=== PATIENT | female | born 1940 | race Caucasian/White ===

== ENCOUNTER → 2016-08-13 | Outpatient (CLI) | payer OTHER ==
[2016-08-13 12:29] LABS: BASO % 0.2 %; BASO ABS # 0.01 K/uL (0-0.2); COMPLETE YES; EOS % 1.3 %; HEMATOCRIT 39.9 % (37-47); IG% 0.2 %; LYMPH ABS # 0.89 K/uL (1.2-3.4); MEAN CELL VOLUME 107.5 fL (80-100); MEAN CORPUSCULAR HGB CONC 32.6 g/dl (32-36); MEAN PLATELET VOLUME 12.1 fL (7.4-10.4); MONO % 8.5 %; NEUT % 70.8 %; PLATELET COUNT 179 K/uL (130-400); RED BLOOD COUNT 3.71 M/uL (4.2-5.4); WHITE BLOOD COUNT 4.69 K/uL (4.8-10.8)
[2016-08-13 12:53] LABS: URINE APPEARANCE CLEAR (CLEAR); URINE BILIRUBIN NEG (NEG); URINE COLOR YELLOW; URINE EPITHELIAL CELL AUTO >30 /lpf (0-5); URINE NITRITE NEG (NEG); URINE PH 5.5 (4.5-7.5); UROBILINOGEN NEG (NEG)
[2016-08-13 12:54] LABS: MANUAL MICROSCOPIC REQUIRED? NO; REVIEW REQ? NO
[2016-08-13 12:58] LABS: BLOOD UREA NITROGEN 13 mg/dl (7-18); BUN/CREATININE RATIO 14.1 (10-20); CALCIUM 8.7 mg/dl (8.5-10.1); CARBON DIOXIDE 25 mmol/L (21-32); CHLORIDE 107 mmol/L (98-107); CREATININE 0.93 mg/dl (0.60-1.20); GLUCOSE 96 mg/dl (70-99); POTASSIUM 3.9 mmol/L (3.5-5.1); SODIUM 140 mmol/L (136-145)
[2016-08-13 13:10] LABS: URINE PROTIEN/CREAT RATIO 0.1 (0-0.2); URINE TOTAL PROTEIN 12.8 mg/dl (0-11.9)
== END | disposition home or self-care (01) ==
LOC: C.LABPVFM 07:24
PROVIDERS: ATTEND Family Medicine
DX: I10 Essential (primary) hypertension (principal)

== ENCOUNTER → 2016-10-11 | Outpatient (CLI) | payer OTHER ==
[2016-10-11 12:46] LABS: CALCIUM 8.7 mg/dl (8.5-10.1)
[2016-10-11 12:55] LABS: BLOOD UREA NITROGEN 17 mg/dl (7-18); BUN/CREATININE RATIO 16.8 (10-20); CARBON DIOXIDE 29 mmol/L (21-32); CHLORIDE 103 mmol/L (98-107); CHOLESTEROL 187 mg/dl (0-200); GLUCOSE 101 mg/dl (70-99); POTASSIUM 3.6 mmol/L (3.5-5.1); SODIUM 139 mmol/L (136-145); TRIGLYCERIDES 101 mg/dl (0-150); VERY LOW DENSITY LIPOPROT CALC 20 mg/dl
[2016-10-11 12:59] LABS: CHOLESTEROL/HDL RATIO 4.5; HDL CHOLESTEROL 42 mg/dl; LDL CHOLESTEROL CALCULATED 125 mg/dl
== END | disposition home or self-care (01) ==
LOC: C.LABPVFM 07:25
PROVIDERS: ATTEND Family Medicine
DX: I10 Essential (primary) hypertension (principal); Z13.220 Encounter for screening for lipoid disorders

== ENCOUNTER → 2017-03-31 | Outpatient (CLI) | payer OTHER ==
[2017-03-31 13:55] LABS: BLOOD UREA NITROGEN 15 mg/dl (7-18); BUN/CREATININE RATIO 14.1 (10-20); CALCIUM 8.5 mg/dl (8.5-10.1); CARBON DIOXIDE 30 mmol/L (21-32); CHLORIDE 103 mmol/L (98-107); CREATININE 1.05 mg/dl (0.60-1.20); GLUCOSE 102 mg/dl (70-99); POTASSIUM 3.5 mmol/L (3.5-5.1); SODIUM 136 mmol/L (136-145)
== END | disposition home or self-care (01) ==
LOC: C.LABPVFM 07:54
PROVIDERS: ATTEND Family Medicine
DX: I10 Essential (primary) hypertension (principal)

== ENCOUNTER → 2017-12-22 | Outpatient (CLI) | payer OTHER | END | disposition home or self-care (01) | LOC: C.LABPVFM 07:47 | PROVIDERS: ATTEND Family Medicine | DX: R77.1 Abnormality of globulin (principal) ==

== ENCOUNTER 2018-10-18 10:38 | Inpatient (IN) ==
[2018-10-18] MEDS ORDERED: CEFEPIME 2,000 MG/20 ML VIAL IV STA (11:12)
[2018-10-18 11:48] LABS: Hematocrit (blood only) 28.4 % (37-47); Hemoglobin 8.8 g/dL (12.0-16.0); Mean Corpuscular Volume 101.8 fL (80-100); Mean Platelet Volume 10.4 fL (7.4-10.4); Platelet Count 301 K/uL (130-400); RDW Standard Deviation 75.1 fL (36.4-46.3); Red Blood Count 2.79 M/uL (4.2-5.4); White Blood Count 4.96 K/uL (4.8-10.8)
--- NOTE | 2018-10-18 11:53 | XRay Report ---
XR chest 1V portable CLINICAL HISTORY: Sepsis. COMPARISON STUDY: PET/CT March 01, 2018. FINDINGS: There is no pneumothorax. A small left pleural effusion is suspected. Note is made of cardi omegaly. Mild interstitial thickening is present. A moderate-sized hiatal hernia is noted. Linear lef t lower lung opacity favors atelectasis. There are patchy bilateral opacities within the lungs. IMPRESSION: 1. Interstitial thickening and mild bilateral airspace opacities which may reflect pulmonary edema or an infectious process such as bronchopneumonia.. Radiographic follow up is recommended. 2. Suspected small left pleural effusion. No pneumothorax. Electronically signed by: Justin Zaidi M.D. 10/18/2018 11:52 AM
[2018-10-18 12:01] LABS: INR 1.6 (0.9-1.1); Partial Thromboplastin Ratio 1.1; Partial Thromboplastin Time 28.5 Seconds (21.0-31.0); Prothrombin Time 16.1 Seconds (9.0-12.0)
[2018-10-18 12:03] LABS: Albumin Level 2.5 gm/dl (3.4-5.0); BUN Creatinine Ratio 6.8 (10-20); Blood Urea Nitrogen 6 mg/dl (7-18); Calcium 8.2 mg/dl (8.5-10.1); Carbon Dioxide 26 mmol/L (21-32); Chloride 101 mmol/L (98-107); Creatinine Clr Calc Pharmacy 53.3 ml/min; Est GFR (African American) 75.5; Est GFR (Non-African American) 65.2; Glucose 87 mg/dl (70-99); Potassium 2.7 mmol/L (3.5-5.1); Sodium 139 mmol/L (136-145)
[2018-10-18 12:14] LABS: Alanine Aminotransferase 17 U/L (12-78); Albumin Globulin Ratio 0.7 (0.9-2); Alkaline Phosphatase 81 U/L (45-117); Aspartate Aminotransferase 18 U/L (15-37); Globulin 3.6 gm/dl (2.5-4.0); Total Protein 6.1 gm/dl (6.4-8.2); Troponin I < 0.015 ng/ml (0-0.045)
[2018-10-18 12:15] LABS: Anisocytosis Present; Polychromasia 1+
[2018-10-18 12:20] LABS: ALC (manual) 0.48 K/uL (1.2-3.4); Basophils # (manual) 0.09 K/uL (0-0.2); Basophils % (manual) 1.8 %; Blast # (manual) 0.04 K/uL (0-0); Blast Cells % (manual) 0.9 %; Lymphocytes # (manual) 0.48 K/uL (1.2-3.4); Lymphocytes % (manual) 9.7 %; Monocytes # (manual) 0.48 K/uL (0.11-0.59); Monocytes % (manual) 9.7 %; Neutrophils % (manual) 69.9 %
[2018-10-18] MEDS ORDERED: IBUPROFEN 600 MG TAB PO STA (12:48)
[2018-10-18 12:56] LABS: Appearance Urine Clear (Clear); Bacteria Urine Automated Negative (Negative); Bilirubin Urine Negative (Negative); Blood Urine Trace (Negative); Color Urine Dark Yellow; Epithelial Cell Urine Auto >30 /lpf (0-5); Glucose Urine UA Negative (Negative); Leukocyte Esterase Urine Negative (Negative); Nitrite Urine Negative (Negative); Protein Urine 2+ (Negative); Specific Gravity Urine 1.026 (1.000-1.030); Urobilinogen Urine Negative (Negative); pH Urine 5.5 (4.5-7.5)
[2018-10-18 13:05] LABS: Ketones Urine 4+ (Negative)
[2018-10-18] MEDS ORDERED: POTASSIUM CHLORIDE 20 MEQ TABCR PO STA (13:10)
[2018-10-18] MEDS ORDERED: POTASSIUM CHLORIDE / WTR 10 MEQ/100 ML PLCT IV ONE (13:10)
--- NOTE | 2018-10-18 13:26 | Emergency Department Note ---
Entered by Josselyn Givens acting as a scribe for Axle Medrano MD History of Present Illness General Chief complaint: Swelling/Edema to Extremity Stated complaint: UNABLE TO WALK SWOLLEN FEET,N/V/D,FEVER Time Seen by Provider: 10/18/18 11:04 Source: patient History of Present Illness Onset (ago): day(s) 3 Location: left (Lung) and right (Lung) Pain Consistency: + other (Persistent) Maximum Pain Intensity: 2 Quality: + other (Shortness of breath) Exacerbated By: + movement and + other (Lying flat) Associated symptoms: + cough, + fever/chills, + nausea/vomiting, + shortness of breath, + weakness and + other (Diarrhea, lower extremity swelling); no chest pain The patient is a 77 year old female presenting to the Emergency Department complaining of persistent shortness of breath starting 3 days ago. The patient reports that she is nauseous and vomits once per day. She states that she has a fever and experiences 3 to 4 episodes of diarrhea per day. She explains that she is short of breath and has a cough. She notes that lying flat and exerting herself worsens her shortness of breath. She adds that she feels weak and that her lower extremities are swollen. The patient reports that she is receiving chemotherapy for multiple myeloma. She states that she was supposed to receive chemotherapy 2 days ago but because of her symptoms listed above was not able to receive the medication. She explains that her last chemotherapy treatment was 10/09/18. She notes that [employer]TE[employer]CH[employer]ICIAN she called her PCP and oncologist who both recommended that she come to the ED. The patient denies chest pain. Home Medications Home Medications Medication Instructions Recorded Confirmed Type aspirin [Aspirin Low Dose] 81 mg PO DAILY 10/18/18 10/18/18 History bortezomib [Velcade] 0 mg SUBCUT DIRECTED 10/18/18 10/18/18 History calcium carbonate-vitamin D3 1 tab PO DAILY 10/18/18 10/18/18 History [Calcium 500 + D] denosumab [Xgeva] 0 mg SUBCUT MONTHLY 10/18/18 10/18/18 History dexamethasone 40 mg PO DIRECTED 10/18/18 10/18/18 History lenalidomide [Revlimid] 25 mg PO DIRECTED 10/18/18 10/18/18 History valacyclovir 500 mg PO DAILY 10/18/18 10/18/18 History Allergies Allergy/AdvReac Type Severity Reaction Status Date / Time iodine Allergy Mild SPOTS Unverified 06/06/09 03:24 BEHIND EARS,HEAVINESS IN LEGS AND ARMS X'S 24 HOURS No Known Drug Allergies Allergy Unknown Unverified 10/18/18 12:40 Past Med/Surg History Medical History Acute conjunctivitis of both eyes (Acute) Hypokalemia (Acute) Cholestatic jaundice (Acute) Hypersensitivity reaction (Acute) Immunocompromised patient (Acute) Acute respiratory failure with hypoxia (Acute) Pneumonia (Acute) Asthma Multiple myeloma Social History Feels Safe at Home: Yes Smoking Status: Former smoker Review of Systems See HPI for pertinent positives & negatives. and A total of 10 systems reviewed and were otherwise negative Physical Exam Vital Signs Vital Signs - 24 hr 10/18/18 10:45 10/18/18 11:15 10/18/18 11:18 Temperature 37.4 C Temperature Source Oral Sepsis Recent Fever Within 48 Hours Yes Sepsis Action Taken by Nursing MD Previously Notified Pulse Rate 96 H 90 Pulse Rate from SpO2 Sensor 90 Respiratory Rate 22 21 Blood Pressure 112/70 Blood Pressure Mean 84 Blood Pressure Position Sitting Pulse Oximetry 87 L 87 L 87 L Oxygen Delivery Method Room Air Room Air Nasal Cannula Oxygen Flow Rate 0 10/18/18 11:30 10/18/18 11:48 10/18/18 12:01 Temperature Temperature Source Sepsis Recent Fever Within 48 Hours Sepsis Action Taken by Nursing Pulse Rate 90 86 85 Pulse Rate from SpO2 Sensor 90 84 85 Respiratory Rate 24 23 22 Blood Pressure 118/58 L 113/54 L Blood Pressure Mean 78 73 Blood Pressure Position Pulse Oximetry 94 95 95 Oxygen Delivery Method Nasal Cannula Oxygen Flow Rate 2 2 2 10/18/18 12:02 10/18/18 12:15 10/18/18 12:16 Temperature Temperature Source Sepsis Recent Fever Within 48 Hours Sepsis Action Taken by Nursing Pulse Rate 85 85 85 Pulse Rate from SpO2 Sensor 85 85 85 Respiratory Rate 25 H 23 24 Blood Pressure 112/61 Blood Pressure Mean 78 Blood Pressure Position Pulse Oximetry 95 96 96 Oxygen Delivery Method Nasal Cannula Oxygen Flow Rate 2 10/18/18 12:35 10/18/18 12:59 10/18/18 14:00 Temperature 38.2 C H 37.1 C Temperature Source Sepsis Recent Fever Within 48 Hours Sepsis Action Taken by Nursing Pulse Rate 90 85 Pulse Rate from SpO2 Sensor 92 H 85 84 Respiratory Rate 24 24 Blood Pressure 140/57 L 140/57 L Blood Pressure Mean 84 84 Blood Pressure Position Pulse Oximetry 92 95 95 Oxygen Delivery Method Nasal Cannula Nasal Cannula Oxygen Flow Rate 2 2 2 GENERAL: Patient is in no acute distress. HEENT: No acute trauma, normocephalic atraumatic, mucous membranes moist, no nasal congestion. NECK: No stridor, no adenopathy, no meningismus, trachea is midline. LUNGS: Crackles bilaterally. Diminished breath sounds bilaterally. No wheezing. HEART: 2/6 systolic murmur. Regular rate and rhythm. ABDOMEN: Soft, nontender, bowel sounds positive, no hernias, no peritonitis. EXTREMITIES: No cyanosis. Full range of motion of all the joints without pain or difficulty, no signs for acute trauma. Moderate bilateral pedal edema. NEUROLOGIC: Oriented x 3, no acute motor or sensory deficits, no focal weakness. SKIN: No rash. No diaphoresis. Moderate jaundice. Course 1101: The patient was sent into the ED by [facility] oncology for nausea, vomiting, shortness of breath, cough and fever. 1106: The patient was evaluated in room C4, and a complete history and physical examination were performed. 1230: I discussed the patients case with Dr. Olga JARAMILLO hospitalist. He will evaluate the patient for further management. He asked that I order an US of the liver and gallbladder. 1232: I updated the patient at this time. Consultations Consultation #1: I discussed the patients case with Dr. Olga JARAMILLO hospitalist. He will evaluate the patient for further management. He asked that I order an US of the liver and gallbladder. Time: 12:30 Administered Medications Discontinued Medications Cefepime HCl (Maxipime) 2,000 mg in 20 mls @ 5 mls/min IV NOW STA; Protocol Stop: 10/18/18 11:15 Last Admin: 10/18/18 11:43 Dose: 5 mls/min Documented by: [id number] Potassium Chloride (K Tl / Wtr) 10 meq in 100 mls @ 100 mls/hr IV ONE ONE Stop: 10/18/18 14:09 Last Infusion: 10/18/18 15:09 Dose: 0 mls/hr Documented by: [id number] Admin: 10/18/18 14:04 Dose: 100 mls/hr Documented by: [id number] Ibuprofen (Motrin) 600 mg PO NOW STA Stop: 10/18/18 12:49 Last Admin: 10/18/18 12:56 Dose: 600 mg Documented by: [id number] Potassium Chloride (Klor-Con M20) 40 meq PO NOW STA Stop: 10/18/18 13:11 Last Admin: 10/18/18 14:04 Dose: 40 meq Documented by: [id number] Medical Decision Making Differential Diagnosis Differentials include sepsis, bacteremia, medication reaction, CHF, OR, anemia, liver or renal failure, UTI, neutropenia and electrolyte imbalance among others. Medical Records Attestation: I reviewed the patient's medical records. Home Medications Current Medication List: was personally reviewed by me Laboratory Data Attestation: I reviewed the patient's lab results. Result diagrams: 10/18/18 11:37 10/18/18 11:37 Lab Results 10/18/18 10/18/18 10/18/18 Range/Units 11:37 11:37 11:37 WBC 4.96 (4.8-10.8) K/uL RBC 2.79 L (4.2-5.4) M/uL Hgb 8.8 L (12.0-16.0) g/dL Hct 28.4 L (37-47) % MCV 101.8 H (80-100) fL MCH 31.5 (25-34) pg MCHC 31.0 L (32-36) g/dL RDW Std Deviation 75.1 H (36.4-46.3) fL RDW Coeff of Yanick 20.0 H (11.5-14.5) % Plt Count 301 (130-400) K/uL MPV 10.4 (7.4-10.4) fL Neutrophils % (Manual) 69.9 % Lymphocytes % (Manual) 9.7 % Monocytes % (Manual) 9.7 % Eosinophils % (Manual) 8.0 % Basophils % (Manual) 1.8 % Blast Cells % (Manual) 0.9 % Neutrophils # (Manual) 3.47 (1.4-6.5) K/uL Total Absolute Neuts 3.47 (1.4-6.5) K/uL Lymphocytes # (Manual) 0.48 L (1.2-3.4) K/uL Total Abs Lymphocytes 0.48 L (1.2-3.4) K/uL Monocytes # (Manual) 0.48 (0.11-0.59) K/uL Eosinophils # (Manual) 0.40 (0-0.5) K/uL Basophils # (Manual) 0.09 (0-0.2) K/uL Blast Cells # (Man) 0.04 H (0-0) K/uL Blood Smear Review Polychromasia 1+ Anisocytosis Present PT (9.0-12.0) Seconds INR (0.9-1.1) APTT (21.0-31.0) Seconds PTT Ratio Sodium 139 (136-145) mmol/L Potassium 2.7 L (3.5-5.1) mmol/L Chloride 101 (98-107) mmol/L Carbon Dioxide 26 (21-32) mmol/L Anion Gap 12.0 H (3-11) BUN 6 L (7-18) mg/dl Creatinine 0.86 (0.6-1.2) mg/dl Est Cr Clr Drug Dosing 53.3 ml/min Est GFR ( Amer) 75.5 Est GFR (Non-Af Amer) 65.2 BUN/Creatinine Ratio 6.8 L (10-20) Glucose 87 (70-99) mg/dl Lactate (0.4-2.0) mmol/L Calcium 8.2 L (8.5-10.1) mg/dl Total Bilirubin 3.0 H (0.2-1) mg/dl AST 18 (15-37) U/L ALT 17 (12-78) U/L Alkaline Phosphatase 81 (45-117) U/L Lactate Dehydrogenase (84-246) U/L Troponin I < 0.015 (0-0.045) ng/ml NT-Pro-B Natriuret Pep (0-1800) pg/ml Total Protein 6.1 L (6.4-8.2) gm/dl Albumin 2.5 L (3.4-5.0) gm/dl Globulin 3.6 (2.5-4.0) gm/dl Albumin/Globulin Ratio 0.7 L (0.9-2) Procalcitonin 3.99 H (0-0.5) ng/ml TSH 1.800 (0.300-4.500) uIu/ml Urine Color Urine Appearance (Clear) Urine pH (4.5-7.5) Ur Specific Hol[place] (1.000-1.030) Urine Protein (Negative) Urine Glucose (UA) (Negative) Urine Ketones (Negative) Urine Blood (Negative) Urine Nitrite (Negative) Urine Bilirubin (Negative) Urine Urobilinogen (Negative) Ur Leukocyte Esterase (Negative) Urine WBC (Auto) (0-5) /hpf Urine RBC (Auto) (0-4) /hpf U Hyaline Cast (Auto) (0-5) /lpf U Epithel Cells (Auto) (0-5) /lpf Urine Bacteria (Auto) (Negative) 10/18/18 10/18/18 10/18/18 Range/Units 11:37 11:37 11:37 WBC (4.8-10.8) K/uL RBC (4.2-5.4) M/uL Hgb (12.0-16.0) g/dL Hct (37-47) % MCV (80-100) fL MCH (25-34) pg MCHC (32-36) g/dL RDW Std Deviation (36.4-46.3) fL RDW Coeff of Yanick (11.5-14.5) % Plt Count (130-400) K/uL MPV (7.4-10.4) fL Neutrophils % (Manual) % Lymphocytes % (Manual) % Monocytes % (Manual) % Eosinophils % (Manual) % Basophils % (Manual) % Blast Cells % (Manual) % Neutrophils # (Manual) (1.4-6.5) K/uL Total Absolute Neuts (1.4-6.5) K/uL Lymphocytes # (Manual) (1.2-3.4) K/uL Total Abs Lymphocytes (1.2-3.4) K/uL Monocytes # (Manual) (0.11-0.59) K/uL Eosinophils # (Manual) (0-0.5) K/uL Basophils # (Manual) (0-0.2) K/uL Blast Cells # (Man) (0-0) K/uL Blood Smear Review Polychromasia Anisocytosis PT 16.1 H (9.0-12.0) Seconds INR 1.6 H (0.9-1.1) APTT 28.5 (21.0-31.0) Seconds PTT Ratio 1.1 Sodium (136-145) mmol/L Potassium (3.5-5.1) mmol/L Chloride (98-107) mmol/L Carbon Dioxide (21-32) mmol/L Anion Gap (3-11) BUN (7-18) mg/dl Creatinine (0.6-1.2) mg/dl Est Cr Clr Drug Dosing ml/min Est GFR ( Amer) Est GFR (Non-Af Amer) BUN/Creatinine Ratio (10-20) Glucose (70-99) mg/dl Lactate 1.7 (0.4-2.0) mmol/L Calcium (8.5-10.1) mg/dl Total Bilirubin (0.2-1) mg/dl AST (15-37) U/L ALT (12-78) U/L Alkaline Phosphatase (45-117) U/L Lactate Dehydrogenase 283 H (84-246) U/L Troponin I (0-0.045) ng/ml NT-Pro-B Natriuret Pep (0-1800) pg/ml Total Protein (6.4-8.2) gm/dl Albumin (3.4-5.0) gm/dl Globulin (2.5-4.0) gm/dl Albumin/Globulin Ratio (0.9-2) Procalcitonin (0-0.5) ng/ml TSH (0.300-4.500) uIu/ml Urine Color Urine Appearance (Clear) Urine pH (4.5-7.5) Ur Specific Hol[place] (1.000-1.030) Urine Protein (Negative) Urine Glucose (UA) (Negative) Urine Ketones (Negative) Urine Blood (Negative) Urine Nitrite (Negative) Urine Bilirubin (Negative) Urine Urobilinogen (Negative) Ur Leukocyte Esterase (Negative) Urine WBC (Auto) (0-5) /hpf Urine RBC (Auto) (0-4) /hpf U Hyaline Cast (Auto) (0-5) /lpf U Epithel Cells (Auto) (0-5) /lpf Urine Bacteria (Auto) (Negative) 10/18/18 10/18/18 Range/Units 11:37 12:30 WBC (4.8-10.8) K/uL RBC (4.2-5.4) M/uL Hgb (12.0-16.0) g/dL Hct (37-47) % MCV (80-100) fL MCH (25-34) pg MCHC (32-36) g/dL RDW Std Deviation (36.4-46.3) fL RDW Coeff of Yanick (11.5-14.5) % Plt Count (130-400) K/uL MPV (7.4-10.4) fL Neutrophils % (Manual) % Lymphocytes % (Manual) % Monocytes % (Manual) % Eosinophils % (Manual) % Basophils % (Manual) % Blast Cells % (Manual) % Neutrophils # (Manual) (1.4-6.5) K/uL Total Absolute Neuts (1.4-6.5) K/uL Lymphocytes # (Manual) (1.2-3.4) K/uL Total Abs Lymphocytes (1.2-3.4) K/uL Monocytes # (Manual) (0.11-0.59) K/uL Eosinophils # (Manual) (0-0.5) K/uL Basophils # (Manual) (0-0.2) K/uL Blast Cells # (Man) (0-0) K/uL Blood Smear Review Polychromasia Anisocytosis PT (9.0-12.0) Seconds INR (0.9-1.1) APTT (21.0-31.0) Seconds PTT Ratio Sodium (136-145) mmol/L Potassium (3.5-5.1) mmol/L Chloride (98-107) mmol/L Carbon Dioxide (21-32) mmol/L Anion Gap (3-11) BUN (7-18) mg/dl Creatinine (0.6-1.2) mg/dl Est Cr Clr Drug Dosing ml/min Est GFR ( Amer) Est GFR (Non-Af Amer) BUN/Creatinine Ratio (10-20) Glucose (70-99) mg/dl Lactate (0.4-2.0) mmol/L Calcium (8.5-10.1) mg/dl Total Bilirubin (0.2-1) mg/dl AST (15-37) U/L ALT (12-78) U/L Alkaline Phosphatase (45-117) U/L Lactate Dehydrogenase (84-246) U/L Troponin I (0-0.045) ng/ml NT-Pro-B Natriuret Pep 535 (0-1800) pg/ml Total Protein (6.4-8.2) gm/dl Albumin (3.4-5.0) gm/dl Globulin (2.5-4.0) gm/dl Albumin/Globulin Ratio (0.9-2) Procalcitonin (0-0.5) ng/ml TSH (0.300-4.500) uIu/ml Urine Color Dark Yellow Urine Appearance Clear (Clear) Urine pH 5.5 (4.5-7.5) Ur Specific Hol[place] 1.026 (1.000-1.030) Urine Protein 2+ H (Negative) Urine Glucose (UA) Negative (Negative) Urine Ketones 4+ H (Negative) Urine Blood Trace H (Negative) Urine Nitrite Negative (Negative) Urine Bilirubin Negative (Negative) Urine Urobilinogen Negative (Negative) Ur Leukocyte Esterase Negative (Negative) Urine WBC (Auto) 1-5 (0-5) /hpf Urine RBC (Auto) 5-10 H (0-4) /hpf U Hyaline Cast (Auto) 5-10 H (0-5) /lpf U Epithel Cells (Auto) >30 H (0-5) /lpf Urine Bacteria (Auto) Negative (Negative) Imaging Data Radiologist's Impression: Radiology results as stated below per my review and the radiologist's interpretation: XR chest 1V portable CLINICAL HISTORY: Sepsis. COMPARISON STUDY: PET/CT March 01, 2018. FINDINGS: There is no pneumothorax. A small left pleural effusion is suspected. Note is made of cardiomegaly. Mild interstitial thickening is present. A moderate-sized hiatal hernia is noted. Linear left lower lung opacity favors atelectasis. There are patchy bilateral opacities within the lungs. IMPRESSION: 1. Interstitial thickening and mild bilateral airspace opacities which may reflect pulmonary edema or an infectious process such as bronchopneumonia.. Radiographic follow up is recommended. 2. Suspected small left pleural effusion. No pneumothorax. Electronically signed by: Justin Zaidi M.D. 10/18/2018 11:52 AM ECG Data Attestation: I personally reviewed and interpreted this ECG as follows: Indication: SOB/dyspnea Rate (beats per minute): 89 Rhythm: normal sinus Findings: + other (Old inferior infarct. ); no PVC and no ST elevation Blood Pressure Blood Pressure Findings: Elevated blood pressure Blood Pressure Disposition: further management by hospitalist MDM Narrative There is no leukocytosis. Patient is anemic but she has been anemic lately, likely from her chemotherapy-I was able to review labs from the [facility] system. There is a normal platelet count. INR is elevated at 1.6, this is concerning for liver injury. Potassium was low at 2.7, no kidney failure. Bilirubin was elevated at 3, this explains her jaundice. The alk phos and AST/ALT were normal. The patient appeared to be in a euthyroid state. Chest film suggests a patchy pneumonia versus some CHF. No pneumothorax. Lactic acid level was not elevated making severe sepsis less likely. BNP was not elevated making CHF less likely. EKG showed a sinus rhythm, no acute ischemia. Cardiac enzyme testing x1 is not consistent with acute cardiac injury. Blood cultures are pending. The patient presents with jaundice, pedal edema, hypoxia and cough. She has had a fever. She appears to have pneumonia by work-up. The edema and liver issues may be related to this infection although, these latter issues may be from her chemo medications themselves. The patient received IV ceftriaxone as antibiotic coverage. She was given oral Motrin for her fever. She received oral and IV potassium for the lower potassium value. Patient is in need of a hospital stay, I spoke to her and to case management. The on-call hospitalist has been consulted. The patient is not stable for discharge home. Impression & Plan Hypoxia, Liver failure, Fluid overload, Anemia, Fever, Pneumonia Discharge Plan Visit Data Chief Complaint: Swelling/Edema to Extremity Stated Complaint: UNABLE TO WALK SWOLLEN FEET,N/V/D,FEVER ED Provider: Axel Medrano Discharge Problem: Hypoxia, Liver failure, Fluid overload, Anemia, Fever, Pneumonia Patient Disposition: Being Evaluated by Hospitalist Forms Stand Alone Forms: My [facility] Prescriptions Prescriptions: No Action valacyclovir 500 mg tablet 500 mg PO DAILY RF: 0 aspirin [Aspirin Low Dose] 81 mg Tablet,Delayed Release (Dr/Ec) 81 mg PO DAILY RF: 0 dexamethasone 4 mg tablet 40 mg PO DIRECTED RF: 0 Velcade 3.5 mg Recon Soln subcut DIRECTED RF: 0 calcium carbonate-vitamin D3 [Calcium 500 + D] 500 mg(1,250mg) -200 unit Tablet 1 tab PO DAILY RF: 0 Revlimid 25 mg capsule 25 mg PO DIRECTED RF: 0 Xgeva 120 mg/1.7 mL (70 mg/mL) Solution SUBCUT MONTHLY RF: 0 Referrals Referrals: Andres Maria MD [Primary Care Provider] - Discharge Problem: Liver failure Qualifiers: Liver failure chronicity: unspecified chronicity Hepatic coma status: without hepatic coma Qualified Code(s): K72.90 - Hepatic failure, unspecified without coma Fluid overload Qualifiers: Hypervolemia type: unspecified Qualified Code(s): E87.70 - Fluid overload, unspecified Anemia Qualifiers: Anemia type: unspecified type Qualified Code(s): D64.9 - Anemia, unspecified Fever Qualifiers: Fever type: unspecified Qualified Code(s): R50.9 - Fever, unspecified Pneumonia Qualifiers: Pneumonia type: due to unspecified organism Laterality: bilateral Lung location: unspecified part of lung Qualified Code(s): J18.9 - Pneumonia, unspecified organism The scribe's documentation has been prepared under my direction and personally reviewed by me in its entirety. I confirm that the note above accurately reflects all work, treatment, procedures, and medical decision making performed by me.
--- NOTE | 2018-10-18 13:39 | Ultrasound Report ---
US gallbladder HISTORY: 77 years-old Female jaundice acute jaundice COMPARISON: PET CT 03/01/2018 TECHNIQUE: Multiple real-time sonographic images of the abdominal right upper quadrant were obtained assessing grayscale appearance and color flow FINDINGS: Pancreas is mostly obscured by bowel gas. The visualized portions of the pancreas appear unremarkable . Increased echogenicity of the liver suggests hepatic steatosis. No focal hepatic mass lesion or mar ginal nodularity to suggest cirrhosis. No intrahepatic biliary ductal dilation. Gallbladder is unrema rkable. No cholelithiasis, gallbladder wall thickening or pericholecystic fluid. Common bile duct is normal, 5 mm. There is an exophytic 4.6 cm cyst about the superior pole right kidney. No right-sided hydronephrosis . IMPRESSION: 1. Hepatic steatosis. 2. No cholelithiasis or sonographic evidence of acute cholecystitis. 3. No biliary ductal dilation. The above report was generated using voice recognition software. It may contain grammatical, syntax o r spelling errors. Electronically signed by: Paulo Olvera M.D. 10/18/2018 1:38 PM
--- NOTE | 2018-10-18 14:35 | History & Physical Report ---
Date of Service October 18, 2018 Assessment & Plan (1) Pneumonia: Bilateral appearing. Continue intravenous cefepime and vancomycin. Consult infectious disease. Obtain sputum culture if sputum is produced Present on Admission?: Yes (2) Acute respiratory failure with hypoxia: Supplemental oxygen to maintain saturation greater than 90%. Wean off as tolerated Present on Admission?: Yes (3) Immunocompromised patient: Due to chemotherapy for multiple myeloma. Present on Admission?: Yes (4) Hypersensitivity reaction: Possible hypersensitivity producing multiple symptoms including edema, cholestatic jaundice, nausea, vomiting, diarrhea, weakness. Consult oncology. Multiple medications currently on hold Present on Admission?: Yes (5) Cholestatic jaundice: Total bilirubin mildly elevated. Abdominal ultrasound negative except for hepatic steatosis. No evidence of biliary obstruction. Will follow (6) Hypokalemia: Oral replacement. Serial labs Present on Admission?: Yes (7) Acute conjunctivitis of both eyes: Gentamicin eyedrops. Present on Admission?: Yes History of Present Illness Chief Complaint: Nonproductive cough, fever, shortness of breath, swelling Primary Care Provider: Andres Maria MD 77-year-old female being treated for multiple myeloma with Velcade and Xgeva, and Revlimid. She has developed a nonproductive cough along with fever and weakness and edema. She has evidence of bilateral pneumonia on chest x-ray and is mildly hypoxic on room air at 87%. Lactic acid is 1.7. She is also hypokalemic. Her total bilirubin is slightly elevated and she may have cholestatic jaundice. Liver functions are normal except for mildly elevated LDH. Gallbladder ultrasound reveals hepatic steatosis but no obstruction. This will be followed. Infectious disease consultation and oncology consultation will be requested. She will be given cefepime and vancomycin for now. She has been pancultured. She is admitted for further evaluation and treatment. Allergies Allergy/AdvReac Type Severity Reaction Status Date / Time iodine Allergy Mild SPOTS Unverified 06/06/09 03:24 BEHIND EARS,HEAVINESS IN LEGS AND ARMS X'S 24 HOURS No Known Drug Allergies Allergy Unknown Unverified 10/18/18 12:40 Home Medications Home Medications Medication Instructions Recorded Confirmed Type aspirin [Aspirin Low Dose] 81 mg PO DAILY 10/18/18 10/18/18 History bortezomib [Velcade] 0 mg SUBCUT DIRECTED 10/18/18 10/18/18 History calcium carbonate-vitamin D3 1 tab PO DAILY 10/18/18 10/18/18 History [Calcium 500 + D] denosumab [Xgeva] 0 mg SUBCUT MONTHLY 10/18/18 10/18/18 History dexamethasone 40 mg PO DIRECTED 10/18/18 10/18/18 History lenalidomide [Revlimid] 25 mg PO DIRECTED 10/18/18 10/18/18 History valacyclovir 500 mg PO DAILY 10/18/18 10/18/18 History Past Med/Surg History Medical History Asthma Multiple myeloma Social History Feels Safe at Home: Yes Smoking Status: Former smoker Review of Systems Review of Systems: Constitutional-fever, chills, weakness ENT-no blurred vision, no double vision, no epistaxis, no sore throat Respiratory-nonproductive cough, shortness of breath Cardiac-no palpitations, no chest pain, no syncope GI-persistent nausea vomiting and diarrhea -no urinary retention, no urinary incontinence, no dysuria, no hematuria Musculoskeletal-no joint pain, no muscle tenderness. Gradual onset of edema Skin-no bruising, no rashes, no pruritus Neuro-worsening generalized weakness Psych-no depression, no anxiety Physical Exam Physical Exam: General-alert and oriented x3. Complaining of generalized weakness HEENT-head atraumatic and normocephalic, TMs intact bilaterally, pupils equal and reactive to light, extraocular muscles intact. Sclera mildly icteric Neck-no lymphadenopathy or thyromegaly, trachea midline Chest-faint coarse bilateral inspiratory rales. No wheezing. No dullness to percussion Cardiac-regular rate and rhythm, normal S1 and S2, no murmurs Abdomen-normal bowel sounds, nontender, no hepatosplenomegaly Extremities-no cyanosis, clubbing. 1+ pitting edema bilateral lower extremities Neuro-cranial nerves II through XII intact, motor and sensory function within normal limits, strength symmetrical with generalized weakness, no focal deficits Psych-normal affect, normal mood Results & Data Vital Signs (Past 12 Hours) Vital Signs Temp Pulse Resp BP Pulse Ox 10/18/18 12:59 140/57 L 95 10/18/18 12:35 38.2 C H 90 24 140/57 L 92 10/18/18 12:16 85 24 112/61 96 10/18/18 12:15 85 23 96 10/18/18 12:02 85 25 H 95 10/18/18 12:01 85 22 113/54 L 95 10/18/18 11:48 86 23 118/58 L 95 10/18/18 11:30 90 24 94 10/18/18 11:18 87 L 10/18/18 11:15 90 21 87 L 10/18/18 10:45 37.4 C 96 H 22 112/70 87 L Laboratory Results 10/18/18 11:37 10/18/18 11:37 PG Care Time/CCT Total # of Minutes Spent Total Time Spent with Patient: Total time spent is greater than 50% in coordination of care (as documented) at patient's floor/unit and/or counseling patient:
[2018-10-18] MEDS ORDERED: VANCOMYCIN HCL 1,000 MG in SODIUM CHLORIDE 0.9% 250 ML IV SCH (16:39)
[2018-10-18] MEDS ORDERED: ALUMINUM/MAGNESIUM SUSP 30 ML UDC PO PRN (16:39)
[2018-10-18] MEDS ORDERED: ONDANSETRON INJ 2 MG/ML 2 ML VIAL IV PRN (16:39)
[2018-10-18] MEDS ORDERED: ACETAMINOPHEN 325 MG TAB PO PRN (16:39)
[2018-10-18] MEDS ORDERED: VANCOMYCIN CONSULT ACTIVE PRN (16:39)
[2018-10-18] MEDS ORDERED: VANCOMYCIN HCL 1,750 MG in SODIUM CHLORIDE 0.9% 500 ML IV ONE (17:45)
[2018-10-18] MEDS: SODIUM CHLORIDE 0.9% 1000ML 1,000 ML IV SCH (17:59)
[2018-10-18] MEDS: GENTAMICIN SULFATE 0.3% OP SOLN 5 ML BTL OPB SCH ×2 (18:04→21:09)
--- NOTE | 2018-10-18 20:18 | Pharmacy Report ---
Pharmacy Abx Initial Consult - Date of Service October 18, 2018 - Pharmacy Dosing Scope Date of Consult: 10/18/18 Consultation requested by: Dr. Espinoza Pharmacy is consulted to initiate Vancomycin IV dosing therapy, order appropriate labs and adjust drug dose/frequency. - Subjective The patient is a 77 year old F admitted on 10/18/18 14:32. - Objective Height: 5 ft 4 in Weight: 75.2 kg Vital Signs (Past 12hrs): Vital Signs Temp Pulse Pulse Resp BP BP Pulse Ox 10/18/18 18:47 36.9 C 82 20 133/66 91 10/18/18 16:40 36.9 C 87 18 120/64 93 10/18/18 16:30 83 10/18/18 16:00 89 18 144/58 H 99 10/18/18 14:00 37.1 C 85 24 95 10/18/18 12:59 140/57 L 95 10/18/18 12:35 38.2 C H 90 24 140/57 L 92 10/18/18 12:16 85 24 112/61 96 10/18/18 12:15 85 23 96 10/18/18 12:02 85 25 H 95 10/18/18 12:01 85 22 113/54 L 95 10/18/18 11:48 86 23 118/58 L 95 10/18/18 11:30 90 24 94 10/18/18 11:18 87 L 10/18/18 11:15 90 21 87 L 10/18/18 10:45 37.4 C 96 H 22 112/70 87 L Lab Results (24hrs): Laboratory Tests (24 Hours) 10/18/18 10/18/18 10/18/18 11:37 11:37 11:37 WBC 4.96 Creatinine 0.86 Est Cr Clr Drug Dosing 53.3 Procalcitonin 3.99 H Micro Results: 10/18/18 11:37 Aerobic Blood Culture - Pending Blood Anaerobic Blood Culture - Pending 10/18/18 11:37 Aerobic Blood Culture - Pending Blood Anaerobic Blood Culture - Pending - Risk Factors for Resistance * Immunocompromised - pt being treated for multiple myeloma. Pt on Velcade, Revlimid, and Xgeva. Last dose 10/09/18 * - Assessment & Plan Assessment 77 year old F with multiple myeloma presented to ED upon suggestion of her PCP and Oncologist for worsening nonproductive cough, fever, and generalized weakness. ID consulted. Chest XRay shows possible bi-lateral pneumonia, CT recommended. Procal 3.99, lactic acid 1.7. Spiked one fever since admission of 38.2. MRSA swab pending to aid in possible deescalation. Plan Vancomycin and Cefepime for treatment of pneumonia. Vancomycin IV * Estimated PK Parameters: Vd 0.7 L/kg, Abiel 0.048 hr-1, t1/2 14 hr * Loading dose: 1750 mg (23.2 mg/kg) * Maintenance dose: 1000 mg IV (13.3 mg/kg) every 16 hours * Goal trough level : 15 to 20 mcg/mL * Trough/Random level ordered for 10/21/18 before 4th maintenance dose. * Cefepime * Not a pharmacy consult but dose is appropriate for renal function and clinical indication. * Target dose 2gm IV Q8h * For CrCl 30-60 mL/min -- 2 gm IV q12h. Pharmacy will continue to follow and will adjust dose/frequency as necessary. Thank you.
[2018-10-18] MEDS: POTASSIUM CHLORIDE 10 MEQ TABCR PO SCH (21:10)
[2018-10-19] MEDS: CEFEPIME 2,000 MG in SYRINGE 7.5 ML IV SCH ×3 (00:09→23:45)
[2018-10-19 05:49] LABS: Basophils # (auto) 0.03 K/uL (0-0.2); Basophils % (auto) 0.9 %; Eosinophils # (auto) 0.36 K/uL (0-0.5); Eosinophils % (auto) 10.4 %; Hematocrit (blood only) 26.6 % (37-47); Hemoglobin 8.3 g/dL (12.0-16.0); Immature Granulocytes # (auto) 0.02 K/uL (0.00-0.02); Immature Granulocytes % (auto) 0.6 %; Lymphocytes # (auto) 0.23 K/uL (1.2-3.4); Lymphocytes % (auto) 6.6 %; Mean Corpuscular Hgb Conc 31.2 g/dL (32-36); Mean Corpuscular Volume 103.1 fL (80-100); Mean Platelet Volume 10.4 fL (7.4-10.4); Monocytes # (auto) 0.39 K/uL (0.11-0.59); Monocytes % (auto) 11.3 %; Neutrophils # (auto) 2.43 K/uL (1.4-6.5); Neutrophils % (auto) 70.2 %; Nucleated RBC # (auto) 0.03 K/uL (0-0); Nucleated RBC % (auto) 0.8 %; Platelet Count 301 K/uL (130-400); RDW Coefficient of Variation 20.1 % (11.5-14.5); RDW Standard Deviation 76.4 fL (36.4-46.3); Red Blood Count 2.58 M/uL (4.2-5.4); White Blood Count 3.46 K/uL (4.8-10.8)
[2018-10-19 06:16] LABS: Anisocytosis Present; Dohle Bodies 1+; Giant Platelets 1+
[2018-10-19] MEDS: POTASSIUM CHLORIDE 10 MEQ TABCR PO SCH ×2 (08:06→20:42)
[2018-10-19] MEDS: ASPIRIN 81 MG ECTAB PO SCH (08:06)
[2018-10-19] MEDS: VALACYCLOVIR HCL 500 MG TABLET PO SCH (08:06)
[2018-10-19] MEDS: CALCIUM 600MG + VIT D 400 IU TAB PO SCH (08:07)
[2018-10-19] MEDS: GENTAMICIN SULFATE 0.3% OP SOLN 5 ML BTL OPB SCH ×4 (08:07→20:41)
[2018-10-19 08:38] LABS: BUN Creatinine Ratio 10.3 (10-20); Bilirubin Direct 0.7 mg/dl (0-0.2); Calcium 7.5 mg/dl (8.5-10.1); Creatinine Clr Calc Pharmacy 73.1 ml/min; Est GFR (African American) 99.8; Est GFR (Non-African American) 86.1
[2018-10-19 08:45] LABS: Albumin Globulin Ratio 0.6 (0.9-2); Bilirubin,Total 2.3 mg/dl (0.2-1); Globulin 3.1 gm/dl (2.5-4.0); Total Protein 5.1 gm/dl (6.4-8.2)
[2018-10-19] MEDS: SODIUM CHLORIDE 0.9% 1000ML 1,000 ML IV SCH ×2 (09:35→19:31)
[2018-10-19] MEDS ORDERED: VANCOMYCIN HCL 1,000 MG in SODIUM CHLORIDE 0.9% 250 ML IV SCH (10:00)
--- NOTE | 2018-10-19 10:44 | Infectious Disease Consult ---
Date of Consultation October 19, 2018 Assessment & Plan (1) Pneumonia: 77-year-old female with metastatic myeloma on chemotherapy, now with evidence of bilateral pneumonia with elevated procalcitonin levels. Agree with need for broad-spectrum antibiotics, would add coverage for atypical pathogens such as Legionella given recent travel. Vancomycin will be discontinued as MRSA screen is negative. Further serologies and urine studies ordered. Will follow. (2) Immunocompromised patient: History of Present Illness Reason for Consultation: Bilateral pneumonia in immunocompromised patient Attending Physician: Hipolito Salomon MD History of Present Illness 77-year-old female with known metastatic multiple myeloma on chemotherapy, last several weeks ago, who was admitted to the hospital with 3 to 4 days of progressively worsening shortness of breath, cough, with fever, weakness and fatigue. Has been found to have evidence of bilateral pneumonitis with elevated procalcitonin levels. Has been started on vancomycin and cefepime. Patient also with elevated bilirubin, ultrasound negative for disease. MRSA screen negative. Patient states that she traveled to [place] prior to her illness, spent 1 week cruising back to [facility] then short stay in [facility]. No companions ill, no other ill contacts. Allergies Allergy/AdvReac Type Severity Reaction Status Date / Time iodine Allergy Mild SPOTS Unverified 06/06/09 03:24 BEHIND EARS,HEAVINESS IN LEGS AND ARMS X'S 24 HOURS No Known Drug Allergies Allergy Unknown Unverified 10/18/18 12:40 Home Medications Home Medications Medication Instructions Recorded Confirmed Type aspirin [Aspirin Low Dose] 81 mg PO DAILY 10/18/18 10/18/18 History bortezomib [Velcade] 0 mg SUBCUT DIRECTED 10/18/18 10/18/18 History calcium carbonate-vitamin D3 1 tab PO DAILY 10/18/18 10/18/18 History [Calcium 500 + D] denosumab [Xgeva] 0 mg SUBCUT MONTHLY 10/18/18 10/18/18 History dexamethasone 40 mg PO DIRECTED 10/18/18 10/18/18 History lenalidomide [Revlimid] 25 mg PO DIRECTED 10/18/18 10/18/18 History valacyclovir 500 mg PO DAILY 10/18/18 10/18/18 History Patient History Medical History Acute conjunctivitis of both eyes (Acute) Hypokalemia (Acute) Cholestatic jaundice (Acute) Hypersensitivity reaction (Acute) Immunocompromised patient (Acute) Acute respiratory failure with hypoxia (Acute) Pneumonia (Acute) Asthma Multiple myeloma Social History Preferred Language: [place]i Beliefs That Will Affect Care: None Current Living Situation: Spouse Other Information That Helps Us Care for You: No Feels Safe at Home: Yes Safety Concerns: Feels Safe At This Time Smoking Status: Former smoker Hx Alcohol Use: No Hx Substance Use: No Review of Systems Review of Systems: All systems reviewed & are unremarkable except as noted in HPI & below Physical Exam Constitutional: WD/WN, vitals as above comfortable; no acute distress Eyes: no eyelid abnormality and no conjunctival abnormality Icteric sclerae ENMT: external ear and nose normal, oropharynx normal Neck: trachea midline, no thyromegaly neck nontender Respiratory: normal respiratory effort, lungs clear to auscultation normal percussion; does not use accessory muscles Cardiovascular: Rate/Rhythm: regular rate and regular rhythm Heart Sounds: normal S1 and normal S2; no gallop, no murmur and no cardiac rub Vessels: normal peripheral pulses; no JVD Gastrointestinal (Abdomen): normal bowel sounds, soft, nontender, no hepatosplenomegaly Musculoskeletal: no cyanosis or clubbing, extremities motor strength 5/5 Spine: thoracic spine normal to inspection and lumbar spine normal to inspection; no cervical spinal tenderness Skin: no rashes, warm and dry normal turgor; no lesions Neurologic: patellar DTR's 2+ bilat, sensation intact no focal motor deficits Psychiatric: A+Ox3, euthymic affect Orientation: cooperative Lymphatic: no cervical or axillary lymphadenopathy no inguinal lymphadenopathy Results & Data Vital Signs (Past 12 Hours) Vital Signs Temp Pulse Pulse Resp BP Pulse Ox 10/19/18 08:00 37.3 C 82 18 111/57 L 92 10/19/18 03:00 37.1 C 74 18 111/60 97 10/18/18 23:06 37.1 C 75 18 104/59 L 98 Laboratory Results Short CBC 10/18/18 10/19/18 Range/Units 11:37 05:14 WBC 4.96 3.46 L (4.8-10.8) K/uL Hgb 8.8 L 8.3 L (12.0-16.0) g/dL Hct 28.4 L 26.6 L (37-47) % Plt Count 301 301 (130-400) K/uL BMP 10/18/18 10/19/18 11:37 05:14 Sodium 139 141 Potassium 2.7 L 3.0 L Chloride 101 107 Carbon Dioxide 26 28 BUN 6 L 7 Creatinine 0.86 0.64 Glucose 87 67 L Calcium 8.2 L 7.5 L Cardiac Enzymes 10/18/18 Range/Units 11:37 Troponin I < 0.015 (0-0.045) ng/ml Liver Function 10/18/18 10/19/18 Range/Units 11:37 05:14 Total Bilirubin 3.0 H 2.3 H (0.2-1) mg/dl Direct Bilirubin 0.7 H (0-0.2) mg/dl AST 18 17 (15-37) U/L ALT 17 15 (12-78) U/L Alkaline Phosphatase 81 74 (45-117) U/L Albumin 2.5 L 2.0 L (3.4-5.0) gm/dl Urine 10/18/18 Range/Units 12:30 Urine Color Dark Yellow Urine Appearance Clear (Clear) Urine pH 5.5 (4.5-7.5) Ur Specific [place] 1.026 (1.000-1.030) Urine Protein 2+ H (Negative) Urine Glucose (UA) Negative (Negative) Diagnostic Findings XR chest 1V portable CLINICAL HISTORY: Sepsis. COMPARISON STUDY: PET/CT March 01, 2018. FINDINGS: There is no pneumothorax. A small left pleural effusion is suspected. Note is made of cardiomegaly. Mild interstitial thickening is present. A moderate-sized hiatal hernia is noted. Linear left lower lung opacity favors atelectasis. There are patchy bilateral opacities within the lungs. IMPRESSION: 1. Interstitial thickening and mild bilateral airspace opacities which may reflect pulmonary edema or an infectious process such as bronchopneumonia.. Radiographic follow up is recommended. 2. Suspected small left pleural effusion. No pneumothorax. Electronically signed by: Justin Zaidi M.D. 10/18/2018 11:52 AM (1) Pneumonia Laterality: bilateral Lung location: unspecified part of lung Pneumonia type: due to unspecified organism Qualified Code(s): J18.9 - Pneumonia, unspecified organism
[2018-10-19] MEDS: DOXYCYCLINE HYCLATE 100 MG in DEXTROSE 5% 100 ML IV SCH ×2 (11:30→20:40)
--- NOTE | 2018-10-19 11:40 | Family Medicine Progress Note ---
Date of Service October 19, 2018 Assessment & Plan (1) Pneumonia: 77yo female with a PMHx significant for multiple myeloma with pneumonia, currently being treated with cefepime and doxycycline. Pneumonia -Chest XR suggestive, also with pleural effusion on left -continue O2 supplementation for hypoxia -sputum culture pending -Appreciate ID recs Acute resp Failure with hypoxia - cont supp O2 as needed. -will continue to monitor need Multiple Myeloma - currently on Velcade, Revlimid -Also on Xgeva -likely cause of pancytopenia, increased bili -will continue to monitor -oncology recs appreciated Hypokalemia -Likely sideeffect of MM medication (Revlimid) -will continue to replete and monitor Acute conjunctivitis -cont Gentamycin drops DVT proph: SCDs FEN/GI: Regular Diet CODE STATUS: FULL CODE Supervising Physician Co-Signing Physician Notes Attending attestation Pt seen and examined in concert with Dr. Dorman. In agreement with the documented findings as noted in the resident documentation with any exceptions or additions as noted here. Feeling cold, but no rigors/fever noted. Breathing comfortably on 1.5LNC. On examination, S1/S2 nl RRR no MCG. CTAB with mild decreased breath sounds at the bases. Sepsis in the setting of Bilateral pneumonia - infectious disease consultation appreciated - continue cefepime and doxycycline. Awaiting culture results. May need O2 on discharge, patient adjusting to this idea. Multiple myeloma - holding medications 2/2 reported hypersensitivity - oncology consultation appreciated for recommendations re: restarting therapy Elevated INR - some hepatic steatosis evident, but no overt cause appreciated. May also be related to chemotherapy regimen, would appreciate oncology input. SCDs for DVT ppx for now. Hypokalemia - replete and repeat @ 1600 Else see resident documentation as noted. Subjective Ms. Flores states that she is fatigued. Still has a cough and was feeling cold. Denies MOCTEZUMA, chest pain, SOB, palpitations, N/V, diarrhea or constipation. Review of Systems Review of Systems: All systems reviewed & are unremarkable except as noted in HPI & below Physical Exam Physical Exam: General: Alert, oriented. HEENT: NC/AT, Eyes with ointment. Nasal cannula in nares. Chest: Nontender to palpation. CV: RRR, Normal s1, s2. No murmurs appreciated Resp: Breath sounds clear bilaterally, no increased effort of breathing. Abdomen: Soft, nontender, nondistended. No guarding. No organomegaly appreciated. Extremities: Some lower extremity edema. Results & Data Vital Signs (Past 12 Hours) Vital Signs Temp Pulse Pulse Resp BP Pulse Ox 10/19/18 08:00 37.3 C 82 18 111/57 L 92 10/19/18 03:00 37.1 C 74 18 111/60 97 Laboratory Results Laboratory Results - last 24 hr 10/18/18 10/19/18 10/19/18 21:11 05:14 05:14 WBC 3.46 L RBC 2.58 L Hgb 8.3 L Hct 26.6 L MCV 103.1 H MCH 32.2 MCHC 31.2 L RDW Std Deviation 76.4 H RDW Coeff of [place] 20.1 H Plt Count 301 MPV 10.4 Immature Gran % (Auto) 0.6 Neut % (Auto) 70.2 Lymph % (Auto) 6.6 [place] % (Auto) 11.3 Eos % (Auto) 10.4 Baso % (Auto) 0.9 Immature Gran # (Auto) 0.02 Neut # (Auto) 2.43 Lymph # (Auto) 0.23 L [place] # (Auto) 0.39 Eos # (Auto) 0.36 Baso # (Auto) 0.03 Absolute Nucleated RBC 0.03 H Nucleated RBC % (auto) 0.8 Dohle Bodies 1+ Giant Platelets 1+ Anisocytosis Present Sodium 141 Potassium 3.0 L Chloride 107 Carbon Dioxide 28 Anion Gap 7.0 BUN 7 Creatinine 0.64 Est Cr Clr Drug Dosing 73.1 Est GFR ( Amer) 99.8 Est GFR (Non-Af Amer) 86.1 BUN/Creatinine Ratio 10.3 Glucose 67 L Calcium 7.5 L Total Bilirubin 2.3 H Direct Bilirubin 0.7 H AST 17 ALT 15 Alkaline Phosphatase 74 Total Protein 5.1 L Albumin 2.0 L Globulin 3.1 Albumin/Globulin Ratio 0.6 L Nasal Screen MRSA (PCR) Negative L.pneumophila IgM Ab Mycoplasma pneumon IgG Mycoplasma pneumon IgM 10/19/18 11:38 WBC RBC Hgb Hct MCV MCH MCHC RDW Std Deviation RDW Coeff of Yanick Plt Count MPV Immature Gran % (Auto) Neut % (Auto) Lymph % (Auto) [place] % (Auto) Eos % (Auto) Baso % (Auto) Immature Gran # (Auto) Neut # (Auto) Lymph # (Auto) [place] # (Auto) Eos # (Auto) Baso # (Auto) Absolute Nucleated RBC Nucleated RBC % (auto) Dohle Bodies Giant Platelets Anisocytosis Sodium Potassium Chloride Carbon Dioxide Anion Gap BUN Creatinine Est Cr Clr Drug Dosing Est GFR ( Amer) Est GFR (Non-Af Amer) BUN/Creatinine Ratio Glucose Calcium Total Bilirubin Direct Bilirubin AST ALT Alkaline Phosphatase Total Protein Albumin Globulin Albumin/Globulin Ratio Nasal Screen MRSA (PCR) L.pneumophila IgM Ab Pending Mycoplasma pneumon IgG Pending Mycoplasma pneumon IgM Pending Medications Administered Home Medications aspirin [Aspirin Low Dose] 81 mg PO DAILY 10/18/18 [History Confirmed 10/18/18] bortezomib [Velcade] 0 mg SUBCUT DIRECTED 10/18/18 [History Confirmed 10/18/18] calcium carbonate-vitamin D3 [Calcium 500 + D] 1 tab PO DAILY 10/18/18 [History Confirmed 10/18/18] denosumab [Xgeva] 0 mg SUBCUT MONTHLY 10/18/18 [History Confirmed 10/18/18] dexamethasone 40 mg PO DIRECTED 10/18/18 [History Confirmed 10/18/18] lenalidomide [Revlimid] 25 mg PO DIRECTED 10/18/18 [History Confirmed 10/18/18] valacyclovir 500 mg PO DAILY 10/18/18 [History Confirmed 10/18/18] Active Medications Acetaminophen (Tylenol) 650 mg PO Q4H PRN PRN Reason: Pain or Fever Stop: 11/17/18 16:38 Al Hydrox/Mg Hydrox/Simethicone (Maalox) 15 ml PO Q4H PRN PRN Reason: Dyspepsia Stop: 11/17/18 16:38 Aspirin (Ecotrin Ectab) 81 mg PO DAILY ELIAS Stop: 11/18/18 08:59 Last Admin: 10/19/18 08:06 Dose: 81 mg Documented by: Gentamicin Sulfate (Gentamicin Sulfate 0.3%) 1 drops OPB QID ELIAS Stop: 10/28/18 16:59 Last Admin: 10/19/18 08:07 Dose: 1 drops Documented by: Cefepime HCl 2,000 mg/ Syringe 20 mls @ 5.5 mls/min IV Q12H ELIAS; Protocol Stop: 10/26/18 00:00 Last Admin: 10/19/18 11:30 Dose: 5.5 mls/min Documented by: Sodium Chloride (Nss 1000ml) 1,000 mls @ 80 mls/hr IV .[id number] [facility] Stop: 11/17/18 17:19 Last Infusion: 10/18/18 20:46 Dose: 80 mls/hr Documented by: Doxycycline Hyclate 100 mg/ (Dextrose) 110 mls @ 50 mls/hr IV Q12 ELIAS; Protocol Stop: 10/26/18 11:14 Last Infusion: 10/19/18 13:42 Dose: Infused Documented by: Multivitamins/Minerals (Caltrate Plus) 1 tab PO DAILY ELIAS Stop: 11/18/18 08:59 Last Admin: 10/19/18 08:07 Dose: 1 tab Documented by: Ondansetron HCl (Zofran) 4 mg IV Q6H PRN PRN Reason: Nausea Stop: 11/17/18 16:38 Potassium Chloride (Klor-Con M10) 10 meq PO BID [facility] Stop: 11/17/18 20:59 Last Admin: 10/19/18 08:06 Dose: 10 meq Documented by: Valacyclovir HCl (Valtrex) 500 mg PO DAILY [facility] Stop: 11/18/18 08:59 Last Admin: 10/19/18 08:06 Dose: 500 mg Documented by: PG Care Time/CCT Total # of Minutes Spent Total Time Spent with Patient: Total time spent is greater than 50% in coordination of care (as documented) at patient's floor/unit and/or counseling patient: Resident Activity Tracking Resident Involvement: Resident Care Provided Care Provided: Adult Hospital Medicine (1) Pneumonia Laterality: bilateral Lung location: unspecified part of lung Pneumonia type: due to unspecified organism Qualified Code(s): J18.9 - Pneumonia, unspecified organism
[2018-10-19] MEDS ORDERED: POTASSIUM CHLORIDE 20 MEQ TABCR PO ONE (11:45)
[2018-10-19] MEDS ORDERED: POTASSIUM CHLORIDE 20 MEQ TABCR PO STA (14:52)
[2018-10-19] MEDS: POTASSIUM CHLORIDE / WTR 10 MEQ/100 ML PLCT IV SCH ×4 (19:31→22:25)
[2018-10-20 05:46] LABS: Basophils # (auto) 0.02 K/uL (0-0.2); Basophils % (auto) 0.5 %; Eosinophils # (auto) 0.33 K/uL (0-0.5); Eosinophils % (auto) 8.5 %; Hematocrit (blood only) 25.4 % (37-47); Hemoglobin 7.8 g/dL (12.0-16.0); Immature Granulocytes # (auto) 0.01 K/uL (0.00-0.02); Immature Granulocytes % (auto) 0.3 %; Lymphocytes # (auto) 0.44 K/uL (1.2-3.4); Lymphocytes % (auto) 11.3 %; Mean Corpuscular Hgb Conc 30.7 g/dL (32-36); Mean Corpuscular Volume 102.4 fL (80-100); Mean Platelet Volume 10.7 fL (7.4-10.4); Monocytes # (auto) 0.48 K/uL (0.11-0.59); Monocytes % (auto) 12.3 %; Neutrophils # (auto) 2.61 K/uL (1.4-6.5); Neutrophils % (auto) 67.1 %; Platelet Count 315 K/uL (130-400); RDW Coefficient of Variation 20.2 % (11.5-14.5); RDW Standard Deviation 74.9 fL (36.4-46.3); Red Blood Count 2.48 M/uL (4.2-5.4); White Blood Count 3.89 K/uL (4.8-10.8)
[2018-10-20 06:12] LABS: Albumin Level 1.9 gm/dl (3.4-5.0); BUN Creatinine Ratio 6.1 (10-20); Calcium 6.9 mg/dl (8.5-10.1); Creatinine Clr Calc Pharmacy 75.5 ml/min; Est GFR (African American) 100.8; Potassium 3.6 mmol/L (3.5-5.1)
[2018-10-20 06:25] LABS: Albumin Globulin Ratio 0.6 (0.9-2); Bilirubin,Total 1.5 mg/dl (0.2-1); Globulin 3.1 gm/dl (2.5-4.0); Phosphorus 0.7 mg/dl (2.5-4.9)
[2018-10-20 06:30] LABS: Anisocytosis Present; Dohle Bodies 1+
[2018-10-20] MEDS ORDERED: POTASSIUM PHOS 3 MMOL/1 ML INFUSION IV STA (06:43)
[2018-10-20] MEDS ORDERED: POTASSIUM PHOSPHATE 40 MMOL in SODIUM CHLORIDE 0.9% 1000ML 1,000 ML IV ONE (07:00)
[2018-10-20] MEDS: SODIUM CHLORIDE 0.9% 1000ML 1,000 ML IV SCH (07:07)
--- NOTE | 2018-10-20 07:50 | Family Medicine Progress Note ---
Date of Service October 20, 2018 Assessment & Plan (1) Pneumonia: 77yo female with a PMHx significant for multiple myeloma with pneumonia, currently being treated with cefepime and doxycycline. Electrolyte abnormalities/Hypophosphatemia/Hypokalemia -Hypokalemic- replaced with K-riders 10/19 -Hypophosphatemic: replaced with Potassium phosphate. -will continue to monitor levels -Likely due to MM medication sideeffects. -Fluids stopped 10/20 Pneumonia -Chest XR suggestive, also with pleural effusion on left -continue O2 supplementation for hypoxia -sputum culture not collected and pending -blood cultures: NGTD -Appreciate ID recs. Acute resp Failure with hypoxia -stable, still with need - cont supp O2 as needed. -will continue to monitor need Multiple Myeloma - currently on Velcade, Revlimid -Also on Xgeva -likely cause of pancytopenia, increased bili -will continue to monitor -oncology recs appreciated Acute conjunctivitis -cont Gentamycin drops DVT proph: SCDs FEN/GI: Regular Diet CODE STATUS: FULL CODE Dispo: Discharge pending symptomatic improvement. Supervising Physician Co-Signing Physician Notes Attending attestation I also saw the patient and confirmed pena portions of the history and exam. I am in agreement with the documented findings as noted in the resident documentation with any exceptions or additions as noted here. She is tired this morning and more fatigued; her breathing is about the same; no dyspnea at rest, she does pause when speaking, and he remains in 2 LPM oxygen. Lungs CTAB with mild decreased breath sounds at the bases. Bilateral pneumonia Continue cefepime and doxycycline. Multiple myeloma Holding medications 2/2 reported hypersensitivity Elevated INR Recheck in AM along with LFTs Hypokalemia/Hypophos Replete and recheck in AM Subjective Ms. Flores states that she is fatigued today with SOB. Denies MOCTEZUMA, chest pain, SOB, palpitations, N/V, diarrhea or constipation. Review of Systems Review of Systems: All systems reviewed & are unremarkable except as noted in HPI & below Physical Exam Physical Exam: General: Alert, oriented. HEENT: NC/AT, Eyes with ointment. Nasal cannula in nares. Chest: Nontender to palpation. CV: RRR, Normal s1, s2. No murmurs appreciated Resp: Breath sounds clear bilaterally. Abdomen: Soft, nontender, nondistended. No guarding. No organomegaly appreciated. Extremities: Improved lower extremity edema. Results & Data Vital Signs (Past 12 Hours) Vital Signs Temp Pulse Resp BP Pulse Ox 10/20/18 06:37 36.9 C 82 22 129/69 96 10/20/18 03:39 37.1 C 83 18 131/70 97 10/19/18 22:53 37.2 C 82 18 119/62 96 Laboratory Results Laboratory Results - last 24 hr 10/19/18 10/19/18 10/19/18 11:38 15:45 22:35 WBC RBC Hgb Hct MCV MCH MCHC RDW Std Deviation RDW Coeff of [place] Plt Count MPV Immature Gran % (Auto) Neut % (Auto) Lymph % (Auto) [place] % (Auto) Eos % (Auto) Baso % (Auto) Immature Gran # (Auto) Neut # (Auto) Lymph # (Auto) [place] # (Auto) Eos # (Auto) Baso # (Auto) Dohle Bodies Anisocytosis Sodium Potassium 2.7 L Chloride Carbon Dioxide Anion Gap BUN Creatinine Est Cr Clr Drug Dosing Est GFR ( Amer) Est GFR (Non-Af Amer) BUN/Creatinine Ratio Glucose Calcium Ionized Calcium Phosphorus Magnesium Total Bilirubin AST ALT Alkaline Phosphatase Total Protein Albumin Globulin Albumin/Globulin Ratio Stl C. diff Tox B Gene L.pneumophila IgM Ab Pending Urine Legionella Ag Pending Mycoplasma pneumon IgG Pending Mycoplasma pneumon IgM Pending 10/19/18 10/20/18 10/20/18 22:35 00:50 05:13 WBC 3.89 L RBC 2.48 L Hgb 7.8 L Hct 25.4 L MCV 102.4 H MCH 31.5 MCHC 30.7 L RDW Std Deviation 74.9 H RDW Coeff of Yanick 20.2 H Plt Count 315 MPV 10.7 H Immature Gran % (Auto) 0.3 Neut % (Auto) 67.1 Lymph % (Auto) 11.3 [place] % (Auto) 12.3 Eos % (Auto) 8.5 Baso % (Auto) 0.5 Immature Gran # (Auto) 0.01 Neut # (Auto) 2.61 Lymph # (Auto) 0.44 L [place] # (Auto) 0.48 Eos # (Auto) 0.33 Baso # (Auto) 0.02 Dohle Bodies 1+ Anisocytosis Present Sodium Potassium 3.8 D Chloride Carbon Dioxide Anion Gap BUN Creatinine Est Cr Clr Drug Dosing Est GFR ( Amer) Est GFR (Non-Af Amer) BUN/Creatinine Ratio Glucose Calcium Ionized Calcium Phosphorus Magnesium Total Bilirubin AST ALT Alkaline Phosphatase Total Protein Albumin Globulin Albumin/Globulin Ratio Stl C. diff Tox B Gene Negative Cdiff Gene L.pneumophila IgM Ab Urine Legionella Ag Mycoplasma pneumon IgG Mycoplasma pneumon IgM 10/20/18 10/20/18 05:13 07:11 WBC RBC Hgb Hct MCV MCH MCHC RDW Std Deviation RDW Coeff of [place] Plt Count MPV Immature Gran % (Auto) Neut % (Auto) Lymph % (Auto) [place] % (Auto) Eos % (Auto) Baso % (Auto) Immature Gran # (Auto) Neut # (Auto) Lymph # (Auto) [place] # (Auto) Eos # (Auto) Baso # (Auto) Dohle Bodies Anisocytosis Sodium 139 Potassium 3.6 Chloride 108 H Carbon Dioxide 24 Anion Gap 7.0 BUN 4 L Creatinine 0.62 Est Cr Clr Drug Dosing 75.5 Est GFR ( Amer) 100.8 Est GFR (Non-Af Amer) 87.0 BUN/Creatinine Ratio 6.1 L Glucose 64 L Calcium 6.9 L Ionized Calcium 0.96 L Phosphorus 0.7 L* Magnesium 2.0 Total Bilirubin 1.5 H AST 13 L ALT 13 Alkaline Phosphatase 75 Total Protein 5.0 L Albumin 1.9 L Globulin 3.1 Albumin/Globulin Ratio 0.6 L Stl C. diff Tox B Gene L.pneumophila IgM Ab Urine Legionella Ag Mycoplasma pneumon IgG Mycoplasma pneumon IgM Medications Administered Home Medications aspirin [Aspirin Low Dose] 81 mg PO DAILY 10/18/18 [History Confirmed 10/18/18] bortezomib [Velcade] 0 mg SUBCUT DIRECTED 10/18/18 [History Confirmed 10/18/18] calcium carbonate-vitamin D3 [Calcium 500 + D] 1 tab PO DAILY 10/18/18 [History Confirmed 10/18/18] denosumab [Xgeva] 0 mg SUBCUT MONTHLY 10/18/18 [History Confirmed 10/18/18] dexamethasone 40 mg PO DIRECTED 10/18/18 [History Confirmed 10/18/18] lenalidomide [Revlimid] 25 mg PO DIRECTED 10/18/18 [History Confirmed 10/18/18] valacyclovir 500 mg PO DAILY 10/18/18 [History Confirmed 10/18/18] Active Medications Acetaminophen (Tylenol) 650 mg PO Q4H PRN PRN Reason: Pain or Fever Stop: 11/17/18 16:38 Al Hydrox/Mg Hydrox/Simethicone (Maalox) 15 ml PO Q4H PRN PRN Reason: Dyspepsia Stop: 11/17/18 16:38 Aspirin (Ecotrin Ectab) 81 mg PO DAILY [facility] Stop: 11/18/18 08:59 Last Admin: 10/20/18 08:47 Dose: 81 mg Documented by: Gentamicin Sulfate (Gentamicin Sulfate 0.3%) 1 drops OPB QID [facility] Stop: 10/28/18 16:59 Last Admin: 10/19/18 20:41 Dose: 1 drops Documented by: Cefepime HCl 2,000 mg/ Syringe 20 mls @ 5.5 mls/min IV Q12H [facility]; Protocol Stop: 10/26/18 00:00 Last Admin: 10/19/18 23:45 Dose: 5.5 mls/min Documented by: Sodium Chloride (Nss 1000ml) 1,000 mls @ 80 mls/hr IV .[id number] [facility] Stop: 11/17/18 17:19 Last Admin: 10/20/18 07:07 Dose: Not Given Documented by: Doxycycline Hyclate 100 mg/ (Dextrose) 110 mls @ 50 mls/hr IV Q12 [facility]; Protocol Stop: 10/26/18 11:14 Last Admin: 10/20/18 08:47 Dose: 50 mls/hr Documented by: Potassium Phosphate 40 mmol/ (Sodium Chloride) 1,013.3333 mls @ 150 mls/hr IV ONE ONE Stop: 10/20/18 13:45 Last Admin: 10/20/18 07:35 Dose: 150 mls/hr Documented by: Multivitamins/Minerals (Caltrate Plus) 1 tab PO DAILY [facility] Stop: 11/18/18 08:59 Last Admin: 10/20/18 08:47 Dose: 1 tab Documented by: Ondansetron HCl (Zofran) 4 mg IV Q6H PRN PRN Reason: Nausea Stop: 11/17/18 16:38 Potassium Chloride (Klor-Con M10) 10 meq PO BID [facility] Stop: 11/17/18 20:59 Last Admin: 10/20/18 08:47 Dose: 10 meq Documented by: Valacyclovir HCl (Valtrex) 500 mg PO DAILY [facility] Stop: 11/18/18 08:59 Last Admin: 10/20/18 08:47 Dose: 500 mg Documented by: PG Care Time/CCT Total # of Minutes Spent Total Time Spent with Patient: Total time spent is greater than 50% in coordination of care (as documented) at patient's floor/unit and/or counseling patient: Resident Activity Tracking Resident Involvement: Resident Care Provided Care Provided: Adult Hospital Medicine (1) Pneumonia Laterality: bilateral Lung location: unspecified part of lung Pneumonia type: due to unspecified organism Qualified Code(s): J18.9 - Pneumonia, unspecified organism
[2018-10-20] MEDS: DOXYCYCLINE HYCLATE 100 MG in DEXTROSE 5% 100 ML IV SCH ×2 (08:47→20:30)
[2018-10-20] MEDS: CALCIUM 600MG + VIT D 400 IU TAB PO SCH (08:47)
[2018-10-20] MEDS: ASPIRIN 81 MG ECTAB PO SCH (08:47)
[2018-10-20] MEDS: VALACYCLOVIR HCL 500 MG TABLET PO SCH (08:47)
[2018-10-20] MEDS: POTASSIUM CHLORIDE 10 MEQ TABCR PO SCH ×2 (08:47→20:31)
[2018-10-20] MEDS: GENTAMICIN SULFATE 0.3% OP SOLN 5 ML BTL OPB SCH ×4 (09:10→20:30)
[2018-10-20 12:57] LABS: Potassium 3.8 mmol/L (3.5-5.1)
[2018-10-20 13:16] LABS: Phosphorus 2.6 mg/dl (2.5-4.9)
[2018-10-20] MEDS ORDERED: CALCIUM GLUCONATE 10% 10 ML VIAL IV STA (13:25)
[2018-10-20] MEDS ORDERED: CALCIUM GLUCONATE 10% 1,000 MG in SODIUM CHLORIDE 0.9% 50 ML IV STA (13:29)
[2018-10-20] MEDS: CEFEPIME 2,000 MG in SYRINGE 7.5 ML IV SCH ×2 (15:18→23:16)
--- NOTE | 2018-10-20 15:56 | Oncology Consultation ---
Date of Consultation October 20, 2018 Assessment & Plan (1) Multiple myeloma: Patient with a history of multiple myeloma currently on Revlimid, Velcade and Decadron with excellent response. She is also receiving Xgeva for bone disease. She has a good response with almost normalization of her i mmunoglobulin level. Present on Admission?: Yes (2) Pneumonia: Patient was admitted with nonproductive cough along with fever and weakness and edema. She has evidence of bilateral pneumonia on chest x-ray and is mildly hypoxic on room air at 87%. Lactic acid is 1.7 she was also seen by the Infectious Disease doctor and currently she is on antibiotic combination including cefepime and doxycycline. Clinically she is feeling better with improvement in her shortness of breath. Further management as per primary team and Infectious Disease physician. Because of the acute infection will hold the chemotherapy for now. She has appointment to see Dr. Dobson on 10/30/2018. Present on Admission?: Yes History of Present Illness Reason for Consultation: Patient with history of multiple myeloma currently on treatment including Velcade, Revlimid and Decadron was admitted with : Nonproductive cough, fever, shortness of breath, swelling lower extrimity 77-year-old female being treated for multiple myeloma with Velcade and Xgeva, and Revlimid. She has developed a nonproductive cough along with fever and weakness and edema. She has evidence of bilateral pneumonia on chest x-ray and is mildly hypoxic on room air at 87%. Lactic acid is 1.7. She is admitted for further evaluation and treatment Multiple myeloma, IgG lambda -Bone marrow examination shows plasma-cell 36% (04/17/2008) -revised ISS staging--> stage I. - FISH--> negative for 1, 5, 9, 13, 14 (IgH), 15, and 17 (TP53) probe sets -Has lytic lesions in the L2 vertebral body, sacrum and left acetabulum. Started following chemotherapy treatment in mid-May 2018. -Velcade 1.3 mg/m2 every weekly -Revlimid at 25 mg once a day for 2 weeks followed by 1 week off -Decadron 40 mg once a week in the morning with food. She has tolerated treatment quite well with the gradual reduction of the M spike and free done light chain noted. She is on valacyclovir prophylaxis and baby aspirin prophylaxis, no new thrombotic complications, no new infectious complications she will continue that. She is on Xgeva every monthly, no new dental problem, will continue Xgeva every monthly. Chest x-ray showed bilateral pneumonia. She was also seen Dr. Turpin from the infectious disease and currently on antibiotics including combination of a cefepime and doxycycline. Clinically she is feeling better but still has some shortness of breath. She also has decreased edema of the lower extremity. Attending Physician: Denis Villalobos DO Allergies Allergy/AdvReac Type Severity Reaction Status Date / Time iodine Allergy Mild SPOTS Unverified 06/06/09 03:24 BEHIND EARS,HEAVINESS IN LEGS AND ARMS X'S 24 HOURS No Known Drug Allergies Allergy Unknown Unverified 10/18/18 12:40 Home Medications Home Medications Medication Instructions Recorded Confirmed Type aspirin [Aspirin Low Dose] 81 mg PO DAILY 10/18/18 10/18/18 History bortezomib [Velcade] 0 mg SUBCUT DIRECTED 10/18/18 10/18/18 History calcium carbonate-vitamin D3 1 tab PO DAILY 10/18/18 10/18/18 History [Calcium 500 + D] denosumab [Xgeva] 0 mg SUBCUT MONTHLY 10/18/18 10/18/18 History dexamethasone 40 mg PO DIRECTED 10/18/18 10/18/18 History lenalidomide [Revlimid] 25 mg PO DIRECTED 10/18/18 10/18/18 History valacyclovir 500 mg PO DAILY 10/18/18 10/18/18 History Patient History Medical History Acute conjunctivitis of both eyes (Acute) Hypokalemia (Acute) Cholestatic jaundice (Acute) Hypersensitivity reaction (Acute) Immunocompromised patient (Acute) Acute respiratory failure with hypoxia (Acute) Pneumonia (Acute) Asthma Multiple myeloma Social History Preferred Language: Macedonian Communication Ability: Effective Beliefs That Will Affect Care: None Current Living Situation: Spouse Other Information That Helps Us Care for You: No Feels Safe at Home: Yes Safety Concerns: Feels Safe At This Time Smoking Status: Former smoker Hx Alcohol Use: No Hx Substance Use: No Review of Systems Review of Systems: Review of Systems: Constitutional: No fever, chills, weakness ENT-no blurred vision, no double vision, no epistaxis, no sore throat Respiratory-nonproductive cough with shortness of breath Cardiac-no palpitations, no chest pain, no syncope GI-persistent nausea vomiting and diarrhea -no urinary retention, no urinary incontinence, no dysuria, no hematuria Musculoskeletal-no joint pain, no muscle tenderness. Gradual onset of edema Skin-no bruising, no rashes, no pruritus Neuro-worsening generalized weakness, no focal area of weakness, muscle power is 5/5 all extremities Psych-no depression, no anxiety Physical Exam Physical Exam: General-alert and oriented x3. Complaining of generalized weakness HEENT-head atraumatic and normocephalic, Sclera mildly icteric Neck-no lymphadenopathy or thyromegaly, trachea midline Chest-faint coarse bilateral inspiratory rales. No wheezing. No dullness to percussion Cardiac-regular rate and rhythm, normal S1 and S2, no murmurs Abdomen-normal bowel sounds, nontender, no hepatosplenomegaly Extremities-no cyanosis, clubbing. 1+ pitting edema bilateral lower extremities Neuro-cranial nerves II through XII intact, motor and sensory function within normal limits, strength symmetrical with generalized weakness, no focal deficits Psych-normal affect, normal mood Results & Data Vital Signs (Past 12 Hours) Vital Signs Temp Pulse Resp BP Pulse Ox 10/20/18 15:42 37.7 C H 86 16 128/66 94 10/20/18 11:42 96 10/20/18 06:37 36.9 C 82 22 129/69 96 (1) Pneumonia Laterality: bilateral Lung location: unspecified part of lung Pneumonia type: due to unspecified organism Qualified Code(s): J18.9 - Pneumonia, unspecified organism
--- NOTE | 2018-10-20 21:56 | Infectious Disease Progress Nt ---
Date of Service October 20, 2018 Assessment & Plan (1) Pneumonia: 77-year-old female with metastatic myeloma on chemotherapy, now with evidence of bilateral pneumonia with elevated procalcitonin levels. Agree with need for broad-spectrum antibiotics, would add coverage for atypical pathogens s uch as Legionella given recent travel. Vancomycin will be discontinued as MRSA screen is negative. Further serologies and urine studies ordered. Will follow. (2) Immunocompromised patient: Subjective fatigued today with SOB. Denies MOCTEZUMA, chest pain, SOB, palpitations, N/V, diarrhea or constipation. Remains afebrile. Review of Systems Review of Systems: All systems reviewed & are unremarkable except as noted in HPI & below Physical Exam Constitutional: WD/WN, vitals as above comfortable; no acute distress Eyes: no eyelid abnormality and no conjunctival abnormality ENMT: external ear and nose normal, oropharynx normal Neck: trachea midline, no thyromegaly neck nontender Respiratory: normal respiratory effort, lungs clear to auscultation normal percussion; does not use accessory muscles Cardiovascular: Rate/Rhythm: regular rate and regular rhythm Heart Sounds: normal S1 and normal S2; no gallop, no murmur and no cardiac rub Vessels: normal peripheral pulses; no JVD Gastrointestinal (Abdomen): normal bowel sounds, soft, nontender, no hepatosplenomegaly Musculoskeletal: no cyanosis or clubbing, extremities motor strength 5/5 Spine: thoracic spine normal to inspection and lumbar spine normal to inspection; no cervical spinal tenderness Skin: no rashes, warm and dry normal turgor; no lesions Neurologic: patellar DTR's 2+ bilat, sensation intact no focal motor deficits Psychiatric: A+Ox3, euthymic affect Orientation: cooperative Lymphatic: no cervical or axillary lymphadenopathy no inguinal lymphadenopathy Results & Data Vital Signs (Past 12 Hours) Vital Signs Temp Pulse Resp BP Pulse Ox 10/20/18 19:11 37.2 C 85 18 133/69 95 10/20/18 15:42 37.7 C H 86 16 128/66 94 10/20/18 11:42 96 Diagnostic Findings Short CBC 10/20/18 Range/Units 05:13 WBC 3.89 L (4.8-10.8) K/uL Hgb 7.8 L (12.0-16.0) g/dL Hct 25.4 L (37-47) % Plt Count 315 (130-400) K/uL BMP 10/20/18 10/20/18 10/20/18 00:50 05:13 12:15 Sodium 139 Potassium 3.8 D 3.6 3.8 Chloride 108 H Carbon Dioxide 24 BUN 4 L Creatinine 0.62 Glucose 64 L Calcium 6.9 L Microbiology 10/19/18 22:35 Stool Shiga Toxin Test - Preliminary 10/19/18 22:35 Stool Stool Culture - Preliminary No Salmonella isolated to date, No Shigella isolated to date, No Campylobacter jejuni isolated to date. 10/18/18 11:37 Blood Aerobic Blood Culture - Preliminary No growth in Aerobic bottle after 48 hours. 10/18/18 11:37 Blood Anaerobic Blood Culture - Preliminary No growth in Anaerobic bottle after 48 hours. 10/18/18 11:37 Blood Aerobic Blood Culture - Preliminary No growth in Aerobic bottle after 48 hours. 10/18/18 11:37 Blood Anaerobic Blood Culture - Preliminary No growth in Anaerobic bottle after 48 hours. Liver Function 10/20/18 Range/Units 05:13 Total Bilirubin 1.5 H (0.2-1) mg/dl AST 13 L (15-37) U/L ALT 13 (12-78) U/L Alkaline Phosphatase 75 (45-117) U/L Albumin 1.9 L (3.4-5.0) gm/dl (1) Pneumonia Laterality: bilateral Lung location: unspecified part of lung Pneumonia type: due to unspecified organism Qualified Code(s): J18.9 - Pneumonia, unspecified organism
[2018-10-21 06:02] LABS: Basophils # (auto) 0.02 K/uL (0-0.2); Basophils % (auto) 0.4 %; Eosinophils # (auto) 0.32 K/uL (0-0.5); Eosinophils % (auto) 6.7 %; Hematocrit (blood only) 23.5 % (37-47); Hemoglobin 7.9 g/dL (12.0-16.0); Immature Granulocytes # (auto) 0.02 K/uL (0.00-0.02); Immature Granulocytes % (auto) 0.4 %; Lymphocytes # (auto) 0.62 K/uL (1.2-3.4); Lymphocytes % (auto) 13.1 %; Mean Corpuscular Hgb Conc 33.6 g/dL (32-36); Mean Corpuscular Volume 102.6 fL (80-100); Monocytes # (auto) 0.46 K/uL (0.11-0.59); Monocytes % (auto) 9.7 %; Neutrophils # (auto) 3.31 K/uL (1.4-6.5); Neutrophils % (auto) 69.7 %; Platelet Count 305 K/uL (130-400); RDW Coefficient of Variation 20.3 % (11.5-14.5); RDW Standard Deviation 76.2 fL (36.4-46.3); Red Blood Count 2.29 M/uL (4.2-5.4); White Blood Count 4.75 K/uL (4.8-10.8)
[2018-10-21 06:34] LABS: Anisocytosis Present; Dohle Bodies 1+; Giant Platelets 1+; Toxic Granulation Occasional
[2018-10-21 06:42] LABS: Albumin Level 1.8 gm/dl (3.4-5.0); BUN Creatinine Ratio 6.3 (10-20); Calcium 6.8 mg/dl (8.5-10.1); Creatinine Clr Calc Pharmacy 89.7 ml/min; Est GFR (African American) 106.1; Est GFR (Non-African American) 91.6; Magnesium 1.8 mg/dl (1.8-2.4); Potassium 3.3 mmol/L (3.5-5.1)
[2018-10-21 06:47] LABS: INR 1.4 (0.9-1.1); Prothrombin Time 14.4 Seconds (9.0-12.0)
[2018-10-21 06:55] LABS: Albumin Globulin Ratio 0.6 (0.9-2); Bilirubin,Total 1.1 mg/dl (0.2-1); Globulin 3.1 gm/dl (2.5-4.0); Phosphorus 1.5 mg/dl (2.5-4.9); Total Protein 4.9 gm/dl (6.4-8.2)
[2018-10-21] MEDS ORDERED: POTASSIUM PHOS 3 MMOL/1 ML INFUSION IV ONE ×2 (07:45→18:30)
[2018-10-21] MEDS ORDERED: CALCIUM GLUCONATE 10% 2,000 MG in SODIUM CHLORIDE 0.9% 50 ML IV ONE (08:15)
[2018-10-21] MEDS: MAGNESIUM OXIDE 400 MG TAB PO SCH (08:18)
[2018-10-21] MEDS: ASPIRIN 81 MG ECTAB PO SCH (08:18)
[2018-10-21] MEDS: VALACYCLOVIR HCL 500 MG TABLET PO SCH (08:18)
[2018-10-21] MEDS: POTASSIUM CHLORIDE 20 MEQ TABCR PO SCH ×3 (08:18→22:33)
[2018-10-21] MEDS: GENTAMICIN SULFATE 0.3% OP SOLN 5 ML BTL OPB SCH ×4 (08:19→19:20)
[2018-10-21] MEDS: CALCIUM 600MG + VIT D 400 IU TAB PO SCH (08:19)
[2018-10-21] MEDS: DOXYCYCLINE HYCLATE 100 MG in DEXTROSE 5% 100 ML IV SCH (08:34)
[2018-10-21] MEDS ORDERED: POTASSIUM PHOSPHATE 21 MMOL in SODIUM CHLORIDE 0.9% 500 ML IV ONE ×2 (09:00→19:00)
[2018-10-21] MEDS ORDERED: VANCOMYCIN TROUGH ONE (09:30)
[2018-10-21] MEDS: CEFEPIME 2,000 MG in SYRINGE 7.5 ML IV SCH ×2 (15:20→21:44)
--- NOTE | 2018-10-21 16:50 | Family Medicine Progress Note ---
Date of Service October 21, 2018 Assessment & Plan (1) Pneumonia: Admitted 19Jun: 77F here with acute dyspnea, tachypnea, hypoxia found to have bilateral pneumonia in immunocompromised patient. Being treated for multiple myeloma with Velcade and Xgeva, and Revlimid and decadron. PMH also significant for mild asthma since childhood, and anemia of chronic disease. Hypoxia, tachypnea, dyspnea 2/2 CAP in immunocompromised pt -ID consulted, appreciate recs: -empirically treated with Vanc and cefepime -- pancultured -- MRSA negative, therefore Vanc DC'd -- 20Jun add doxy to cover for legionella given recent travel. -blood cx NGTD x 2 (x48h) -may require O2 at home, possibly temporarily, 2 step on day of discharge Hypocalcemia/hypophosphatemia/hypokalemia -known reaction 2/2 Xgeva therapy (denosumab) which inhibits osteoclast formation and prevents bone turnover -following ionized ca/PO4/K and mag -replete as necessary (Ca gluconate IV, potassium phos IV, klor con PO, mag ox PO -will need ongoing follow up in outpatient setting Anemia of chronic disease in setting of MM -follow, no acute issues Conjunctivitis -Gentamycin OP FEN/GI: regular diet. No fluids indicated at this time with the exception of IV repletion as above. DVT ppx: ASA 81 daily, SCDs CODE STATUS: FULL DISPO: to home on discharge. Tele while repleting. Case mgmt consult ordered. (2) Acute conjunctivitis of both eyes: (3) Hypokalemia: (4) Multiple myeloma: (5) Immunocompromised patient: (6) Acute respiratory failure with hypoxia: (7) Asthma: (8) Hypophosphatemia: (9) Hypocalcemia: (10) Anemia: Supervising Physician Co-Signing Physician Notes I also saw the patient and confirmed pena portions of the history and exam. I am in agreement with the documented findings as noted in the resident documentation with any exceptions or additions as noted here. She feels better today; she reports sleeping better last night. She remains on 1-2 lpm via NC, although she denies dyspnea. She had PT yesterday - felt good but tired easily. Bilateral pneumonia Continue cefepime and doxycycline. Multiple myeloma Holding medications 2/2 reported hypersensitivity Elevated INR Improving; monitor Hypokalemia/Hypophos Replete and recheck in AM Subjective seen and examined at the bedside today. nasal cannula in place, running 1L. subjectively pt states that she feels better on her feet, no longer so "wobbly" on her feet, is able to walk without a walker. some cough left but says she is breathing better overall. per nursing did well with PT, no acute events overnight. Review of Systems Review of Systems: All systems reviewed & are unremarkable except as noted in HPI & below Physical Exam Physical Exam: Vitals noted and within normal limits with the exception of hypoxia. GENERAL: Awake, alert to person, place, and time, nontoxic-appearing, in no distress HENT: Normocephalic, atraumatic. Nasal cannula in place. Mucus membranes appear moist. NECK: Supple. Full range of motion. No JVD RESPIRATORY: Slightly diminished bilaterally but no adventitious sounds. Normal work of breathing. CARDIAC: Regular rate, normal rhythm. Extremities warm and well perfused, 1-2/6 systolic murmur. LOWER EXTREMITIES: Inspection of calves reveal equal size bilaterally. They are non-tender. trace edema. No discoloration. NEURO: No gross focal motor deficits noted. CN II-XII grossly in tact. SKIN: Rash not present. Significant lesions not present. PSYCH: Appropriate mood and affect. Cooperative. Exam as done by Le Nielsen MD, Space Physicist. Results & Data Vital Signs (Past 12 Hours) Vital Signs Temp Pulse Resp BP BP Pulse Ox 10/21/18 15:00 37.2 C 88 18 132/66 95 10/21/18 11:40 37 C 86 17 136/62 95 10/21/18 07:03 36.8 C 82 20 121/60 95 Laboratory Results 10/21/18 10/21/18 10/21/18 Range/Units 17:41 05:12 05:12 WBC (4.8-10.8) K/uL RBC (4.2-5.4) M/uL Hgb (12.0-16.0) g/dL Hct (37-47) % MCV (80-100) fL MCH (25-34) pg MCHC (32-36) g/dL RDW Std Deviation (36.4-46.3) fL RDW Coeff of [place] (11.5-14.5) % Plt Count (130-400) K/uL MPV (7.4-10.4) fL Immature Gran % (Auto) % Neut % (Auto) % Lymph % (Auto) % [place] % (Auto) % Eos % (Auto) % Baso % (Auto) % Immature Gran # (Auto) (0.00-0.02) K/uL Neut # (Auto) (1.4-6.5) K/uL Lymph # (Auto) (1.2-3.4) K/uL [place] # (Auto) (0.11-0.59) K/uL Eos # (Auto) (0-0.5) K/uL Baso # (Auto) (0-0.2) K/uL Toxic Granulation Dohle Bodies Giant Platelets Anisocytosis PT 14.4 H (9.0-12.0) Seconds INR 1.4 H (0.9-1.1) Sodium 138 (136-145) mmol/L Potassium 3.5 (3.5-5.1) mmol/L Chloride 106 (98-107) mmol/L Carbon Dioxide 26 (21-32) mmol/L Anion Gap 6.0 (3-11) BUN 3 L (7-18) mg/dl Creatinine 0.57 L (0.6-1.2) mg/dl Est Cr Clr Drug Dosing 83.4 ml/min Est GFR ( Amer) 103.6 Est GFR (Non-Af Amer) 89.4 BUN/Creatinine Ratio 5.7 L (10-20) Glucose 90 (70-99) mg/dl Calcium 7.3 L (8.5-10.1) mg/dl Ionized Calcium 0.93 L (1.12-1.32) mmol/L Phosphorus 1.8 L (2.5-4.9) mg/dl Magnesium 1.8 (1.8-2.4) mg/dl Total Bilirubin (0.2-1) mg/dl AST (15-37) U/L ALT (12-78) U/L Alkaline Phosphatase (45-117) U/L Total Protein (6.4-8.2) gm/dl Albumin (3.4-5.0) gm/dl Globulin (2.5-4.0) gm/dl Albumin/Globulin Ratio (0.9-2) 06/22/19 06/22/19 Range/Units 05:12 05:12 WBC 4.75 L (4.8-10.8) K/uL RBC 2.29 L (4.2-5.4) M/uL Hgb 7.9 L (12.0-16.0) g/dL Hct 23.5 L (37-47) % MCV 102.6 H (80-100) fL MCH 34.5 H (25-34) pg MCHC 33.6 (32-36) g/dL RDW Std Deviation 76.2 H (36.4-46.3) fL RDW Coeff of [place] 20.3 H (11.5-14.5) % Plt Count 305 (130-400) K/uL MPV 10.0 (7.4-10.4) fL Immature Gran % (Auto) 0.4 % Neut % (Auto) 69.7 % Lymph % (Auto) 13.1 % [place] % (Auto) 9.7 % Eos % (Auto) 6.7 % Baso % (Auto) 0.4 % Immature Gran # (Auto) 0.02 (0.00-0.02) K/uL Neut # (Auto) 3.31 (1.4-6.5) K/uL Lymph # (Auto) 0.62 L (1.2-3.4) K/uL [place] # (Auto) 0.46 (0.11-0.59) K/uL Eos # (Auto) 0.32 (0-0.5) K/uL Baso # (Auto) 0.02 (0-0.2) K/uL Toxic Granulation Occasional Dohle Bodies 1+ Giant Platelets 1+ Anisocytosis Present PT (9.0-12.0) Seconds INR (0.9-1.1) Sodium 137 (136-145) mmol/L Potassium 3.3 L (3.5-5.1) mmol/L Chloride 106 (98-107) mmol/L Carbon Dioxide 22 (21-32) mmol/L Anion Gap 9.0 (3-11) BUN 3 L (7-18) mg/dl Creatinine 0.53 L (0.6-1.2) mg/dl Est Cr Clr Drug Dosing 89.7 ml/min Est GFR ( Amer) 106.1 Est GFR (Non-Af Amer) 91.6 BUN/Creatinine Ratio 6.3 L (10-20) Glucose 68 L (70-99) mg/dl Calcium 6.8 L (8.5-10.1) mg/dl Ionized Calcium (1.12-1.32) mmol/L Phosphorus 1.5 L* D (2.5-4.9) mg/dl Magnesium 1.8 (1.8-2.4) mg/dl Total Bilirubin 1.1 H (0.2-1) mg/dl AST 17 (15-37) U/L ALT 14 (12-78) U/L Alkaline Phosphatase 67 (45-117) U/L Total Protein 4.9 L (6.4-8.2) gm/dl Albumin 1.8 L (3.4-5.0) gm/dl Globulin 3.1 (2.5-4.0) gm/dl Albumin/Globulin Ratio 0.6 L (0.9-2) Medications Administered Current Inpatient Medications Acetaminophen (Tylenol) 650 mg PO Q4H PRN PRN Reason: Pain or Fever Stop: 11/17/18 16:38 Al Hydrox/Mg Hydrox/Simethicone (Maalox) 15 ml PO Q4H PRN PRN Reason: Dyspepsia Stop: 11/17/18 16:38 Amoxicillin/Clavulanate Potassium (Augmentin 875mg) 1 tab PO BIDM [facility] Stop: 10/25/18 07:59 Aspirin (Ecotrin Ectab) 81 mg PO DAILY [facility] Stop: 11/18/18 08:59 Last Admin: 10/21/18 08:18 Dose: 81 mg Documented by: Gentamicin Sulfate (Gentamicin Sulfate 0.3%) 1 drops OPB QID [facility] Stop: 10/28/18 16:59 Last Admin: 10/21/18 13:20 Dose: 1 drops Documented by: Potassium Phosphate 21 mmol/ (Sodium Chloride) 507 mls @ 88 mls/hr IV ONE ONE Stop: 10/22/18 00:45 Magnesium Oxide (Mag-Ox) 400 mg PO QAM [facility] Stop: 10/23/18 08:59 Last Admin: 10/21/18 08:18 Dose: 400 mg Documented by: Multivitamins/Minerals (Caltrate Plus) 1 tab PO DAILY [facility] Stop: 11/18/18 08:59 Last Admin: 10/21/18 08:19 Dose: 1 tab Documented by: Ondansetron HCl (Zofran) 4 mg IV Q6H PRN PRN Reason: Nausea Stop: 11/17/18 16:38 Potassium Chloride (Klor-Con M20) 20 meq PO BID [facility] Stop: 11/20/18 08:59 Last Admin: 10/21/18 08:18 Dose: 20 meq Documented by: Valacyclovir HCl (Valtrex) 500 mg PO DAILY [facility] Stop: 11/18/18 08:59 Last Admin: 10/21/18 08:18 Dose: 500 mg Documented by: PG Care Time/CCT Total # of Minutes Spent Total Time Spent with Patient: Total time spent is greater than 50% in coordination of care (as documented) at patient's floor/unit and/or counseling patient: Resident Activity Tracking Resident Involvement: Resident Care Provided Care Provided: Adult Hospital Medicine (1) Anemia Anemia type: unspecified type Qualified Code(s): D64.9 - Anemia, unspecified (2) Pneumonia Laterality: bilateral Lung location: unspecified part of lung Pneumonia type: due to unspecified organism Qualified Code(s): J18.9 - Pneumonia, unspecified organism
[2018-10-21 18:05] LABS: BUN Creatinine Ratio 5.7 (10-20); Calcium 7.3 mg/dl (8.5-10.1); Creatinine Clr Calc Pharmacy 83.4 ml/min; Est GFR (African American) 103.6; Est GFR (Non-African American) 89.4; Magnesium 1.8 mg/dl (1.8-2.4); Phosphorus 1.8 mg/dl (2.5-4.9); Potassium 3.5 mmol/L (3.5-5.1)
[2018-10-21] MEDS: DOXYCYCLINE HYCLATE 100 MG CAP PO SCH (21:45)
[2018-10-22 07:11] LABS: Calcium 7.4 mg/dl (8.5-10.1); Creatinine Clr Calc Pharmacy 103.3 ml/min; Est GFR (African American) 111.2; Phosphorus 1.7 mg/dl (2.5-4.9); Potassium 3.3 mmol/L (3.5-5.1)
[2018-10-22] MEDS ORDERED: AMOXICILLIN/CLAVULANATE 875 MG TAB PO SCH (08:00)
[2018-10-22] MEDS: DOXYCYCLINE HYCLATE 100 MG CAP PO SCH ×2 (08:24→21:06)
[2018-10-22] MEDS: POTASSIUM CHLORIDE 20 MEQ TABCR PO SCH (08:24)
[2018-10-22] MEDS: MAGNESIUM OXIDE 400 MG TAB PO SCH (08:24)
[2018-10-22] MEDS: VALACYCLOVIR HCL 500 MG TABLET PO SCH (08:24)
[2018-10-22] MEDS: CALCIUM 600MG + VIT D 400 IU TAB PO SCH ×2 (08:24→17:31)
[2018-10-22] MEDS: ASPIRIN 81 MG ECTAB PO SCH (08:25)
[2018-10-22] MEDS: GENTAMICIN SULFATE 0.3% OP SOLN 5 ML BTL OPB SCH ×4 (08:25→21:07)
[2018-10-22] MEDS ORDERED: ALBUT/IPRATROP 3MG/0.5MG NEB 3 ML VIAL NEB STA ×2 (08:28→12:13)
[2018-10-22] MEDS: CEFEPIME 2,000 MG in SYRINGE 7.5 ML IV SCH ×2 (11:36→21:05)
[2018-10-22] MEDS ORDERED: FUROSEMIDE 20 MG in SYRINGE 0 ML IV ONE (12:23)
--- NOTE | 2018-10-22 12:24 | XRay Report ---
XR chest 1V portable CLINICAL HISTORY: wheeze COMPARISON STUDY: 10/18/2018 FINDINGS: The heart is enlarged. There are progressive bilateral pulmonary airspace opacities right g reater than left. Diagnostic considerations include a multifocal pneumonia versus asymmetric pulmonar y edema. There are developing bilateral pleural effusions.[ IMPRESSION: 1. Bilateral subpulmonic pleural effusions 2. Progressive bilateral pulmonary airspace opacities. Diagnostic considerations include asymmetric p ulmonary edema versus a multifocal pneumonia. Clinical and radiographic follow-up is recommended Electronically signed by: Kalia Chappell M.D. 10/22/2018 12:23 PM
[2018-10-22] MEDS: ALBUT/IPRATROP 3MG/0.5MG NEB 3 ML VIAL NEB SCH ×2 (15:05→18:54)
--- NOTE | 2018-10-22 15:05 | Family Medicine Progress Note ---
Date of Service October 22, 2018 Assessment & Plan (1) Pneumonia: Admitted 19Jun: 77F here with acute dyspnea, tachypnea, hypoxia found to have bilateral pneumonia in immunocompromised patient. Being treated for multiple myeloma with Velcade and Xgeva, and Revlimid and decadron. PMH also significant for mild asthma since childhood, and anemia of chronic disease. Hypoxia, tachypnea, dyspnea 2/2 CAP in immunocompromised pt -ID consulted, appreciate recs: -empirically treated with Vanc and cefepime -- pancultured -- MRSA negative, therefore Vanc DC'd -- 20Jun add doxy to cover for legionella given recent travel. -blood cx NGTD x 2 (x48h) -may require O2 at home, possibly temporarily, 2 step on day of discharge -add duonebs scheduled -- pt refuses steroids. will likely benefit from albuterol scheduled on discharge for at least 5 days. New Pulmonary edema -on CXR 23Jun -2/2 fluid form of electrolyte repletions - will try to convert all to PO, avoid excessive fluids. -pt is lasix naive -20mg IV lasix x 1 with good effect Hypocalcemia/hypophosphatemia/hypokalemia -known reaction 2/2 Xgeva therapy (denosumab) which inhibits osteoclast formation and prevents bone turnover -following ionized ca/PO4/K and mag -replete as necessary (Ca gluconate IV, potassium phos IV, klor con PO, mag ox PO) -- switch as able to PO formulations as above. -will need ongoing follow up/repeat labs 2-3 days after discharge in outpatient setting Anemia of chronic disease in setting of MM -follow, no acute issues Conjunctivitis -Gentamycin OP FEN/GI: regular diet. No fluids indicated at this time with the exception of IV repletion as above. DVT ppx: ASA 81 daily, SCDs CODE STATUS: FULL DISPO: to home on discharge. Tele while repleting. Case mgmt consult ordered, may need O2 on DC pending 2 step. (2) Acute conjunctivitis of both eyes: (3) Hypokalemia: (4) Multiple myeloma: (5) Immunocompromised patient: (6) Acute respiratory failure with hypoxia: (7) Asthma: (8) Hypophosphatemia: (9) Hypocalcemia: (10) Anemia: Supervising Physician Co-Signing Physician Notes I also saw the patient and confirmed pena portions of the history and exam. I am in agreement with the documented findings as noted in the resident documentation with any exceptions or additions as noted here. The patient denies any significant complaints this morning but it is noticed that she has to limit her speech and pause at times to catch her breath. Upon examination, she actually sounds tight with diffuse expiratory wheezing, a marked contrast compared to her exam yesterday. A chest x-ray subsequently ordered after exam demonstrates progressive bilateral pulmonary airspace opacities which likely recommends pulmonary edema and/or progression of her pneumonia. With the clinical presentation suspect it is more pulmonary edema rather than progressive infection; there is also been development of bilateral pleural effusions. Pulmonary Edema Lasix; she is Lasix lisset Monitor I's and O's Chest x-ray in a.m. Bilateral pneumonia Continue cefepime and doxycycline. Multiple myeloma Holding medications 2/2 reported hypersensitivity Elevated INR Improving; monitor Hypokalemia/Hypophos Replete and recheck in AM Subjective increased work of breathing this morning. endorses worsening lower ext edema. otherwise feeling well, no increased cough, no new productive cough. still on 2L. Review of Systems Review of Systems: All systems reviewed & are unremarkable except as noted in HPI & below Physical Exam Physical Exam: Vitals noted and within normal limits with the exception of hypoxia. GENERAL: Awake, alert to person, place, and time, nontoxic-appearing, in no distress HENT: Normocephalic, atraumatic. Nasal cannula in place. Mucus membranes appear moist. NECK: Supple. Full range of motion. No JVD RESPIRATORY: +adventitious sounds bilaterally with wheezing. slightly increased work of breathing. CARDIAC: Regular rate, normal rhythm. Extremities warm and well perfused, 1-2/6 systolic murmur. LOWER EXTREMITIES: Inspection of calves reveal equal size bilaterally. They are non-tender. 1+ edema up to mid calf. No discoloration. NEURO: No gross focal motor deficits noted. CN II-XII grossly in tact. SKIN: Rash not present. Significant lesions not present. PSYCH: Appropriate mood and affect. Cooperative. Exam as done by Le Nielsen MD, Research Analyst. Results & Data Vital Signs (Past 12 Hours) Vital Signs Temp Pulse Pulse Resp BP BP Pulse Ox 10/22/18 11:44 36.9 C 86 18 109/56 L 93 10/22/18 08:39 86 16 95 10/22/18 07:30 37 C 82 17 122/64 95 10/22/18 03:44 37.0 C 87 20 118/66 94 Laboratory Results 10/22/18 10/22/18 10/21/18 Range/Units 06: 06:19 17:41 Sodium 140 138 (136-145) mmol/L Potassium 3.3 L 3.5 (3.5-5.1) mmol/L Chloride 106 106 (98-107) mmol/L Carbon Dioxide 26 26 (21-32) mmol/L Anion Gap 8.0 6.0 (3-11) BUN 2 L 3 L (7-18) mg/dl Creatinine 0.46 L 0.57 L (0.6-1.2) mg/dl Est Cr Clr Drug Dosing 103.3 83.4 ml/min Est GFR ( Amer) 111.2 103.6 Est GFR (Non-Af Amer) 96.0 89.4 BUN/Creatinine Ratio 5.0 L 5.7 L (10-20) Glucose 78 90 (70-99) mg/dl Calcium 7.4 L 7.3 L (8.5-10.1) mg/dl Ionized Calcium 0.92 L (1.12-1.32) mmol/L Phosphorus 1.7 L 1.8 L (2.5-4.9) mg/dl Magnesium 2.0 1.8 (1.8-2.4) mg/dl Medications Administered Current Inpatient Medications Acetaminophen (Tylenol) 650 mg PO Q4H PRN PRN Reason: Pain or Fever Stop: 11/17/18 16:38 Al Hydrox/Mg Hydrox/Simethicone (Maalox) 15 ml PO Q4H PRN PRN Reason: Dyspepsia Stop: 11/17/18 16:38 Albuterol (Duoneb) [address] [facility] Stop: 11/21/18 15:59 Aspirin (Ecotrin Ectab) [address] [facility] Stop: 11/18/18 08:59 Last Admin: 10/22/18 08:25 Dose: 81 mg Documented by: Doxycycline Hyclate (Vibramycin) [address] [facility] Stop: 10/26/18 11:14 Last Admin: 10/22/18 08:24 Dose: 100 mg Documented by: Gentamicin Sulfate (Gentamicin Sulfate 0.3%) [address] [facility] Stop: 10/28/18 16:59 Last Admin: 10/22/18 13:47 Dose: 1 drops Documented by: Cefepime HCl 2,000 mg/ Syringe 20 mls @ 5.5 mls/min IV BID [facility]; Protocol Stop: 10/25/18 16:38 Last Admin: 10/22/18 11:36 Dose: 5.5 mls/min Documented by: Magnesium Oxide (Mag-Ox) [address] [facility] Stop: 10/23/18 08:59 Last Admin: 10/22/18 08:24 Dose: 400 mg Documented by: Multivitamins/Minerals (Caltrate Plus) [address] [facility] Stop: 11/18/18 08:59 Last Admin: 10/22/18 08:24 Dose: 1 tab Documented by: Ondansetron HCl (Zofran) 4 mg IV Q6H PRN PRN Reason: Nausea Stop: 11/17/18 16:38 Potassium Chloride (Klor-Con M20) [address] [facility] Stop: 11/20/18 08:59 Last Admin: 10/22/18 08:24 Dose: 20 meq Documented by: Valacyclovir HCl (Valtrex) [address] [facility] Stop: 11/18/18 08:59 Last Admin: 10/22/18 08:24 Dose: 500 mg Documented by: PG Care Time/CCT Total # of Minutes Spent Total Time Spent with Patient: Total time spent is greater than 50% in coordination of care (as documented) at patient's floor/unit and/or counseling patient: Resident Activity Tracking Resident Involvement: Resident Care Provided Care Provided: Adult Hospital Medicine (1) Anemia Anemia type: unspecified type Qualified Code(s): D64.9 - Anemia, unspecified (2) Pneumonia Laterality: bilateral Lung location: unspecified part of lung Pneumonia type: due to unspecified organism Qualified Code(s): J18.9 - Pneumonia, unspecified organism
[2018-10-22] MEDS ORDERED: Nursing to Pharmacy Communication ONE (19:37)
[2018-10-22] MEDS: POT PHOSPHATE MONOBASIC W/ SOD TAB PO SCH (21:06)
[2018-10-22] MEDS: POTASSIUM CHLORIDE 20 MEQ/15 ML UDC PO SCH (21:13)
[2018-10-23] MEDS: CALCIUM 600MG + VIT D 400 IU TAB PO SCH (06:38)
[2018-10-23 06:51] LABS: BUN Creatinine Ratio 3.9 (10-20); Calcium 7.4 mg/dl (8.5-10.1); Creatinine Clr Calc Pharmacy 91.8 ml/min; Est GFR (African American) 107.5; Est GFR (Non-African American) 92.8; Magnesium 1.9 mg/dl (1.8-2.4); Potassium 3.2 mmol/L (3.5-5.1)
[2018-10-23 06:52] LABS: Phosphorus 1.6 mg/dl (2.5-4.9)
[2018-10-23] MEDS: ALBUT/IPRATROP 3MG/0.5MG NEB 3 ML VIAL NEB SCH ×2 (07:04→11:25)
[2018-10-23] MEDS ORDERED: FUROSEMIDE 20 MG TAB PO ONE (08:07)
[2018-10-23] MEDS ORDERED: POTASSIUM CHLORIDE 20 MEQ TABCR PO STA (08:07)
[2018-10-23] MEDS ORDERED: CALCIUM GLUCONATE 10% 10 ML VIAL IV STA (08:12)
[2018-10-23] MEDS ORDERED: CALCIUM GLUCONATE 10% 1,000 MG in SODIUM CHLORIDE 0.9% 50 ML IV STA (08:19)
[2018-10-23] MEDS: CEFEPIME 2,000 MG in SYRINGE 7.5 ML IV SCH (08:34)
[2018-10-23] MEDS: GENTAMICIN SULFATE 0.3% OP SOLN 5 ML BTL OPB SCH (08:36)
[2018-10-23] MEDS: POTASSIUM CHLORIDE 20 MEQ/15 ML UDC PO SCH (08:36)
[2018-10-23] MEDS: ASPIRIN 81 MG ECTAB PO SCH (08:37)
[2018-10-23] MEDS: POT PHOSPHATE MONOBASIC W/ SOD TAB PO SCH (08:37)
[2018-10-23] MEDS: VALACYCLOVIR HCL 500 MG TABLET PO SCH (08:37)
[2018-10-23] MEDS: DOXYCYCLINE HYCLATE 100 MG CAP PO SCH (08:38)
--- NOTE | 2018-10-23 08:39 | Discharge Summary ---
Date of Service October 23, 2018 Admission HPI Per Admitting Provider 77-year-old female being treated for multiple myeloma with Velcade and Xgeva, and Revlimid. She has developed a nonproductive cough along with fever and weakness and edema. She has evidence of bilateral pneumonia on chest x-ray and is mildly hypoxic on room air at 87%. Lactic acid is 1.7. She is also hypokalemic. Her total bilirubin is slightly elevated and she may have cholestatic jaundice. Liver functions are normal except for mildly elevated LDH. Gallbladder ultrasound reveals hepatic steatosis but no obstruction. This will be followed. Infectious disease consultation and oncology consultation will be requested. She will be given cefepime and vancomycin for now. She has been pancultured. She is admitted for further evaluation and treatment. Admission Exam Per Admitting Provider General-alert and oriented x3. Complaining of generalized weakness HEENT-head atraumatic and normocephalic, TMs intact bilaterally, pupils equal and reactive to light, extraocular muscles intact. Sclera mildly icteric Neck-no lymphadenopathy or thyromegaly, trachea midline Chest-faint coarse bilateral inspiratory rales. No wheezing. No dullness to percussion Cardiac-regular rate and rhythm, normal S1 and S2, no murmurs Abdomen-normal bowel sounds, nontender, no hepatosplenomegaly Extremities-no cyanosis, clubbing. 1+ pitting edema bilateral lower extremities Neuro-cranial nerves II through XII intact, motor and sensory function within normal limits, strength symmetrical with generalized weakness, no focal deficits Psych-normal affect, normal mood Principal Diagnosis Pneumonia Discharge Exam General: Alert, oriented. On room air breathing comfortably. HEENT: NC/AT. Chest: Nontender to palpation. CV: RRR, Normal s1, s2. No murmurs appreciated Resp: Breath sounds with some fine crackles at bases. Abdomen: Soft, nontender, nondistended. No guarding. No organomegaly appreciated. Extremities: Improved lower extremity edema. Discharge Data Allergies Allergy/AdvReac Type Severity Reaction Status Date / Time iodine Allergy Mild SPOTS Unverified 06/06/09 03:24 BEHIND EARS,HEAVINESS IN LEGS AND ARMS X'S 24 HOURS clams Allergy Verified 10/21/18 12:29 No Known Drug Allergies Allergy Unknown Unverified 10/18/18 12:40 Consultations 10/18/18 12:23 ED Decision to Admit Stat 10/18/18 16:39 Consult Hematology Routine Consult Infectious Diseases Routine 10/21/18 21:07 Consult Case Management - Discharge Planning Routine Ordered Studies 10/18/18 12:30 US gallbladder Stat Hospital Course (1) Pneumonia: 77yo female with a PMHx significant for multiple myeloma with pneumonia, who was admitted on October 18 and discharged on October 23 2018. She was treated with cefepime and doxycyline to provide coverage for a possible HAP, given her frequent trips due to cancer followup for a total of 14 days. She was discharged with 12 days worth of Levofloxacin (unfortunately it was an unavoidable choice for PO pseudomonal coverage) and doxycycline for Legionella coverage after a positive travel history. Advised of photosensitivity sideeeffects of doxycyline and the tendinitis and aortic aneurysm effect of Levofloxacin. Electrolyte abnormalities/Hypophosphatemia/Hypokalemia -Hypokalemic- replaced with K-riders 10/19. PO Potassium Chloride otherwise -Hypophosphatemic: replaced with Potassium phosphate. -Likely due to multiple myeloma medication sideeffects of Xgeva. -Pt discharged with PO replacements for potassium, phosphate and Calcium (Vit D supplements). -Close PCP followup STRONGLY recommended. Pneumonia -Chest XR suggestive, also with pleural effusion on left -treated with cefepime and doxycycline while hospitalized. -discharged with 12 days worth of Levofloxacin (unfortunately it was an unavoidable choice for PO pseudomonal coverage) and doxycycline for Legionella coverage after a positive travel history. -continued O2 supplementation for hypoxia. -On discharge pt requiring O2 with exertion, not at rest. Pt discharged with home oxygen. -blood cultures: NGTD -Seen by infectious disease while hospitalized. -Close PCP followup strongly recommended. Acute resp Failure with hypoxia -as above for O2 requirement. Multiple Myeloma - currently on Velcade, Revlimid -Also on Xgeva -Oncology followed while hospitalized and pt has upcoming appointment. -Close PCP followup strongly recommended. Acute conjunctivitis -cont Gentamycin drops. Total Time Total Time Spent Total Time Spent (In Minutes): >30 Discharge Plan Discharge Items Patient Disposition: Home - Self-Care Reason For Visit: BILATERAL PNEUMONIA Discharge Diagnosis: Pneumonia Discharge Goals: Decrease discomfort and Improve function Activity: Per 'Additional Instructions' section Non-emergency contact: Primary Care Provider Call non-emergency contact if: you have any medication questions and you have a fever Follow-up/Referrals: Andres Maria MD [Primary Care Provider] - 10/30/18 9:30 am (follow up appointment at your primary care office with the nurse practitioner, Yeimi Can) Diet: Regular Addtl Provider Instructions: You are being discharged with the diagnosis of pneumonia in the setting of multiple myeloma. Pneumonia -You were treated with the antibiotics Cefepime and doxycycline while hospitalized. You also received Vancomycin for a short time. -You are being discharged with the oral medications doxycycline for 12 more days, and Levaquin for 12 more days. Please take them as directed. -You are also going home with oxygen. Please continue to use as needed to help with your breathing. -We recommend close followup with your primary care doctor for continued monitoring of your pneumonia diagnosis. Electrolyte abnormalities. -Your potassium, phosphate and calcium levels have been consistently low while hospitalized. -It is the result and sideeffect of your multiple myeloma medications and should be closely monitored. -You are also being discharged with phosphate, potassium chloride and Vitamin D supplementation. please take as directed. -We recommend close followup with your primary care physician for those values, as if they are dangerously low they can affect your heart. Prescriptions: New doxycycline hyclate 100 mg tablet 100 mg PO BID 12 Days Qty: 24 RF: 0 levofloxacin [Levaquin] 500 mg tablet 500 mg PO DAILY 12 Days Qty: 12 RF: 0 Phospha 250 Neutral 250 mg Tablet 1 tab PO TID Qty: 90 RF: 0 potassium chloride 10 mEq capsule, extended release 10 meq PO BID 30 Days Qty: 60 RF: 0 cholecalciferol (vitamin D3) [Vitamin D3] 2,000 unit capsule 2,000 units PO DAILY 30 Days Qty: 30 RF: 0 Continued valacyclovir 500 mg tablet 500 mg PO DAILY RF: 0 aspirin [Aspirin Low Dose] 81 mg Tablet,Delayed Release (Dr/Ec) 81 mg PO DAILY RF: 0 dexamethasone 4 mg tablet 40 mg PO DIRECTED RF: 0 Velcade 3.5 mg Recon Soln subcut DIRECTED RF: 0 calcium carbonate-vitamin D3 [Calcium 500 + D] 500 mg(1,250mg) -200 unit Tablet 1 tab PO DAILY RF: 0 Revlimid 25 mg capsule 25 mg PO DIRECTED RF: 0 Xgeva 120 mg/1.7 mL (70 mg/mL) Solution SUBCUT MONTHLY RF: 0 Stand-Alone Forms: My [facility] Discharge Orders: Discharge Order (Routine); Ordered 10/23/18 Ordered By: Natalya Dorman Admission Data Admit Date/Time: 10/18/18 14:32 Attending Provider: Vikash Watkins Admit Provider: Adalberto Espinoza Primary Care Provider: nAdres Maria Other Providers: Adalberto Espinoza ; Sonu Dobson ; Jamia Herrera ; Denis Villalobos Service: Telemetry Other Interventions: Discharge Summary Assessment (RN) Last Done: 10/23/18 11:36 DC Date/Time DO NOT enter until pt leaves facility: 10/23/18 12:40 Supervising Physician Co-Signing Physician Notes I personally examined the patient and verified all pena points of history and exam, discussed case, and agree with decision making with Dr Dorman. Feeling better, would like to go home. no new complaints. does need home O2 for now. discussed ongoing treatment for pneumonia, as well as f/u for this and pulmonary edema. all questions answered to the best of my ability and to pt and 's satisfaction. vitals noted nad breathing unlabored no accessory muscles good effort. no pallor or icterus pneumonia - have to presume healthcare association, possible sepsis POA (on the basis of HR and temp first few hours in ER) - now improving. change doxy from IV to PO to cover MRSA, change to levaquin for pseudomonal level gram negative coverage (her current frailty and exposures to healthcare system strongly suggest this level of coverage, risks/benefits favor the risk for a PO quinolone being less than the risk of ongoing inpatient/IV abx/outpt IV abx) acute pulmonary edema - echo OK overall. improved w lasix. otherwise as above, stable to go home, close PCP and oncology f/u. Resident Activity Tracking Resident Involvement: Resident Care Provided Care Provided: Adult Hospital Medicine
[2018-10-23] MEDS ORDERED: CHOLECALCIFEROL 1,000 UNITS TAB PO SCH (09:00)
[2018-10-24 23:18] LABS: Legionella pneumoph IgM, IFA <1:256 TITER; Mycoplasma pneumoniae Ab, IgG <=0.90 (<=0.90); Mycoplasma pneumoniae Ab, IgM 12 U/mL (<770)
== END 2018-10-23 12:40 | disposition home health service (06) | DRG 871 ==
LOC: ED 10:38 → 2E 14:32 → SUATTDRO 14:32 → 2E 16:00

== ENCOUNTER 2022-02-03 09:45 | Inpatient (IN) ==
--- NOTE | 2022-02-03 09:50 | Emergency Department Note ---
Impression & Plan Sepsis, Multiple myeloma, Immunocompromised patient, Hypocalcemia, COVID-19 ED Provider Note NAME: MODE STEPHEN AGE: 81 SEX: F : 1940 ARRIVES VIA: Ambulance INFORMANT: Patient, ED PROVIDER(S): Yossi Byrd MD Chief Complaint: Fever, altered mental status HPI: I did receive medical command call due to concerns for the patient's fever. The patient was reportedly found down by the couch this morning by her . They did report that they were concerned and did not have obvious strokelike symptoms but did not always seem to be answering questions. The patient did have diffuse weakness. The patient was given IV fluids and 650 of Tylenol. The patient does complain of some achiness upon presentation to the emergency department. The patient had soiled herself and was cleaned at the bedside by nursing. Patient denies any head or neck pain but just generalized pain. Patient is unsure as to whether or not she fell. Patient did have fever in route. Patient denies any cough but does have some mild associated shortness of breath. Patient does have a known history of multiple myeloma per review of medical records and does follow with Dr. Dobson with oncology. The patient is on denosumab and lenalidomide. Patient also does take dexamethasone 40 mg weekly. Patient denies any abdominal reproducible back or neck pain. ROS: See HPI for pertinent positives and negatives. A total of 10 systems were reviewed and otherwise negative. Past medical history: See below Surgical history: See below Social history: See below Physical Exam: GENERAL: NAD, wearing a mask, non-toxic. Fatigued in appearance. EYE EXAM: Normal conjunctiva. PERRL, no anisocoria and EOM's grossly intact w/o pain. NECK: Supple, no nuchal rigidity, no adenopathy, non-tender. No signs of meningismus. FROM of the neck with good chin to chest and neck extension. No stridor. No midline C-spine TTP. LUNGS: Clear to auscultation. Normal chest wall mechanics. HEART: NSR, no MRG. ABDOMEN: Abdomen soft, non-tender, normo-active bowel sounds, no masses, no rebound or guarding. BACK: No CVA TTP. SKIN: No rashes and no bruising. Skin tear to right elbow without obvious deformity or TTP. Neurovascular intact distally. UPPER EXTREMITIES: Upper extremities are grossly normal. LOWER EXTREMITIES: Grossly normal, no edema. NEURO EXAM: Awake and alert occasionally answers questions appropriately, able to finger count, oriented to person and date of , cranial nerves II-XII grossly intact, normal speech, moves all 4 extremities. Differential diagnoses: Viral syndrome, otitis, pharyngitis, pneumonia, i nfluenza, meningitis, urinary tract infection, sepsis, bacteremia, as well as other pathologies. Course: Patient was seen and evaluated the bedside. Full history physical exam was performed. EKG interpreted by ks Sinus, rate of 87, normal QRS, normal axis no obvious ST elevations. Imaging Studies: See Below Cardiac monitoring: An order was placed for continuous cardiac monitoring. The monitor shows a rate of 82 with sinus rhythm. MDM: Patient was seen due to concern for fever and altered mental status. Blood work was obtained along with CT of the head blood cultures lactates empiric antibiotics and the patient did receive 2 L IV fluids. COVID swab also obtained. Patient's blood work showed a normal white count with a hemoglobin of 10. The patient's platelet count is unremarkable. Kidney function unremarkable. Patient did have hypocalcemia. Patient was ordered this for a Pleatman. Borderline low glucose of 62. Sodium 132. Patient's Pro-Percy was 7. Urinalysis does not show evidence of obvious infection. Patient is COVID-positive. Chest x-ray with cardiomegaly questionable pneumonia. Patient is receiving antibiotics. Patient's CT of the head is negative. Patient was ordered a dose of vancomycin and a MRSA swab. Given the patient's known history of multiple myeloma on immunosuppressive drugs in light of the patient's altered mental status fever COVID illness and elevated Pro-Percy I did speak with the on-call hospitalist Dr. Mcdaniel and the patient was admitted to the medicine service. Past Med/Surg History Medical History Hypersensitivity reaction Hypoxia Pneumonia Surgical History H/O removal of cyst Family History Mother Hypertension Brother Colon cancer Father Stroke Denies family history of Ovarian cancer Prostate cancer Diabetes Myocardial infarction Breast cancer Social History Smoking Status: Unknown if ever smoked Second Hand Exposure: No; Hx Alcohol Use: No Hx Substance Use: No Preferred Language: Afghan Communication Ability: Effective Customer Energy Specialist Required: No Beliefs That Will Affect Care: None marital status: Current Living Situation: Spouse current occupational status: retired Feels Safe at Home: Yes caffeine: No Dental Care, Regularly: Yes Physical Activity Frequency: Does not Exercise Seatbelt Use: always Sunscreen Use: Yes Assistive Devices: Walker Allergies Allergies Allergy/AdvReac Type Severity Reaction Status Date / Time iodine Allergy Mild SPOTS Unverified 01/30/19 10:32 BEHIND EARS,HEAVINESS IN LEGS AND ARMS X'S 24 HOURS clams Allergy Verified 01/30/19 10:32 No Known Drug Allergies Allergy Unknown Unverified 01/30/19 10:32 Home Meds Home Medications Medication Instructions Recorded Confirmed aspirin 81 mg tablet,delayed 81 mg PO DAILY 10/18/18 02/03/22 release (Noel Low Dose Aspirin) calcium carbonate 500 mg-vitamin 1 tab PO DAILY 10/18/18 02/03/22 D3 5 mcg (200 unit) tablet (Calcium 500 + D) albuterol sulfate 90 mcg/actuation See Rx Instructions inhalation 10/25/18 02/03/22 aerosol inhaler (ProAir HFA) .COMPLEX PRN Shortness Of Breath ferrous sulfate 325 mg (65 mg 325 mg PO DAILY 10/25/18 02/03/22 iron) tablet (FeroSul) denosumab 120 mg/1.7 mL (70 mg/mL) 120 mg subcut UD 01/28/19 02/03/22 subcutaneous solution (Xgeva) Results & Data (ED) Vital Signs Vital Signs - 24 hr 02/03/22 09:32 02/03/22 10:57 02/03/22 10:57 Temperature 37.5 C Temperature Source Oral Pulse Rate 85 86 Pulse Rate from SpO2 Sensor 86 Pulse Rhythm Regular Pulse Strength Normal Respiratory Rate 21 18 Respiratory Effort / Characteristics Non-Labored Respiratory Depth Normal Blood Pressure 107/58 L 97/53 L Blood Pressure Mean 74 67 Blood Pressure Position Lying Pulse Oximetry 91 92 Oxygen Delivery Method Room Air Sepsis Recent Fever Within 48 Hours Yes Sepsis New/Unexplained Change in Mental Status Yes Sepsis Action Taken by Nursing Physician Notified 02/03/22 11:09 02/03/22 11:11 02/03/22 11:11 Temperature Temperature Source Pulse Rate 86 85 Pulse Rate from SpO2 Sensor 85 86 Pulse Rhythm Pulse Strength Respiratory Rate 19 25 H Respiratory Effort / Characteristics Respiratory Depth Blood Pressure 95/53 L Blood Pressure Mean 67 Blood Pressure Position Pulse Oximetry 94 92 Oxygen Delivery Method Sepsis Recent Fever Within 48 Hours Sepsis New/Unexplained Change in Mental Status Sepsis Action Taken by Nursing 02/03/22 11:30 02/03/22 11:30 Temperature Temperature Source Pulse Rate 84 Pulse Rate from SpO2 Sensor 84 Pulse Rhythm Pulse Strength Respiratory Rate 22 Respiratory Effort / Characteristics Respiratory Depth Blood Pressure 99/55 L Blood Pressure Mean 69 Blood Pressure Position Pulse Oximetry 93 Oxygen Delivery Method Sepsis Recent Fever Within 48 Hours Sepsis New/Unexplained Change in Mental Status Sepsis Action Taken by Alf Medications Current Medication List: was personally reviewed by me Laboratory Data Attestation: I reviewed the patient's lab results. Result diagrams: 02/03/22 10:13 02/03/22 10:13 Lab Results 02/03/22 02/03/22 02/03/22 Range/Units 10:13 10:13 10:13 WBC 5.19 (4.8-10.8) K/ul RBC 3.25 L (3.93-5.22) M/uL Hgb 10.2 L (12.0-16.0) g/dl Hct 30.3 L (34.1-44.9) % MCV 93.2 (80.0-100.0) fL MCH 31.4 (25.0-34.0) pg MCHC 33.7 (32.0-36.0) g/dL RDW Std Deviation 47.7 H (36.4-46.3) fL RDW Coeff of [place] 13.9 (11.5-14.5) % Plt Count 142 (130-400) K/uL MPV 10.4 (9.4-12.3) fL Immature Gran % (Auto) 0.4 % Neut % (Auto) 74.8 % Lymph % (Auto) 12.1 % [place] % (Auto) 11.9 % Eos % (Auto) 0.2 % Baso % (Auto) 0.6 % Neut # (Auto) 3.88 (1.4-6.5) K/uL Lymph # (Auto) 0.63 L (1.2-3.4) K/uL [place] # (Auto) 0.62 (0.24-0.82) K/uL Eos # (Auto) 0.01 (0-0.50) K/uL Baso # (Auto) 0.03 (0-0.2) K/uL Immature Gran # (Auto) 0.02 (0.00-0.02) K/uL Sodium 132 L (136-145) mmol/L Potassium 4.1 (3.5-5.1) mmol/L Chloride 101 (98-107) mmol/L Carbon Dioxide 23 (21-32) mmol/L Anion Gap 8 (3-11) BUN 10 (6-23) mg/dl Creatinine 0.88 (0.6-1.2) mg/dl Est Cr Clr Drug Dosing 45.1 ml/min Est GFR ( Amer) 71.4 ml/min Est GFR (Non-Af Amer) 61.6 ml/min BUN/Creatinine Ratio 11.4 (10-20) Glucose 62 L (70-99(Fasting)) mg/dl Lactate 1.4 (0.4-2.0) mmol/L Calcium 7.9 L (8.5-10.1) mg/dl Magnesium 1.9 (1.7-2.4) mg/dl Total Bilirubin 1.7 H (0.2-1.0) mg/dl Direct Bilirubin 0.3 H (0-0.2) mg/dl AST 16 (13-39) U/L ALT 3 L (7-52) U/L Alkaline Phosphatase 37 (34-104) U/L Total Creatine Kinase (26-192) U/L Troponin I High Sens 6.4 (0-14) pg/ml C-Reactive Protein (0-0.5) mg/dl Total Protein 6.6 (6.0-8.3) gm/dl Albumin 3.4 (3.4-5.0) gm/dl Procalcitonin (0-0.5) ng/ml TSH (0.300-4.500) uIu/ml Free T4 (0.61-1.60) ng/dl Urine Color Urine Appearance (Clear) Urine pH (4.5-7.5) Ur Specific [place] (1.000-1.030) Urine Protein (Negative) Urine Glucose (UA) (Negative) Urine Ketones (Negative) Urine Blood (Negative) Urine Nitrite (Negative) Urine Bilirubin (Negative) Urine Urobilinogen (Negative) Ur Leukocyte Esterase (Negative) Urine WBC (Auto) (0-5) /hpf Urine RBC (Auto) (0-4) /hpf U Hyaline Cast (Auto) (0-5) /lpf U Epithel Cells (Auto) (0-5) /lpf Urine Bacteria (Auto) (Negative) SARS-CoV-2, RNA, NAAT (NEGATIVE) 02/03/22 02/03/22 02/03/22 Range/Units 10:13 10:13 10:13 WBC (4.8-10.8) K/ul RBC (3.93-5.22) M/uL Hgb (12.0-16.0) g/dl Hct (34.1-44.9) % MCV (80.0-100.0) fL MCH (25.0-34.0) pg MCHC (32.0-36.0) g/dL RDW Std Deviation (36.4-46.3) fL RDW Coeff of [place] (11.5-14.5) % Plt Count (130-400) K/uL MPV (9.4-12.3) fL Immature Gran % (Auto) % Neut % (Auto) % Lymph % (Auto) % [place] % (Auto) % Eos % (Auto) % Baso % (Auto) % Neut # (Auto) (1.4-6.5) K/uL Lymph # (Auto) (1.2-3.4) K/uL [place] # (Auto) (0.24-0.82) K/uL Eos # (Auto) (0-0.50) K/uL Baso # (Auto) (0-0.2) K/uL Immature Gran # (Auto) (0.00-0.02) K/uL Sodium (136-145) mmol/L Potassium (3.5-5.1) mmol/L Chloride (98-107) mmol/L Carbon Dioxide (21-32) mmol/L Anion Gap (3-11) BUN (6-23) mg/dl Creatinine (0.6-1.2) mg/dl Est Cr Clr Drug Dosing ml/min Est GFR ( Amer) ml/min Est GFR (Non-Af Amer) ml/min BUN/Creatinine Ratio (10-20) Glucose (70-99(Fasting)) mg/dl Lactate (0.4-2.0) mmol/L Calcium (8.5-10.1) mg/dl Magnesium (1.7-2.4) mg/dl Total Bilirubin (0.2-1.0) mg/dl Direct Bilirubin (0-0.2) mg/dl AST (13-39) U/L ALT (7-52) U/L Alkaline Phosphatase (34-104) U/L Total Creatine Kinase 126 (26-192) U/L Troponin I High Sens (0-14) pg/ml C-Reactive Protein 5.32 H (0-0.5) mg/dl Total Protein (6.0-8.3) gm/dl Albumin (3.4-5.0) gm/dl Procalcitonin 7.07 H (0-0.5) ng/ml TSH (0.300-4.500) uIu/ml Free T4 (0.61-1.60) ng/dl Urine Color Yellow Urine Appearance Clear (Clear) Urine pH 8.5 H (4.5-7.5) Ur Specific [place] 1.013 (1.000-1.030) Urine Protein Negative (Negative) Urine Glucose (UA) Negative (Negative) Urine Ketones Trace H (Negative) Urine Blood 1+ H (Negative) Urine Nitrite Negative (Negative) Urine Bilirubin Negative (Negative) Urine Urobilinogen Negative (Negative) Ur Leukocyte Esterase Negative (Negative) Urine WBC (Auto) 1-5 (0-5) /hpf Urine RBC (Auto) 10-30 H (0-4) /hpf U Hyaline Cast (Auto) 0 (0-5) /lpf U Epithel Cells (Auto) 5-10 H (0-5) /lpf Urine Bacteria (Auto) Negative (Negative) SARS-CoV-2, RNA, NAAT (NEGATIVE) 02/03/22 02/03/22 Range/Units 10:13 10:33 WBC (4.8-10.8) K/ul RBC (3.93-5.22) M/uL Hgb (12.0-16.0) g/dl Hct (34.1-44.9) % MCV (80.0-100.0) fL MCH (25.0-34.0) pg MCHC (32.0-36.0) g/dL RDW Std Deviation (36.4-46.3) fL RDW Coeff of [place] (11.5-14.5) % Plt Count (130-400) K/uL MPV (9.4-12.3) fL Immature Gran % (Auto) % Neut % (Auto) % Lymph % (Auto) % [place] % (Auto) % Eos % (Auto) % Baso % (Auto) % Neut # (Auto) (1.4-6.5) K/uL Lymph # (Auto) (1.2-3.4) K/uL [place] # (Auto) (0.24-0.82) K/uL Eos # (Auto) (0-0.50) K/uL Baso # (Auto) (0-0.2) K/uL Immature Gran # (Auto) (0.00-0.02) K/uL Sodium (136-145) mmol/L Potassium (3.5-5.1) mmol/L Chloride (98-107) mmol/L Carbon Dioxide (21-32) mmol/L Anion Gap (3-11) BUN (6-23) mg/dl Creatinine (0.6-1.2) mg/dl Est Cr Clr Drug Dosing ml/min Est GFR ( Amer) ml/min Est GFR (Non-Af Amer) ml/min BUN/Creatinine Ratio (10-20) Glucose (70-99(Fasting)) mg/dl Lactate (0.4-2.0) mmol/L Calcium (8.5-10.1) mg/dl Magnesium (1.7-2.4) mg/dl Total Bilirubin (0.2-1.0) mg/dl Direct Bilirubin (0-0.2) mg/dl AST (13-39) U/L ALT (7-52) U/L Alkaline Phosphatase (34-104) U/L Total Creatine Kinase (26-192) U/L Troponin I High Sens (0-14) pg/ml C-Reactive Protein (0-0.5) mg/dl Total Protein (6.0-8.3) gm/dl Albumin (3.4-5.0) gm/dl Procalcitonin (0-0.5) ng/ml TSH 10.263 H (0.300-4.500) uIu/ml Free T4 0.29 L (0.61-1.60) ng/dl Urine Color Urine Appearance (Clear) Urine pH (4.5-7.5) Ur Specific [place] (1.000-1.030) Urine Protein (Negative) Urine Glucose (UA) (Negative) Urine Ketones (Negative) Urine Blood (Negative) Urine Nitrite (Negative) Urine Bilirubin (Negative) Urine Urobilinogen (Negative) Ur Leukocyte Esterase (Negative) Urine WBC (Auto) (0-5) /hpf Urine RBC (Auto) (0-4) /hpf U Hyaline Cast (Auto) (0-5) /lpf U Epithel Cells (Auto) (0-5) /lpf Urine Bacteria (Auto) (Negative) SARS-CoV-2, RNA, NAAT POSITIVE A* (NEGATIVE) Administered Medications Enoxaparin Sodium (Enoxaparin Inj 40 Mg/0.4 Ml Syr) 40 mg SQ QPM ELIAS Stop: 03/05/22 20:59 Last Admin: 02/03/22 20:30 Dose: 40 mg Documented By: EULA Ceftriaxone Sodium 2,000 mg/ (Dextrose) 70 mls @ 100 mls/hr IV Q24H [facility]; Protocol Stop: 02/10/22 15:29 Last Infusion: 02/03/22 16:34 Dose: 0 mls/hr Documented By: Admin: 02/03/22 15:50 Dose: 100 mls/hr Documented By: HUBERT Discontinued Medications Azithromycin (Azithromycin 250 Mg Tab) 500 mg PO NOW ONE Stop: 02/03/22 13:01 Last Admin: 02/03/22 13:09 Dose: 500 mg Documented By: JEN Sodium Chloride (Nss 1000ml) 1,000 mls @ 999 mls/hr IV .Q1H1M ELIAS Stop: 02/03/22 12:00 Last Infusion: 02/03/22 12:52 Dose: 0 mls/hr Documented By: Admin: 02/03/22 12:04 Dose: 999 mls/hr Documented By: Infusion: 02/03/22 11:38 Dose: 999 mls/hr Documented By: Admin: 02/03/22 10:37 Dose: 999 mls/hr Documented By: JEN Cefepime HCl (Maxipime) 2,000 mg in 20 mls @ 5 mls/min IV NOW STA; Protocol Stop: 02/03/22 10:02 Last Admin: 02/03/22 10:37 Dose: 5 mls/min Documented By: JEN Calcium Gluconate () 1,000 mg in 60 mls @ 240 mls/hr IV NOW STA Stop: 02/03/22 11:44 Last Infusion: 02/03/22 12:52 Dose: 0 mls/hr Documented By: Admin: 02/03/22 12:14 Dose: 240 mls/hr Documented By: JEN Vancomycin HCl 1,500 mg/ (Sodium Chloride) 530 mls @ 200 mls/hr IV NOW ONE Stop: 02/03/22 14:22 Last Infusion: 02/03/22 15:13 Dose: 0 mls/hr Documented By: Admin: 02/03/22 12:05 Dose: 200 mls/hr Documented By: JEN Dexamethasone 6 mg/ Syringe 1.5 mls @ 1 mls/min IV ONE STA Stop: 02/03/22 12:56 Last Admin: 02/03/22 13:09 Dose: 1 mls/min Documented By: JEN Remdesivir 200 mg/ Sodium (Chloride) 250 mls @ 125 mls/hr IV ONE STA; Protocol Stop: 02/03/22 17:12 Last Infusion: 02/03/22 18:00 Dose: 0 mls/hr Documented By: Admin: 02/03/22 15:50 Dose: 125 mls/hr Documented By: HUBERT Imaging Data Radiologist's Impression: Chest X-Ray 02/03/22 09:59 XR chest 1V portable HISTORY: 81 years-old Female Sepsis acute sepsis COMPARISON: PET CT 09/26/2019, chest radiograph 11/29/2018 TECHNIQUE: Portable AP view of the chest FINDINGS: Cardiac silhouette is enlarged. Pulmonary vascular congestion. Mild left basilar airspace opacities. No pneumothorax, or large pleural effusion. Degenerative changes of the shoulders and spine with sigmoidal thoracolumbar scoliosis. IMPRESSION: 1. Cardiomegaly with pulmonary vascular congestion. 2. Left basilar airspace opacities may represent pneumonia. ACT 112: Negative or not required by law. The above report was generated using voice recognition software. It may contain grammatical, syntax or spelling errors. Electronically signed by: Girish Olvera M.D. 02/03/2022 10:[address] 02/03/22 09:59 CT OF THE HEAD WITHOUT CONTRAST CLINICAL HISTORY: ?fall, found on ground, AMS, febrile COMPARISON STUDY: PET/CT September 26, 2019. CT DOSE: 537.48 mGy.cm TECHNIQUE: Helical axial images of the head were obtained without IV contrast. Automated exposure control was utilized for the study. A dose lowering technique was utilized adhering to the principles of ALARA. FINDINGS: No acute intracranial hemorrhage, midline shift or mass effect is present. White matter hypodensities favor mild small vessel disease. The ventricular system is unremarkable. The basal cisterns are patent. No extra- axial collections are present. There are no findings to suggest acute dural sinus thrombosis or acute territorial infarct. No significant calvarial abnormalities are present. Visualized portions of the sinuses and mastoid air cells are clear. IMPRESSION: 1. No acute intracranial findings. 2. No acute calvarial fracture. ACT 112: Negative or not required by law. Electronically signed by: Justin Zaidi M.D. 02/03/2022 11:31 AM Discharge Plan Visit Data Chief Complaint: Altered Mental Status Stated Complaint: AMS, FEVER ED Provider: Yossi Byrd Discharge Problem: Sepsis, Multiple myeloma, Immunocompromised patient, Hypocalcemia, COVID-19 Patient Disposition: Admitted As Inpatient Discharge Instructions Interventions: ED Discharge Assessment Last Done: 02/03/22 14:39
[2022-02-03] MEDS ORDERED: CEFEPIME 2,000 MG/20 ML VIAL IV STA (09:59)
[2022-02-03 10:26] LABS: Basophils # (auto) 0.03 K/uL (0-0.2); Basophils % (auto) 0.6 %; Eosinophils # (auto) 0.01 K/uL (0-0.50); Eosinophils % (auto) 0.2 %; Hematocrit (blood only) 30.3 % (34.1-44.9); Hemoglobin 10.2 g/dl (12.0-16.0); Immature Granulocytes # (auto) 0.02 K/uL (0.00-0.02); Immature Granulocytes % (auto) 0.4 %; Lymphocytes # (auto) 0.63 K/uL (1.2-3.4); Lymphocytes % (auto) 12.1 %; Mean Corpuscular Hemoglobin 31.4 pg (25.0-34.0); Mean Corpuscular Hgb Conc 33.7 g/dL (32.0-36.0); Mean Corpuscular Volume 93.2 fL (80.0-100.0); Mean Platelet Volume 10.4 fL (9.4-12.3); Monocytes # (auto) 0.62 K/uL (0.24-0.82); Monocytes % (auto) 11.9 %; Neutrophils # (auto) 3.88 K/uL (1.4-6.5); Neutrophils % (auto) 74.8 %; Platelet Count 142 K/uL (130-400); RDW Coefficient of Variation 13.9 % (11.5-14.5); RDW Standard Deviation 47.7 fL (36.4-46.3); Red Blood Count 3.25 M/uL (3.93-5.22); White Blood Count 5.19 K/ul (4.8-10.8)
--- NOTE | 2022-02-03 10:31 | XRay Report ---
XR chest 1V portable HISTORY: 81 years-old Female Sepsis acute sepsis COMPARISON: PET CT 09/26/2019, chest radiograph 11/29/2018 TECHNIQUE: Portable AP view of the chest FINDINGS: Cardiac silhouette is enlarged. Pulmonary vascular congestion. Mild left basilar airspace opacities. No pneumothorax, or large pleural effusion. Degenerative changes of the shoulders and spine with sigm oidal thoracolumbar scoliosis. IMPRESSION: 1. Cardiomegaly with pulmonary vascular congestion. 2. Left basilar airspace opacities may represent pneumonia. ACT 112: Negative or not required by law. The above report was generated using voice recognition software. It may contain grammatical, syntax o r spelling errors. Electronically signed by: Girish Olvera M.D. 02/03/2022 10:30 AM
[2022-02-03 10:36] LABS: Appearance Urine Clear (Clear); Bacteria Urine Automated Negative (Negative); Bilirubin Urine Negative (Negative); Blood Urine 1+ (Negative); Cast Urine Automated 0 /lpf (0-5); Color Urine Yellow; Glucose Urine UA Negative (Negative); Ketones Urine Trace (Negative); Leukocyte Esterase Urine Negative (Negative); Nitrite Urine Negative (Negative); Protein Urine Negative (Negative); Specific Gravity Urine 1.013 (1.000-1.030); Urobilinogen Urine Negative (Negative); pH Urine 8.5 (4.5-7.5)
[2022-02-03] MEDS: SODIUM CHLORIDE 0.9% 1000ML 1,000 ML IV SCH ×2 (10:37→12:04)
[2022-02-03 10:51] LABS: Albumin Level 3.4 gm/dl (3.4-5.0); BUN Creatinine Ratio 11.4 (10-20); Bilirubin Direct 0.3 mg/dl (0-0.2); Bilirubin,Total 1.7 mg/dl (0.2-1.0); Calcium 7.9 mg/dl (8.5-10.1); Creatinine Clr Calc Pharmacy 45.1 ml/min; Est GFR (African American) 71.4 ml/min; Est GFR (Non-African American) 61.6 ml/min; Magnesium 1.9 mg/dl (1.7-2.4); Potassium 4.1 mmol/L (3.5-5.1); Total Protein 6.6 gm/dl (6.0-8.3)
[2022-02-03 10:56] LABS: Troponin I High Sensitivity 6.4 pg/ml (0-14)
--- NOTE | 2022-02-03 11:05 | Electrocardiogram Report ---
Test Reason : Blood Pressure : / mmHG Vent. Rate : 087 BPM Atrial Rate : 468 BPM P-R Int : 000 ms QRS Dur : 088 ms QT Int : 366 ms P-R-T Axes : 000 -44 248 degrees QTc Int : 440 ms Sinus rhythm Left axis deviation Abnormal ECG When compared with ECG of 18-OCT-2018 11:16, Borderline criteria for Inferior infarct are no longer Present T wave inversion now evident in Inferior leads T wave inversion now evident in Anterolateral leads Confirmed by Justin Perez ([id number]) on 02/03/2022 11:05:39 AM Referred By: Confirmed By:Rohith Perez
[2022-02-03] MEDS ORDERED: CALCIUM GLUCONATE 1,000 MG/60 ML BAG IV STA (11:30)
--- NOTE | 2022-02-03 11:32 | CT Scan Report ---
CT OF THE HEAD WITHOUT CONTRAST CLINICAL HISTORY: ?fall, found on ground, AMS, febrile COMPARISON STUDY: PET/CT September 26, 2019. CT DOSE: 537.48 mGy.cm TECHNIQUE: Helical axial images of the head were obtained without IV contrast. Automated exposure con trol was utilized for the study. A dose lowering technique was utilized adhering to the principles o f ALARA. FINDINGS: No acute intracranial hemorrhage, midline shift or mass effect is present. White matter hyp odensities favor mild small vessel disease. The ventricular system is unremarkable. The basal cistern s are patent. No extra-axial collections are present. There are no findings to suggest acute dural si nus thrombosis or acute territorial infarct. No significant calvarial abnormalities are present. Visu alized portions of the sinuses and mastoid air cells are clear. IMPRESSION: 1. No acute intracranial findings. 2. No acute calvarial fracture. ACT 112: Negative or not required by law. Electronically signed by: Justin Zaidi M.D. 02/03/2022 11:31 AM
[2022-02-03] MEDS ORDERED: VANCOMYCIN CONSULT ACTIVE PRN (11:44)
[2022-02-03] MEDS ORDERED: VANCOMYCIN HCL 1,500 MG in SODIUM CHLORIDE 0.9% 500 ML IV ONE (11:44)
--- NOTE | 2022-02-03 12:11 | History & Physical Report ---
Date of Service February 03, 2022 Assessment & Plan (1) Hypoxia: Plan: Suspect combination of COVID-19 and bacterial pneumonia as below Aim O2 sats greater than 94% (2) COVID-19: Plan: Unclear definitive duration of symptoms but appears to be on day 2-3 of illness Start remdesivir 200 mg IV today then 100 mg IV for 4 days Dexamethasone 6 mg IV for 10 days Encourage prone sleeping Incentive spirometer Flutter valve (3) Bacterial pneumonia: Plan: Elevated procalcitonin, left lower lobe consolidation on chest x-ray Patient has multiple myeloma but is not on any immunosuppressive agents MRSA nasal swab pending, will discontinue vancomycin if this is negative Switch cefepime to ceftriaxone 2 g IV daily Start atypical coverage with azithromycin 500 mg p.o. now then 250 mg p.o. for 4 days (4) Multiple myeloma: Plan: Patient is currently not on any chemotherapy but takes Xgeva every 3 months (5) Transient global amnesia: Plan: Little memory of the last 24 hours prior to admission. Suspect this is related to COVID-19 as above. She reports being back at her baseline cognitive function at this time. CT head -no acute intracranial findings TSH pending (6) Fall: Plan: Appears to have no pain or injuries because of the fall. Her feels she may have hit her right shoulder although has no markings and no pain in this region. Suspect she is generally weak from acute conditions above Total CK pending PT/OT (7) Diarrhea: Plan: Reportedly found in diarrhea. Will take stool PCR if diarrhea continues. Plan VTE prophylaxis - Lovenox 40 mg SQ daily Diet - regular Disposition - admit to PCU Admission and Anticipated Discharge Date Admission Date: February 03, 2022 History of Present Illness Chief Complaint: Altered mental state Primary Care Provider: Tevin Foster DO Domenica Flores is an 81-year-old female who presents to the ER after being found this morning on the floor next to the bed by her . She occasionally sleeps on her recliner and this is why her left her last night while he went to bed. This morning he was woken up to a scream and found his lying down the side of her bed and appeared that she hit her end table. He found her covered in stool. She was confused but orientated to self. Because she could barely speak to her he therefore called 911 for an ambulance. The patient has no recollection of these events. She currently feels back to her baseline cognition and her at bedside confirms this although the last thing she can remember is yesterday breakfast. She does not remember what she did yesterday during the daytime. Her reports she usually sits in her recliner and reads. She does report having a cough for the last 2 days thinking that she had inhaled some saliva and having difficulty getting it up. She denies any fevers, chills, loss of appetite/taste/smell, chest pain, abdominal pain, diarrhea, constipation. She has a significant history of multiple myeloma diagnosed in 2018. She was previously on Velcade/Revlimid/Decadron therapy in 2019. Last Velcade received in early September 2018 and she has not been on any chemotherapy since then. She is currently on Xgeva started in December 2019 which she takes every 3 months since November 2020. In the ER chest x-ray was concerning for left basilar airspace opacities consistent with pneumonia. Procalcitonin was elevated at 7.07 ng/ml. She was treated empirically for pneumonia with cefepime and vancomycin. SARS-CoV-2 PCR positive. She reports being vaccinated x2 earlier this year with no boosters. She has never known to have had COVID-19 before. She is minimally hypoxic with 90% O2 sats on room air. She was referred to medicine for admission and ongoing management of sepsis although technically she is not meeting SIRS criteria. Lactate 1.4. Allergies Allergy/AdvReac Type Severity Reaction Status Date / Time iodine Allergy Mild SPOTS Unverified 01/30/19 10:32 BEHIND EARS,HEAVINESS IN LEGS AND ARMS X'S 24 HOURS clams Allergy Verified 01/30/19 10:32 No Known Drug Allergies Allergy Unknown Unverified 01/30/19 10:32 Home Medications Medication Instructions Recorded Confirmed Type aspirin 81 mg tablet,delayed 81 mg PO DAILY 10/18/18 02/03/22 History release (Noel Low Dose Aspirin) calcium carbonate 500 mg-vitamin 1 tab PO DAILY 10/18/18 02/03/22 History D3 5 mcg (200 unit) tablet (Calcium 500 + D) albuterol sulfate 90 mcg/actuation See Rx Instructions inhalation 10/25/18 02/03/22 History aerosol inhaler (ProAir HFA) .COMPLEX PRN Shortness Of Breath ferrous sulfate 325 mg (65 mg 325 mg PO DAILY 10/25/18 02/03/22 History iron) tablet (FeroSul) denosumab 120 mg/1.7 mL (70 mg/mL) 120 mg subcut UD 01/28/19 02/03/22 History subcutaneous solution (Xgeva) Past Med/Surg History Medical History Hypersensitivity reaction Hypoxia Pneumonia Surgical History H/O removal of cyst Family History Mother Hypertension Brother Colon cancer Father Stroke Denies family history of Ovarian cancer Prostate cancer Diabetes Myocardial infarction Breast cancer Social History Smoking Status: Unknown if ever smoked Second Hand Exposure: No; Hx Alcohol Use: No Hx Substance Use: No Preferred Language: Nauruan Communication Ability: Effective Beliefs That Will Affect Care: None marital status: Current Living Situation: Spouse current occupational status: retired Feels Safe at Home: Yes caffeine: No Dental Care, Regularly: Yes Physical Activity Frequency: Does not Exercise Seatbelt Use: always Sunscreen Use: Yes Assistive Devices: Oxygen - Continuous Review of Systems Review of Systems: All systems reviewed & are unremarkable except as noted in HPI & below Physical Exam Constitutional: well developed and + frail appearing; + not well nourished and no acute distress Eyes: PERRL, conjunctivae normal, anicteric sclerae ENMT: external ear and nose normal, oropharynx normal Mouth: oral mucous membranes not dry Neck: trachea midline, no thyromegaly Results & Data Results & Data ([facility]) Vital Signs (Past 12 Hours) Vital Signs Temp Pulse Resp BP Pulse Ox O2 Del Method 02/03/22 10:57 86 18 92 02/03/22 10:57 97/53 L 02/03/22 09:32 37.5 C 85 21 107/58 L 91 Room Air Laboratory Results Abnormal lab results 02/03/22 02/03/22 02/03/22 Range/Units 10:13 10:13 10:13 RBC 3.25 L (3.93-5.22) M/uL Hgb 10.2 L (12.0-16.0) g/dl Hct 30.3 L (34.1-44.9) % RDW Std Deviation 47.7 H (36.4-46.3) fL Lymph # (Auto) 0.63 L (1.2-3.4) K/uL Sodium 132 L (136-145) mmol/L Glucose 62 L (70-99(Fasting)) mg/dl Calcium 7.9 L (8.5-10.1) mg/dl Total Bilirubin 1.7 H (0.2-1.0) mg/dl Direct Bilirubin 0.3 H (0-0.2) mg/dl ALT 3 L (7-52) U/L Procalcitonin 7.07 H (0-0.5) ng/ml Urine pH (4.5-7.5) Urine Ketones (Negative) Urine Blood (Negative) Urine RBC (Auto) (0-4) /hpf U Epithel Cells (Auto) (0-5) /lpf SARS-CoV-2, RNA, NAAT (NEGATIVE) 02/03/22 02/03/22 Range/Units 10:13 10:33 RBC (3.93-5.22) M/uL Hgb (12.0-16.0) g/dl Hct (34.1-44.9) % RDW Std Deviation (36.4-46.3) fL Lymph # (Auto) (1.2-3.4) K/uL Sodium (136-145) mmol/L Glucose (70-99(Fasting)) mg/dl Calcium (8.5-10.1) mg/dl Total Bilirubin (0.2-1.0) mg/dl Direct Bilirubin (0-0.2) mg/dl ALT (7-52) U/L Procalcitonin (0-0.5) ng/ml Urine pH 8.5 H (4.5-7.5) Urine Ketones Trace H (Negative) Urine Blood 1+ H (Negative) Urine RBC (Auto) 10-30 H (0-4) /hpf U Epithel Cells (Auto) 5-10 H (0-5) /lpf SARS-CoV-2, RNA, NAAT POSITIVE A* (NEGATIVE) Diagnostic Findings CT OF THE HEAD WITHOUT CONTRAST CLINICAL HISTORY: ?fall, found on ground, AMS, febrile COMPARISON STUDY: PET/CT September 26, 2019. CT DOSE: 537.48 mGy.cm TECHNIQUE: Helical axial images of the head were obtained without IV contrast. Automated exposure control was utilized for the study. A dose lowering technique was utilized adhering to the principles of ALARA. FINDINGS: No acute intracranial hemorrhage, midline shift or mass effect is present. White matter hypodensities favor mild small vessel disease. The ventricular system is unremarkable. The basal cisterns are patent. No extra- axial collections are present. There are no findings to suggest acute dural sinus thrombosis or acute territorial infarct. No significant calvarial abnormalities are present. Visualized portions of the sinuses and mastoid air cells are clear. IMPRESSION: 1. No acute intracranial findings. 2. No acute calvarial fracture. XR chest 1V portable HISTORY: 81 years-old Female Sepsis acute sepsis COMPARISON: PET CT 09/26/2019, chest radiograph 11/29/2018 TECHNIQUE: Portable AP view of the chest FINDINGS: Cardiac silhouette is enlarged. Pulmonary vascular congestion. Mild left basilar airspace opacities. No pneumothorax, or large pleural effusion. Degenerative changes of the shoulders and spine with sigmoidal thoracolumbar scoliosis. IMPRESSION: 1. Cardiomegaly with pulmonary vascular congestion. 2. Left basilar airspace opacities may represent pneumonia. Medications Administered ER medications given: NSS 2-hour bolus Cefepime 2 g IV Calcium gluconate 1 g IV Vancomycin 1500 mg IV ECG Indication: altered mental status Rate (beats per minute): 87 Rhythm: normal sinus Findings: + acute ischemic change (Widespread T wave inversions) and + left axis deviation Comparison ECG Date: from (October 18, 2018) Change: the following changes noted (T wave inversions are new) Code Status & VTE Plan Code Status DNR/DNI per patient wishes as discussed on admission with herself and her husb and VTE Prophylaxis Plan VTE Prophylaxis will be ordered: Yes PG Care Time/CCT Total # of Minutes Spent Total Time Spent with Patient: Total time spent is greater than 50% in coordination of care (as documented) at patient's floor/unit and/or counseling patient: Coding Level of Care Code 01344 Initial Inpt Care Lvl 3 Diagnoses Hypoxia R09.02 COVID-19 U07.1 Bacterial pneumonia J15.9 Multiple myeloma C90.00 Transient global amnesia G45.4 Fall W19.XXXA Diarrhea R19.7
[2022-02-03] MEDS ORDERED: dexAMETHasone 6 MG in SYRINGE 0 ML IV STA (12:55)
[2022-02-03] MEDS ORDERED: AZITHROMYCIN 250 MG TAB PO ONE (13:00)
[2022-02-03 14:16] LABS: C Reactive Protein 5.32 mg/dl (0-0.5)
[2022-02-03 14:24] LABS: Thyroid Stimulating Hormone 10.263 uIu/ml (0.300-4.500)
[2022-02-03 14:55] LABS: T4 Free Thyroxine 0.29 ng/dl (0.61-1.60)
[2022-02-03] MEDS ORDERED: ACETAMINOPHEN 325 MG TAB PO PRN (15:10)
[2022-02-03] MEDS ORDERED: REMDESIVIR 200 MG in SODIUM CHLORIDE 0.9% 210 ML IV STA (15:13)
[2022-02-03] MEDS: cefTRIAXone SODIUM 2,000 MG in DEXTROSE 5% 50 ML IV SCH (15:50)
[2022-02-03] MEDS: ENOXAPARIN INJ 40 MG/0.4 ML SYR SQ SCH (20:30)
[2022-02-04 03:25] LABS: Adenovirus F 40/41 PCR Not Detected (NotDetected); Astrovirus PCR Not Detected (NotDetected); Campylobacter PCR Not Detected (NotDetected); Clostridium diff Toxin A/B PCR Not Detected (NotDetected); Cryptosporidium PCR Not Detected (NotDetected); Cyclospora cayetanensis PCR Not Detected (NotDetected); Entamoeba histolytica PCR Not Detected (NotDetected); Enteroaggregative E.coli(EAEC) Not Detected (NotDetected); Enteropathogenic E.coli (EPEC) Not Detected (NotDetected); Enterotoxigenic E.coli (ETEC) Not Detected (NotDetected); Giardia lamblia PCR Not Detected (NotDetected); Norovirus GI/GII PCR Not Detected (NotDetected); Plesiomonas shigelloides PCR Not Detected (NotDetected); Rotavirus A PCR Not Detected (NotDetected); Salmonella PCR Not Detected (NotDetected); Sapovirus PCR Not Detected (NotDetected); Shiga-like Toxin E.coli (STEC) Not Detected (NotDetected); Shigella/Enteroinvasive E.coli Not Detected (NotDetected); Vibrio cholerae PCR Not Detected (NotDetected); Vibrio species PCR Not Detected (NotDetected); Yersinia enterocolitica PCR Not Detected (NotDetected)
[2022-02-04 07:58] LABS: Basophils # (auto) 0.01 K/uL (0-0.2); Basophils % (auto) 0.2 %; Hematocrit (blood only) 30.6 % (34.1-44.9); Hemoglobin 10.1 g/dl (12.0-16.0); Immature Granulocytes # (auto) 0.05 K/uL (0.00-0.02); Immature Granulocytes % (auto) 0.8 %; Lymphocytes # (auto) 0.72 K/uL (1.2-3.4); Mean Corpuscular Hemoglobin 30.6 pg (25.0-34.0); Mean Corpuscular Volume 92.7 fL (80.0-100.0); Mean Platelet Volume 10.6 fL (9.4-12.3); Monocytes # (auto) 0.32 K/uL (0.24-0.82); Monocytes % (auto) 4.9 %; Neutrophils # (auto) 5.45 K/uL (1.4-6.5); Neutrophils % (auto) 83.1 %; Platelet Count 143 K/uL (130-400); RDW Coefficient of Variation 13.9 % (11.5-14.5); RDW Standard Deviation 47.6 fL (36.4-46.3); White Blood Count 6.55 K/ul (4.8-10.8)
--- NOTE | 2022-02-04 08:36 | Hospitalist Progress Note ---
Date of Service February 04, 2022 Assessment & Plan (1) Encephalopathy due to COVID-19 virus: Plan: 81-year-old female past medical history significant for hypertension, hyperlipidemia, anemia, asthma, multiple myeloma presented to the hospital with altered mental status and was diagnosed with COVID-19 as well as superimposed bacterial pneumonia. Encephalopathy due to COVID-19: Found by her yesterday morning lying on the side of her bed, appearing to have hit her head on the end table and covered in the stool. CT head did not show any acute intracranial findings. Patient's presentation likely due to worsening illness over the last several days with COVID-19 and superimposed bacterial pneumonia causing encephalopathy. Encephalopathy has since resolved, and patient is at her baseline cognitive status. PT and OT evaluated patient and recommended home with home health services. Continue dexamethasone 6 mg IV daily and remdesivir 100 mg daily. (2) Community acquired bacterial pneumonia: Plan: Patient presented with altered mental status and hypoxia. Chest x-ray showed left basilar airspace opacities possibly representing pneumonia, as well as pulmonary vascular congestion. CRP and procalcitonin elevated on admission. Blood cultures were collected, pending. Nasal MRSA negative, vancomycin discontinued. Continue ceftriaxone 2 g IV daily and azithromycin 250 mg p.o. (antibiotics to complete 02/07) for superimposed bacterial pneumonia. Supplemental oxygen as needed, however patient has not required it to date. (3) Hypothyroidism: Plan: Admission labs notable for TSH of 10.263 with free T4 of 0.29. Will initiate levothyroxine 75 mcg daily with repeat TSH by PCP in about 2 months. (4) Hypoxia: Plan: Resolved. Briefly SpO2 90% on RA on admission, however saturating normally today. (5) Multiple myeloma: Plan: Patient is currently not on any chemotherapy but takes Xgeva every 3 months. Patient's cell lines on CBC are at their baseline. (6) Fall: Plan: Unclear exact mechanism of a fall as patient was found down by . CT head without evidence of bleeding. Chest x-ray without fractures. Patient does not report any pain today. PT and OT recommend home health services for continued strengthening on discharge. Plan CODE STATUS: DNR/DNI VTE prophylaxis - Lovenox 40 mg SQ daily Diet - Regular Disposition - admit to PCU Admission and Anticipated Discharge Date Admission Date: February 03, 2022 Subjective No acute events overnight. Today patient reports no complaints of trouble breathing either at rest or with getting up with physical therapy. She does not have recollection of the events of yesterday however recalls everything since arrival to the hospital. Review of Systems Constitutional: no fever and no chills Respiratory: no cough and no dyspnea Cardiovascular: no chest pain and no palpitations Gastrointestinal: no abdominal pain, no nausea and no vomiting Physical Exam Constitutional: WD/WN, vitals as above Respiratory: normal respiratory effort, lungs clear to auscultation Cardiovascular: RRR, no murmur, no edema Gastrointestinal (Abdomen): normal bowel sounds, soft, nontender, no hepatosplenomegaly Skin: no rashes, warm and dry Neurologic: Witnessed patient walking with OT, no unsteadiness on her feet. Used walker effectively. Psychiatric: A+Ox3, euthymic affect Results & Data Results & Data ([facility]) Vital Signs (Past 12 Hours) Vital Signs Temp Pulse Pulse Resp BP Pulse Ox O2 Del Method 02/04/22 07:59 37.0 C 69 18 133/72 95 Room Air 02/04/22 03:18 36.9 C 71 18 122/63 94 Room Air 02/03/22 22:48 76 PG Care Time/CCT Total # of Minutes Spent Total Time Spent with Patient: Total time spent is greater than 50% in coordination of care (as documented) at patient's floor/unit and/or counseling patient: Coding Level of Care Code 19319 Subseq Hosp Care Lvl 3 Diagnoses Encephalopathy due to COVID-19 virus U07.1; G93.49 Community acquired bacterial pneumonia J15.9 Hypothyroidism E03.9 Hypoxia R09.02 Multiple myeloma C90.00 Multiple myeloma remission status: unspecified Fall W19.XXXA (1) Multiple myeloma Multiple myeloma remission status: unspecified Qualified Code(s): C90.00 - Multiple myeloma not having achieved remission
[2022-02-04] MEDS: ASPIRIN 81 MG ECTAB PO SCH (09:12)
[2022-02-04] MEDS: AZITHROMYCIN 250 MG TAB PO SCH (09:12)
[2022-02-04] MEDS: LEVOTHYROXINE SODIUM 75 MCG TABLET PO SCH (09:12)
[2022-02-04] MEDS: dexAMETHasone 6 MG in SYRINGE 0 ML IV SCH (09:12)
[2022-02-04 09:22] LABS: Albumin Globulin Ratio 1.3 (0.9-2); Albumin Level 3.5 gm/dl (3.4-5.0); BUN Creatinine Ratio 20.6 (10-20); Bilirubin,Total 0.9 mg/dl (0.2-1.0); Calcium 7.4 mg/dl (8.5-10.1); Creatinine Clr Calc Pharmacy 58.4 ml/min; Est GFR (African American) 95.1 ml/min; Globulin 2.8 gm/dl (2.5-4.0); Potassium 3.9 mmol/L (3.5-5.1); Total Protein 6.3 gm/dl (6.0-8.3)
[2022-02-04] MEDS: REMDESIVIR 100 MG in SODIUM CHLORIDE 0.9% 230 ML IV SCH (12:22)
[2022-02-04] MEDS: cefTRIAXone SODIUM 2,000 MG in DEXTROSE 5% 50 ML IV SCH (16:19)
[2022-02-04] MEDS: ENOXAPARIN INJ 40 MG/0.4 ML SYR SQ SCH (20:37)
[2022-02-05] MEDS: LEVOTHYROXINE SODIUM 75 MCG TABLET PO SCH (06:04)
[2022-02-05 06:54] LABS: Albumin Globulin Ratio 1.1 (0.9-2); Albumin Level 3.4 gm/dl (3.4-5.0); BUN Creatinine Ratio 28.8 (10-20); Bilirubin,Total 0.6 mg/dl (0.2-1.0); Calcium 7.7 mg/dl (8.5-10.1); Creatinine Clr Calc Pharmacy 60.2 ml/min; Est GFR (Non-African American) 82.8 ml/min; Potassium 3.8 mmol/L (3.5-5.1); Total Protein 6.4 gm/dl (6.0-8.3)
--- NOTE | 2022-02-05 07:46 | Discharge Summary ---
Discharge Summary Date of Service February 05, 2022 Admission HPI Per Admitting Provider Domenica Flores is an 81-year-old female who presents to the ER after being found this morning on the floor next to the bed by her . She occasionally sleeps on her recliner and this is why her left her last night while he went to bed. This morning he was woken up to a scream and found his lying down the side of her bed and appeared that she hit her end table. He found her covered in stool. She was confused but orientated to self. Because she could barely speak to her he therefore called 911 for an ambulance. The patient has no recollection of these events. She currently feels back to her baseline cognition and her at bedside confirms this although the last thing she can remember is yesterday breakfast. She does not remember what she did yesterday during the daytime. Her reports she usually sits in her recliner and reads. She does report having a cough for the last 2 days thinking that she had inhaled some saliva and having difficulty getting it up. She denies any fevers, chills, loss of appetite/taste/smell, chest pain, abdominal pain, diarrhea, constipation. She has a significant history of multiple myeloma diagnosed in 2018. She was previously on Velcade/Revlimid/Decadron therapy in 2019. Last Velcade received in early September 2018 and she has not been on any chemotherapy since then. She is c urrently on Xgeva started in December 2019 which she takes every 3 months since November 2020. In the ER chest x-ray was concerning for left basilar airspace opacities consistent with pneumonia. Procalcitonin was elevated at 7.07 ng/ml. She was treated empirically for pneumonia with cefepime and vancomycin. SARS-CoV-2 PCR positive. She reports being vaccinated x2 earlier this year with no boosters. She has never known to have had COVID-19 before. She is minimally hypoxic with 90% O2 sats on room air. She was referred to medicine for admission and ongoing management of sepsis although technically she is not meeting SIRS criteria. Lactate 1.4. Admission Exam Per Admitting Provider Constitutional: well developed and + frail appearing; + not well nourished and no acute distress Eyes: PERRL, conjunctivae normal, anicteric sclerae ENMT: external ear and nose normal, oropharynx normal Mouth: oral mucous me mbranes not dry Neck: trachea midline, no thyromegaly Principal Dx & Hospital Course #1 = Principal Diagnosis (1) Encephalopathy due to COVID-19 virus: 81-year-old female past medical history significant for hypertension, hyperlipidemia, anemia, asthma, multiple myeloma presented to the hospital with altered mental status and was diagnosed with COVID-19 as well as superimposed bacterial pneumonia. Encephalopathy due to COVID-19 and bacterial pneumonia: Found by her morning of 02/03 lying on the side of her bed, appearing to have hit her head on the end table and covered in the stool. CT head did not show any acute intracranial findings. COVID-19 positive on admission. Patient's presentation likely due to worsening illness over the last several days with COVID-19 and superimposed bacterial pneumonia causing encephalopathy. Encephalopathy has since resolved, and patient is at her baseline cognitive sta tus. PT and OT evaluated patient and recommended home with home health services. Treatment of community-acquired pneumonia as described below. Recommended quarantine total of 10 days to complete on 02/13. (2) Community acquired bacterial pneumonia: Patient presented with altered mental status and hypoxia. Chest x-ray showed left basilar airspace opacities possibly representing pneumonia, as well as pulmonary vascular congestion. CRP and procalcitonin elevated on admission. Blood cultures were collected, negative to date. Nasal MRSA negative. Was initially started on ceftriaxone 2 g daily and azithromycin 5-day course. To complete antibiotics at home with Augmentin twice daily (completes on 02/09) and azithromycin (completes 02/07). (3) Fall: Unclear exact mechanism of a fall as patient was found down by . CT head without evidence of bleeding. Chest x-ray without fractures. Patient does not report any pain today. PT and OT recommend return home. (4) Hypothyroidism: Admission labs notable for TSH of 10.263 with free T4 of 0.29. Will initiate levothyroxine 75 mcg daily with repeat TSH by PCP in about 2 m onths. (5) Hypoxia: Resolved. Briefly SpO2 90% on RA on admission, however saturating normally on day of discharge. (6) Multiple myeloma: Patient is currently not on any chemotherapy but takes Xgeva every 3 months. Patient's cell lines on CBC are at their baseline. Plan Disposition: Home with self-care Discharge Exam Constitutional WD/WN, vitals as above Respiratory normal respiratory effort, lungs clear to auscultation Cardiovascular RRR, no murmur, no edema Skin no rashes, warm and dry Psychiatric A+Ox3, euthymic affect Updated Medication List Medication Instructions Recorded Confirmed Type aspirin 81 mg tablet,delayed 81 mg PO DAILY 10/18/18 02/03/22 History release (Noel Low Dose Aspirin) calcium carbonate 500 mg-vitamin 1 tab PO DAILY 10/18/18 02/03/22 History D3 5 mcg (200 unit) tablet (Calcium 500 + D) albuterol sulfate 90 mcg/actuation See Rx Instructions inhalation 10/25/18 02/03/22 History aerosol inhaler (ProAir HFA) .COMPLEX PRN Shortness Of Breath ferrous sulfate 325 mg (65 mg 325 mg PO DAILY 10/25/18 02/03/22 History iron) tablet (FeroSul) denosumab 120 mg/1.7 mL (70 mg/mL) 120 mg subcut UD 01/28/19 02/03/22 History subcutaneous solution (Xgeva) amoxicillin 875 mg-potassium 1 tab PO BIDM 4 days #8 tabs 02/05/22 Rx clavulanate 125 mg tablet azithromycin 250 mg tablet 250 mg PO QAM 2 days #2 tabs 02/05/22 Rx levothyroxine 75 mcg tablet 75 mcg PO DAILYBB 30 days #30 tabs 02/05/22 Rx (Synthroid) Hospital Stay Data Consultations 02/03/22 12:18 ED Decision to Admit Stat Diagnostic Imagining Performed 02/03/22 09:59 CT head/brain wo con Stat Discharge Instructions Given to Patient (Per Discharging Provider) You were admitted to the hospital for pneumonia due to COVID-19 antibacterial infection. You were given medications for viral illness and steroids to help with recovery from COVID-19. You are also given antibiotics for the bacterial infection (we suspect that the bacterial infection "took advantage" of your compromised immune system with COVID, causing you to have 2 reasons for pneumonia). While you were here routine lab work also showed that you had thyroid levels that suggest hypothyroidism (underactive thyroid). After improvement in your symptoms, and evaluation by physical and Occupational Therapy, you are felt to be safe for discharge home with the following medication adjustments: 1) continue azithromycin, an antibiotic. This antibiotic is 1 pill daily until complete, starting tomorrow. 2) start Augmentin, an antibiotic. This antibiotic is 1 pill every 12 hours with food and water until complete, starting tomorrow morning. 3) we started you on levothyroxine, a medication for hypothyroidism. This medication is 1 pill once daily in the morning before breakfast. You will have thyroid levels checked by your primary care provider in a few months after starting this medication. You should have follow-up with your primary care provider within a week or 2 of discharge from the hospital to see how you are feeling. Because you were diagnosed with COVID on 02/03, you should remain in quarantine until 02/13. If you are going to be around anyone it is extremely important that you wear a mask. If you have any worsening of your breathing, chest pain, or other concerning medical symptoms, please seek urgent medical evaluation. Total Time Total Time Spent Total Time Spent (In Minutes): 35 minutes Coding Level of Care Code D/C DAY MANAGEMENT >30 MINS Diagnoses Encephalopathy due to COVID-19 virus U07.1; G93.49 Community acquired bacterial pneumonia J15.9 Fall W19.XXXA Hypothyroidism E03.9 Hypoxia R09.02 Multiple myeloma C90.00 Multiple myeloma remission status: unspecified
[2022-02-05] MEDS: dexAMETHasone 6 MG in SYRINGE 0 ML IV SCH (07:49)
[2022-02-05] MEDS: AZITHROMYCIN 250 MG TAB PO SCH (07:50)
[2022-02-05] MEDS: ASPIRIN 81 MG ECTAB PO SCH (07:50)
[2022-02-05] MEDS: REMDESIVIR 100 MG in SODIUM CHLORIDE 0.9% 230 ML IV SCH (11:30)
[2022-02-05] MEDS ORDERED: AMOXICILLIN/CLAVULANATE 875 MG TAB PO SCH (17:00)
== END 2022-02-05 15:10 | disposition home or self-care (01) | DRG 177 ==
LOC: ED 09:45 → SUATTDRO 11:57 → 2S 11:57

== ENCOUNTER 2022-04-26 13:18 | Inpatient (IN) ==
--- NOTE | 2022-04-26 14:12 | Emergency Department Note ---
Impression & Plan Acute alteration in mental status, Acute confusion, Hypoglycemia ED Provider Note NAME: MODE STEPHEN AGE: 81 SEX: F : 1940 ARRIVES VIA: Ambulance INFORMANT: Patient, ED PROVIDER(S): Demond Perdomo DO CHIEF COMPLAINT: Altered mental status HPI: The patient is an 81-year-old female who presented to the emergency depart ment for evaluation of altered mental status. The patient was in her bed and she is not acting appropriately. Her significant other called 911. She was brought to the emergency department via ambulance. She was found to have a blood sugar in the 30s. She has no history of diabetes and takes no insulin. She is been on no new medications. She does have a history of hypothyroidism and states that she has been compliant with her outpatient medications. She does take levothyroxine. She denies having any recent traveling or falls. She denies having any headache nausea or vomiting. She states that she has been eating as normally. She was treated with IV dextrose prior to arrival and has been awake alert and feels at her baseline ever since. ROS: See above HPI for pertinent positives & negatives. A total of 10 systems reviewed and were otherwise negative. PAST MEDICAL HISTORY: See Below PAST SURGICAL HISTORY: See Below FAMILY HISTORY: See Below SOCIAL HISTORY: See Below HOME MEDICATIONS: See Below ALLERGIES: See Below VITALS: See Below PHYSICAL EXAMINATION: GENERAL: Patient is awake alert in no acute distress patient is resting comfortably and showing no signs of anxiety EYES: The conjunctivae are clear. The pupils are round and reactive. EARS, NOSE, MOUTH AND THROAT: The nose is without any evidence of any deformity. NECK: The neck is nontender and supple. RESPIRATORY: Normal respiratory effort is noted there is no evidence of wheezing rhonchi or rales CARDIOVASCULAR: Irregular heart sounds noted auscultation. There is no definite murmur. GASTROINTESTINAL: The abdomen is soft. Abdomen is nontender. MUSCULOSKELETAL/EXTREMITIES: There is no evidence of gross deformity full range of motion is noted in the hips and shoulders. SKIN: There is no obvious evidence of any rash. There are no petechiae, pallor or cyanosis noted. NEUROLOGIC: Patient is awake alert and oriented x3 the patient is able to hold each leg off the bed for greater than 5 seconds. MEDICAL DECISION MAKING: The patient is an 81-year-old female who presented to the emergency department for an evaluation of altered mental status. She was found have hyperglycemia but she is not diabetic. Initially patient's mental status did wax and wane. She was awake and alert but then she started having more confusion and fell in the emergency department. She went back over for repeat CT. There is no signs of trauma. I discussed the patient's laboratory and radiographic studies with her. Family members were contacted and they are comfortable with the patient going home as they feel that she is a fall risk. I do agree with this. For this reason I discussed her case with the on-call [facility]. They have agreed to evaluate the patient in the emergency department for further management and disposition Triage Nursing notes reviewed. Prior medical records reviewed Vital Signs: reviewed and remarkable for no significant abnormalities Differential diagnosis: Infection, hypoglycemia, electrolyte abnormalities, overdose, toxicologic, cardiac sources, intracerebral event, neurologic, trauma, as well as other pathologies. ER treatment provided: See below Diagnostics interpreted by me: ECG: EKG was obtained in the emergency department. My interpretation is normal sinus rhythm 86 bpm. There is no ectopy. Lateral ST depressions with T wave abnormalities were noted. Low voltage was noted throughout. This was compared to a tracing from February 03, 2022. No changes were noted. Cardiac Monitoring: An order was placed for continuous cardiac monitoring. The monitor shows a rate of 77 bpm with sinus rhythm. Laboratory studies: As stated above and show below. Imaging studies: See below Consultation(s): I discussed this case with Dr Houston who is on-call for the [facility]. Past Med/Surg History Medical History COVID-19 Fall Hypersensitivity reaction Hypoxia Pneumonia Surgical History H/O removal of cyst Family History Mother Hypertension Brother Colon cancer Father Stroke Denies family history of Ovarian cancer Prostate cancer Diabetes Myocardial infarction Breast cancer Social History Smoking Status: Never smoker Second Hand Exposure: No; Hx Alcohol Use: No Hx Substance Use: No Preferred Language: Khmer Communication Ability: Effective Psychology Clinician Required: No Beliefs That Will Affect Care: None marital status: Current Living Situation: Spouse current occupational status: retired Feels Safe at Home: Yes caffeine: No Dental Care, Regularly: Yes Physical Activity Frequency: Does not Exercise Seatbelt Use: always Sunscreen Use: Yes Assistive Devices: Walker Allergies Allergies Allergy/AdvReac Type Severity Reaction Status Date / Time iodine Allergy Mild SPOTS Verified 04/26/22 19:41 BEHIND EARS,HEAVINESS IN LEGS AND ARMS X'S 24 HOURS clams Allergy Unknown Verified 04/26/22 19:41 Home Meds Home Medications Medication Instructions Recorded Confirmed aspirin 81 mg tablet,delayed 81 mg PO DAILY 10/18/18 04/26/22 release (Noel Low Dose Aspirin) calcium carbonate 500 mg-vitamin 1 tab PO DAILY 10/18/18 04/26/22 D3 5 mcg (200 unit) tablet (Calcium 500 + D) albuterol sulfate 90 mcg/actuation See Rx Instructions inhalation 10/25/18 04/26/22 aerosol inhaler (ProAir HFA) .COMPLEX PRN Shortness Of Breath ferrous sulfate 325 mg (65 mg 325 mg PO DAILY 10/25/18 04/26/22 iron) tablet (FeroSul) denosumab 120 mg/1.7 mL (70 mg/mL) 120 mg subcut UD 01/28/19 04/26/22 subcutaneous solution (Xgeva) Previous Rx's Medication Instructions Recorded levothyroxine 75 mcg tablet 75 mcg PO DAILYBB 30 days #30 tabs 04/01/22 (Synthroid) Results & Data (ED) Vital Signs Vital Signs - 24 hr 04/26/22 14:41 04/26/22 16:00 04/26/22 16:00 Temperature 36.7 C Temperature Source Oral Pulse Rate 94 H 90 Pulse Rate from SpO2 Sensor 90 Respiratory Rate 16 24 Respiratory Effort / Characteristics Spontaneous Respiratory Depth Normal Blood Pressure 157/90 H 134/76 Blood Pressure Mean 112 95 Pulse Oximetry 95 91 Oxygen Delivery Method Room Air Sepsis Recent Fever Within 48 Hours No Sepsis New/Unexplained Change in Mental Status N/A Sepsis Action Taken by Nursing No Action Required 04/26/22 19:00 Temperature Temperature Source Pulse Rate 61 Pulse Rate from SpO2 Sensor 96 H Respiratory Rate 23 Respiratory Effort / Characteristics Respiratory Depth Blood Pressure 115/67 Blood Pressure Mean 83 Pulse Oximetry 97 Oxygen Delivery Method Sepsis Recent Fever Within 48 Hours Sepsis New/Unexplained Change in Mental Status Sepsis Action Taken by Residential Medications Current Medication List: was personally reviewed by me Laboratory Data Attestation: I reviewed the patient's lab results. It was noted to have leukopenia. Result diagrams: 04/26/22 14:34 04/26/22 14:34 Lab Results 04/26/22 04/26/22 04/26/22 Range/Units 14:16 14:34 14:34 WBC 2.02 L (4.8-10.8) K/ul RBC 3.76 L (3.93-5.22) M/uL Hgb 11.5 L (12.0-16.0) g/dl Hct 35.4 (34.1-44.9) % MCV 94.1 (80.0-100.0) fL MCH 30.6 (25.0-34.0) pg MCHC 32.5 (32.0-36.0) g/dL RDW Std Deviation 46.5 H (36.4-46.3) fL RDW Coeff of Yanick 13.4 (11.5-14.5) % Plt Count 138 (130-400) K/uL MPV 10.6 (9.4-12.3) fL Immature Gran % (Auto) 0.5 % Neut % (Auto) 57.4 % Lymph % (Auto) 26.7 % Cochran % (Auto) 9.9 % Eos % (Auto) 4.0 % Baso % (Auto) 1.5 % Neut # (Auto) 1.16 L (1.4-6.5) K/uL Lymph # (Auto) 0.54 L (1.2-3.4) K/uL Cochran # (Auto) 0.20 L (0.24-0.82) K/uL Eos # (Auto) 0.08 (0-0.50) K/uL Baso # (Auto) 0.03 (0-0.2) K/uL Immature Gran # (Auto) 0.01 (0.00-0.02) K/uL ESR (0-30) mm/hr PT 12.9 H (9.0-12.0) Seconds INR 1.2 H (0.9-1.1) APTT 32.5 H (21.0-31.0) Seconds PTT Ratio 1.2 Sodium (136-145) mmol/L Potassium (3.5-5.1) mmol/L Chloride (98-107) mmol/L Carbon Dioxide (21-32) mmol/L Anion Gap (3-11) BUN (6-23) mg/dl Creatinine (0.6-1.2) mg/dl Est Cr Clr Drug Dosing ml/min Est GFR ( Amer) ml/min Est GFR (Non-Af Amer) ml/min BUN/Creatinine Ratio (10-20) Glucose (70-99(Fasting)) mg/dl POC Glucose (70-99) mg/dl Calcium (8.5-10.1) mg/dl Magnesium (1.7-2.4) mg/dl Total Bilirubin (0.2-1.0) mg/dl AST (13-39) U/L ALT (7-52) U/L Alkaline Phosphatase (34-104) U/L Total Creatine Kinase (26-192) U/L Troponin I High Sens (0-14) pg/ml C-Reactive Protein (0-0.5) mg/dl Total Protein (6.0-8.3) gm/dl Albumin (3.4-5.0) gm/dl Globulin (2.5-4.0) gm/dl Albumin/Globulin Ratio (0.9-2) Procalcitonin (0-0.5) ng/ml TSH (0.300-4.500) uIu/ml Urine Color Urine Appearance (Clear) Urine pH (4.5-7.5) Ur Specific [place] (1.000-1.030) Urine Protein (Negative) Urine Glucose (UA) (Negative) Urine Ketones (Negative) Urine Blood (Negative) Urine Nitrite (Negative) Urine Bilirubin (Negative) Urine Urobilinogen (Negative) Ur Leukocyte Esterase (Negative) Urine WBC (Auto) (0-5) /hpf Urine RBC (Auto) (0-4) /hpf U Hyaline Cast (Auto) (0-5) /lpf U Epithel Cells (Auto) (0-5) /lpf Urine Bacteria (Auto) (Negative) Lyme Disease IgG Ab (Negative) Lyme Disease IgM Ab (Negative) SARS-CoV-2, RNA, NAAT NEGATIVE (NEGATIVE) 04/26/22 04/26/22 04/26/22 Range/Units 14:34 14:34 14:34 WBC (4.8-10.8) K/ul RBC (3.93-5.22) M/uL Hgb (12.0-16.0) g/dl Hct (34.1-44.9) % MCV (80.0-100.0) fL MCH (25.0-34.0) pg MCHC (32.0-36.0) g/dL RDW Std Deviation (36.4-46.3) fL RDW Coeff of Yanick (11.5-14.5) % Plt Count (130-400) K/uL MPV (9.4-12.3) fL Immature Gran % (Auto) % Neut % (Auto) % Lymph % (Auto) % Cochran % (Auto) % Eos % (Auto) % Baso % (Auto) % Neut # (Auto) (1.4-6.5) K/uL Lymph # (Auto) (1.2-3.4) K/uL Cochran # (Auto) (0.24-0.82) K/uL Eos # (Auto) (0-0.50) K/uL Baso # (Auto) (0-0.2) K/uL Immature Gran # (Auto) (0.00-0.02) K/uL ESR 61 H (0-30) mm/hr PT (9.0-12.0) Seconds INR (0.9-1.1) APTT (21.0-31.0) Seconds PTT Ratio Sodium 133 L (136-145) mmol/L Potassium 3.6 (3.5-5.1) mmol/L Chloride 101 (98-107) mmol/L Carbon Dioxide 25 (21-32) mmol/L Anion Gap 7 (3-11) BUN 13 (6-23) mg/dl Creatinine 0.62 (0.6-1.2) mg/dl Est Cr Clr Drug Dosing 56.3 ml/min Est GFR ( Amer) 98.0 ml/min Est GFR (Non-Af Amer) 84.6 ml/min BUN/Creatinine Ratio 21.0 H (10-20) Glucose 155 H (70-99(Fasting)) mg/dl POC Glucose (70-99) mg/dl Calcium 8.2 L (8.5-10.1) mg/dl Magnesium 1.9 (1.7-2.4) mg/dl Total Bilirubin 1.5 H (0.2-1.0) mg/dl AST 18 (13-39) U/L ALT 4 L (7-52) U/L Alkaline Phosphatase 44 (34-104) U/L Total Creatine Kinase 64 (26-192) U/L Troponin I High Sens 22.7 H (0-14) pg/ml C-Reactive Protein 5.44 H (0-0.5) mg/dl Total Protein 6.9 (6.0-8.3) gm/dl Albumin 3.6 (3.4-5.0) gm/dl Globulin 3.3 (2.5-4.0) gm/dl Albumin/Globulin Ratio 1.1 (0.9-2) Procalcitonin (0-0.5) ng/ml TSH 0.837 (0.300-4.500) uIu/ml Urine Color Urine Appearance (Clear) Urine pH (4.5-7.5) Ur Specific [place] (1.000-1.030) Urine Protein (Negative) Urine Glucose (UA) (Negative) Urine Ketones (Negative) Urine Blood (Negative) Urine Nitrite (Negative) Urine Bilirubin (Negative) Urine Urobilinogen (Negative) Ur Leukocyte Esterase (Negative) Urine WBC (Auto) (0-5) /hpf Urine RBC (Auto) (0-4) /hpf U Hyaline Cast (Auto) (0-5) /lpf U Epithel Cells (Auto) (0-5) /lpf Urine Bacteria (Auto) (Negative) Lyme Disease IgG Ab (Negative) Lyme Disease IgM Ab (Negative) SARS-CoV-2, RNA, NAAT (NEGATIVE) 04/26/22 04/26/22 04/26/22 Range/Units 14:34 14:34 16:27 WBC (4.8-10.8) K/ul RBC (3.93-5.22) M/uL Hgb (12.0-16.0) g/dl Hct (34.1-44.9) % MCV (80.0-100.0) fL MCH (25.0-34.0) pg MCHC (32.0-36.0) g/dL RDW Std Deviation (36.4-46.3) fL RDW Coeff of Yanick (11.5-14.5) % Plt Count (130-400) K/uL MPV (9.4-12.3) fL Immature Gran % (Auto) % Neut % (Auto) % Lymph % (Auto) % Cochran % (Auto) % Eos % (Auto) % Baso % (Auto) % Neut # (Auto) (1.4-6.5) K/uL Lymph # (Auto) (1.2-3.4) K/uL Cochran # (Auto) (0.24-0.82) K/uL Eos # (Auto) (0-0.50) K/uL Baso # (Auto) (0-0.2) K/uL Immature Gran # (Auto) (0.00-0.02) K/uL ESR (0-30) mm/hr PT (9.0-12.0) Seconds INR (0.9-1.1) APTT (21.0-31.0) Seconds PTT Ratio Sodium (136-145) mmol/L Potassium (3.5-5.1) mmol/L Chloride (98-107) mmol/L Carbon Dioxide (21-32) mmol/L Anion Gap (3-11) BUN (6-23) mg/dl Creatinine (0.6-1.2) mg/dl Est Cr Clr Drug Dosing ml/min Est GFR ( Amer) ml/min Est GFR (Non-Af Amer) ml/min BUN/Creatinine Ratio (10-20) Glucose (70-99(Fasting)) mg/dl POC Glucose (70-99) mg/dl Calcium (8.5-10.1) mg/dl Magnesium (1.7-2.4) mg/dl Total Bilirubin (0.2-1.0) mg/dl AST (13-39) U/L ALT (7-52) U/L Alkaline Phosphatase (34-104) U/L Total Creatine Kinase (26-192) U/L Troponin I High Sens (0-14) pg/ml C-Reactive Protein (0-0.5) mg/dl Total Protein (6.0-8.3) gm/dl Albumin (3.4-5.0) gm/dl Globulin (2.5-4.0) gm/dl Albumin/Globulin Ratio (0.9-2) Procalcitonin 0.21 (0-0.5) ng/ml TSH (0.300-4.500) uIu/ml Urine Color Yellow Urine Appearance Clear (Clear) Urine pH 5.5 (4.5-7.5) Ur Specific [place] 1.016 (1.000-1.030) Urine Protein Negative (Negative) Urine Glucose (UA) 2+ H (Negative) Urine Ketones 1+ H (Negative) Urine Blood 1+ H (Negative) Urine Nitrite Negative (Negative) Urine Bilirubin Negative (Negative) Urine Urobilinogen Negative (Negative) Ur Leukocyte Esterase Negative (Negative) Urine WBC (Auto) 1-5 (0-5) /hpf Urine RBC (Auto) 5-10 H (0-4) /hpf U Hyaline Cast (Auto) 1-5 (0-5) /lpf U Epithel Cells (Auto) 5-10 H (0-5) /lpf Urine Bacteria (Auto) Negative (Negative) Lyme Disease IgG Ab Positive A (Negative) Lyme Disease IgM Ab Negative (Negative) SARS-CoV-2, RNA, NAAT (NEGATIVE) 04/26/22 Range/Units 17:37 WBC (4.8-10.8) K/ul RBC (3.93-5.22) M/uL Hgb (12.0-16.0) g/dl Hct (34.1-44.9) % MCV (80.0-100.0) fL MCH (25.0-34.0) pg MCHC (32.0-36.0) g/dL RDW Std Deviation (36.4-46.3) fL RDW Coeff of Yanick (11.5-14.5) % Plt Count (130-400) K/uL MPV (9.4-12.3) fL Immature Gran % (Auto) % Neut % (Auto) % Lymph % (Auto) % Cochran % (Auto) % Eos % (Auto) % Baso % (Auto) % Neut # (Auto) (1.4-6.5) K/uL Lymph # (Auto) (1.2-3.4) K/uL Cochran # (Auto) (0.24-0.82) K/uL Eos # (Auto) (0-0.50) K/uL Baso # (Auto) (0-0.2) K/uL Immature Gran # (Auto) (0.00-0.02) K/uL ESR (0-30) mm/hr PT (9.0-12.0) Seconds INR (0.9-1.1) APTT (21.0-31.0) Seconds PTT Ratio Sodium (136-145) mmol/L Potassium (3.5-5.1) mmol/L Chloride (98-107) mmol/L Carbon Dioxide (21-32) mmol/L Anion Gap (3-11) BUN (6-23) mg/dl Creatinine (0.6-1.2) mg/dl Est Cr Clr Drug Dosing ml/min Est GFR ( Amer) ml/min Est GFR (Non-Af Amer) ml/min BUN/Creatinine Ratio (10-20) Glucose (70-99(Fasting)) mg/dl POC Glucose 74 (70-99) mg/dl Calcium (8.5-10.1) mg/dl Magnesium (1.7-2.4) mg/dl Total Bilirubin (0.2-1.0) mg/dl AST (13-39) U/L ALT (7-52) U/L Alkaline Phosphatase (34-104) U/L Total Creatine Kinase (26-192) U/L Troponin I High Sens (0-14) pg/ml C-Reactive Protein (0-0.5) mg/dl Total Protein (6.0-8.3) gm/dl Albumin (3.4-5.0) gm/dl Globulin (2.5-4.0) gm/dl Albumin/Globulin Ratio (0.9-2) Procalcitonin (0-0.5) ng/ml TSH (0.300-4.500) uIu/ml Urine Color Urine Appearance (Clear) Urine pH (4.5-7.5) Ur Specific [place] (1.000-1.030) Urine Protein (Negative) Urine Glucose (UA) (Negative) Urine Ketones (Negative) Urine Blood (Negative) Urine Nitrite (Negative) Urine Bilirubin (Negative) Urine Urobilinogen (Negative) Ur Leukocyte Esterase (Negative) Urine WBC (Auto) (0-5) /hpf Urine RBC (Auto) (0-4) /hpf U Hyaline Cast (Auto) (0-5) /lpf U Epithel Cells (Auto) (0-5) /lpf Urine Bacteria (Auto) (Negative) Lyme Disease IgG Ab (Negative) Lyme Disease IgM Ab (Negative) SARS-CoV-2, RNA, NAAT (NEGATIVE) Administered Medications Discontinued Medications Sodium Chloride (Nss) 500 mls @ 999 mls/hr IV .Q31M ELIAS Stop: 04/26/22 14:45 Last Admin: 04/26/22 15:37 Dose: 999 mls/hr Documented By: [facility] Ondansetron HCl (Ondansetron Inj 2 Mg/Ml 2 Ml Vial) 4 mg IV NOW STA Stop: 04/26/22 17:35 Last Admin: 04/26/22 17:45 Dose: 4 mg Documented By: [facility] Imaging Data Radiologist's Impression: Chest X-Ray 04/26/22 14:03 XR chest 1V portable CLINICAL HISTORY: palpitations TECHNIQUE: Single frontal radiograph of the chest was obtained. Comparison: Comparison is made to chest radiograph 02/03/2022 FINDINGS: No lines and tubes are seen. Calcified aortic knob is seen. Prominence and cephalization of the vasculature is seen. No evidence of pleural effusion or pneumothorax. IMPRESSION: Mild pulmonary edema. ACT 112: Negative or not required by law. Electronically signed by: Kashmir Paige M.D. 04/26/2022 2:[address] 04/26/22 14:03 CT head/brain wo con CLINICAL HISTORY: confusion Technique: Contiguous axial CT images of the head were acquired from the base of the skull to the vertex without intravenous contrast administration. Images were viewed in brain, subdural and bone windows. Automated dose lowering techniques and/or adjustment according to patient size were utilized for this exam. Comparison: Comparison is made to CT head 02/03/2022 Findings: Areas of decreased attenuation are present in the periventricular and subcortical white matter bilaterally consistent with small vessel ischemic disease. Generalized cerebral atrophy with commensurate enlargement of the ventricles, sulci, and cisterns is also present. There is no acute intracranial hemorrhage or evidence of acute territorial infarction. No shift of the midline structures, mass effect, or extra-axial abnormalities are shown. Atherosclerotic calcifications are present in the intracranial segments of the internal carotid arteries. Imaged portions of the paranasal sinuses and mastoid air cells are clear. The orbits appear normal. There are no acute fractures of the calvaria or scalp swelling. Impression: No acute intracranial hemorrhage, no evidence of acute territorial infarction or other acute intracranial disease process. ACT 112: Negative or not required by law. Electronically signed by: Kashmir Paige M.D. 04/26/2022 3:[address] 04/26/22 17:32 CT SCAN OF THE CERVICAL SPINE CLINICAL HISTORY: Fall. COMPARISON STUDY: No priors. TECHNIQUE: CT scan of the cervical spine is performed from the skull base to the upper thoracic spine. Images are reviewed in the axial, sagittal, and coronal planes. IV contrast was not administered for this examination. A dose lowering technique was utilized adhering to the principles of ALARA. CT DOSE: 1208.07 mGy.cm FINDINGS: Skeletal structures: The skeletal structures are heterogeneously osteopenic. There is no evidence of fracture or subluxation involving the cervical spine. Vertebral body height and alignment are maintained. There is straightening of the cervical lordosis. Anterior osteophytes are seen throughout. The odontoid process and lateral masses are intact. The atlantoaxial articulation is preserved noting productive degenerative change. The spinous processes appear intact. There is [id number] multilevel facet arthropathy. Intervertebral discs: There is moderate to severe disc space narrowing at all cervical levels between C3-C4 and C7-T1. Central canal: Posterior disc osteophyte complexes are seen at all cervical levels between C3-C4 and C6-C7. This likely contributes to multilevel acquired compromise of the central canal. Soft tissues: The prevertebral and paraspinous soft tissues are within normal limits. Calvarium: The visualized calvarium at the skull base appears intact. Brain parenchyma: Partially visualized brain parenchyma at the skull base is within normal limits. Sinuses and mastoids: There is mild mucosal thickening within the maxillary antra. Trace mucosal thickening is seen in the right sphenoid sinus. The mastoid air cells are well pneumatized. Cerumen is noted in the external canals. Lung apices: Clear as visualized. IMPRESSION: There is no evidence of fracture or subluxation involving the cervical spine. ACT 112: Negative or not required by law. Electronically signed by: Axel Helton M.D. 04/26/2022 5:[address] 04/26/22 17:32 CT SCAN OF THE BRAIN WITHOUT IV CONTRAST CLINICAL HISTORY: Fall. COMPARISON STUDY: CT of the brain performed earlier the same day at 04/26/2022. TECHNIQUE: Unenhanced axial CT scan of the brain is performed from the vertex to the skull base. A dose lowering technique was utilized adhering to the principles of ALARA. The skull base was scanned twice due to motion artifact. FINDINGS: Brain parenchyma: There is age-related involutional change noting mild subcortical and periventricular microangiopathic disease. There is no hemorrhage, mass effect, or evidence of acute territorial ischemia by CT criteria. Parker-white matter differentiation is preserved. No extra-axial fluid collection is seen. Ventricles, sulci, cisterns: Prominent secondary to involutional change. Intracranial vasculature: There is atherosclerotic calcification of the cavernous carotid and vertebral arteries. Calvarium: The skeletal structures are heterogeneously osteopenic. No depressed calvarial fracture is identified. Sinuses and mastoids: There is mild mucosal thickening within the maxillary antra. Trace mucosal thickening is noted in the right sphenoid sinus. The mastoid air cells are well pneumatized. Cerumen is noted in the external auditory canals. Orbits: The bony orbits are grossly intact. IMPRESSION: No acute intracranial abnormality. No change from today's earlier examination. ACT 112: Negative or not required by law. Electronically signed by: Axel Helton M.D. 04/26/2022 6:02 PM Discharge Plan Visit Data Chief Complaint: Hypoglycemia ED Provider: Demond Perdomo Discharge Problem: Acute alteration in mental status, Acute confusion, Hypoglycemia Patient Disposition: Admitted As Inpatient Discharge Instructions Interventions: ED Discharge Assessment Last Done: 04/26/22 21:35
[2022-04-26] MEDS ORDERED: SODIUM CHLORIDE 0.9% 500 ML IV SCH (14:15)
--- NOTE | 2022-04-26 14:38 | XRay Report ---
XR chest 1V portable CLINICAL HISTORY: palpitations TECHNIQUE: Single frontal radiograph of the chest was obtained. Comparison: Comparison is made to chest radiograph 02/03/2022 FINDINGS: No lines and tubes are seen. Calcified aortic knob is seen. Prominence and cephalization of the vascu lature is seen. No evidence of pleural effusion or pneumothorax. IMPRESSION: Mild pulmonary edema. ACT 112: Negative or not required by law. Electronically signed by: Kashmir Paige M.D. 04/26/2022 2:36 PM
[2022-04-26 15:00] LABS: Hematocrit (blood only) 35.4 % (34.1-44.9); Hemoglobin 11.5 g/dl (12.0-16.0); Mean Corpuscular Hemoglobin 30.6 pg (25.0-34.0); Mean Corpuscular Hgb Conc 32.5 g/dL (32.0-36.0); Mean Corpuscular Volume 94.1 fL (80.0-100.0); Mean Platelet Volume 10.6 fL (9.4-12.3); Platelet Count 138 K/uL (130-400); RDW Coefficient of Variation 13.4 % (11.5-14.5); RDW Standard Deviation 46.5 fL (36.4-46.3); Red Blood Count 3.76 M/uL (3.93-5.22); White Blood Count 2.02 K/ul (4.8-10.8)
[2022-04-26 15:09] LABS: INR 1.2 (0.9-1.1); Partial Thromboplastin Ratio 1.2; Partial Thromboplastin Time 32.5 Seconds (21.0-31.0); Prothrombin Time 12.9 Seconds (9.0-12.0)
--- NOTE | 2022-04-26 15:11 | CT Scan Report ---
CT head/brain wo con CLINICAL HISTORY: confusion Technique: Contiguous axial CT images of the head were acquired from the base of the skull to the kofi angelica without intravenous contrast administration. Images were viewed in brain, subdural and [facility]. Automated dose lowering techniques and/or adjustment according to patient size were utilized for this exam. Comparison: Comparison is made to CT head 02/03/2022 Findings: Areas of decreased attenuation are present in the periventricular and subcortical white matter bilate rally consistent with small vessel ischemic disease. Generalized cerebral atrophy with commensurate e nlargement of the ventricles, sulci, and cisterns is also present. There is no acute intracranial hem orrhage or evidence of acute territorial infarction. No shift of the midline structures, mass effect, or extra-axial abnormalities are shown. Atherosclerotic calcifications are present in the intracran ial segments of the internal carotid arteries. Imaged portions of the paranasal sinuses and mastoid air cells are clear. The orbits appear normal. There are no acute fractures of the calvaria or scalp swelling. Impression: No acute intracranial hemorrhage, no evidence of acute territorial infarction or other acute intracra nial disease process. ACT 112: Negative or not required by law. Electronically signed by: Kashmir Paige M.D. 04/26/2022 3:10 PM
[2022-04-26 15:31] LABS: Troponin I High Sensitivity 22.7 pg/ml (0-14)
[2022-04-26 15:45] LABS: Albumin Globulin Ratio 1.1 (0.9-2); Albumin Level 3.6 gm/dl (3.4-5.0); Bilirubin,Total 1.5 mg/dl (0.2-1.0); C Reactive Protein 5.44 mg/dl (0-0.5); Calcium 8.2 mg/dl (8.5-10.1); Creatinine Clr Calc Pharmacy 56.3 ml/min; Est GFR (Non-African American) 84.6 ml/min; Globulin 3.3 gm/dl (2.5-4.0); Magnesium 1.9 mg/dl (1.7-2.4); Potassium 3.6 mmol/L (3.5-5.1); Total Protein 6.9 gm/dl (6.0-8.3)
[2022-04-26 15:57] LABS: Basophils # (auto) 0.03 K/uL (0-0.2); Basophils % (auto) 1.5 %; Eosinophils # (auto) 0.08 K/uL (0-0.50); Immature Granulocytes # (auto) 0.01 K/uL (0.00-0.02); Immature Granulocytes % (auto) 0.5 %; Lymphocytes # (auto) 0.54 K/uL (1.2-3.4); Lymphocytes % (auto) 26.7 %; Monocytes % (auto) 9.9 %; Neutrophils # (auto) 1.16 K/uL (1.4-6.5); Neutrophils % (auto) 57.4 %
[2022-04-26 16:46] LABS: Appearance Urine Clear (Clear); Bacteria Urine Automated Negative (Negative); Bilirubin Urine Negative (Negative); Blood Urine 1+ (Negative); Color Urine Yellow; Glucose Urine UA 2+ (Negative); Ketones Urine 1+ (Negative); Leukocyte Esterase Urine Negative (Negative); Nitrite Urine Negative (Negative); Protein Urine Negative (Negative); Specific Gravity Urine 1.016 (1.000-1.030); Urobilinogen Urine Negative (Negative); pH Urine 5.5 (4.5-7.5)
[2022-04-26] MEDS ORDERED: ONDANSETRON INJ 2 MG/ML 2 ML VIAL IV STA (17:34)
--- NOTE | 2022-04-26 18:00 | CT Scan Report ---
CT SCAN OF THE CERVICAL SPINE CLINICAL HISTORY: Fall. COMPARISON STUDY: No priors. TECHNIQUE: CT scan of the cervical spine is performed from the skull base to the upper thoracic spine . Images are reviewed in the axial, sagittal, and coronal planes. IV contrast was not administered fo r this examination. A dose lowering technique was utilized adhering to the principles of ALARA. CT DOSE: 1208.07 mGy.cm FINDINGS: Skeletal structures: The skeletal structures are heterogeneously osteopenic. There is no evidence of fracture or subluxation involving the cervical spine. Vertebral body height and alignment are maintai ronaldo. There is straightening of the cervical lordosis. Anterior osteophytes are seen throughout. The o dontoid process and lateral masses are intact. The atlantoaxial articulation is preserved noting prod uctive degenerative change. The spinous processes appear intact. There is dthw-xn-zsotwgef multilevel facet arthropathy. Intervertebral discs: There is moderate to severe disc space narrowing at all cervical levels between C3-C4 and C7-T1. Central canal: Posterior disc osteophyte complexes are seen at all cervical levels between C3-C4 and C6-C7. This likely contributes to multilevel acquired compromise of the central canal. Soft tissues: The prevertebral and paraspinous soft tissues are within normal limits. Calvarium: The visualized calvarium at the skull base appears intact. Brain parenchyma: Partially visualized brain parenchyma at the skull base is within normal limits. Sinuses and mastoids: There is mild mucosal thickening within the maxillary antra. Trace mucosal thic kening is seen in the right sphenoid sinus. The mastoid air cells are well pneumatized. Cerumen is no selene in the external canals. Lung apices: Clear as visualized. IMPRESSION: There is no evidence of fracture or subluxation involving the cervical spine. ACT 112: Negative or not required by law. Electronically signed by: Axel Helton M.D. 04/26/2022 5:58 PM
--- NOTE | 2022-04-26 18:04 | CT Scan Report ---
CT SCAN OF THE BRAIN WITHOUT IV CONTRAST CLINICAL HISTORY: Fall. COMPARISON STUDY: CT of the brain performed earlier the same day at 04/26/2022. TECHNIQUE: Unenhanced axial CT scan of the brain is performed from the vertex to the skull base. A do se lowering technique was utilized adhering to the principles of ALARA. The skull base was scanned tw ice due to motion artifact. FINDINGS: Brain parenchyma: There is age-related involutional change noting mild subcortical and periventricula r microangiopathic disease. There is no hemorrhage, mass effect, or evidence of acute territorial isc hemia by CT criteria. Parker-white matter differentiation is preserved. No extra-axial fluid collection is seen. Ventricles, sulci, cisterns: Prominent secondary to involutional change. Intracranial vasculature: There is atherosclerotic calcification of the cavernous carotid and vertebr al arteries. Calvarium: The skeletal structures are heterogeneously osteopenic. No depressed calvarial fracture is identified. Sinuses and mastoids: There is mild mucosal thickening within the maxillary antra. Trace mucosal thic kening is noted in the right sphenoid sinus. The mastoid air cells are well pneumatized. Cerumen is n oted in the external auditory canals. Orbits: The bony orbits are grossly intact. IMPRESSION: No acute intracranial abnormality. No change from today's earlier examination. ACT 112: Negative or not required by law. Electronically signed by: Axel Helton M.D. 04/26/2022 6:02 PM
--- NOTE | 2022-04-26 18:55 | History & Physical Report ---
Date of Service April 26, 2022 Assessment & Plan (1) Confusion: Plan: Altered mental status Pleasant/redirectable, but acutely confused which is reportedly a wright deviation from baseline. No prior history of dementia. Not oriented to year or place. No strength deficits, no rash. With elevated CRP/ESR. GUS and reflex panel pending No leukocytosis No obvious urinary, pulmonary infectious source or symptoms COVID is negative TSH is normal Given strict deviation from baseline and persistent symptoms without clear cause we will follow-up with MRI. Defer LP at this time. No meningeal symptoms Lyme pending Calcium is normal N.p.o. at midnight in case lumbar puncture is desired Hyperglycemia Unclear cause, no history of insulinoma. No history of diabetes. Improved, on recheck BSG's 150s. Trend Hypothyroidism TSH normal Continue Synthroid Asthma Continue albuterol as needed, no wheezing at time of assessment DVT prophylaxis: SCDs, Lovenox Diet: N.p.o. at midnight Disposition: Medical/telemetry, no cardiac/respiratory symptoms or hemodynamic instability CODE STATUS: Full code (2) Hypothyroidism: (3) Hyperlipidemia: (4) Benign hypertension: (5) Asthma: History of Present Illness Primary Care Provider: Lavonne Nevarez MD Confused BSG in field 30 1 AMP d50 --> improved, appropriate and oriented Hypothyroidism --> TSH wnl Is not diabetic, Over last hour pt with increased confusion. CT-H --> naf. CRP elevated 5.44 trop 22.7 No UTI, NO evidence of PNA, covid/flu negative Domenica is an 81-year-old female with a past medical history of hypothyroidism, UTI, hyperlipidemia, asthma, and multiple myeloma who presents with acute confusion. Per ER report patient had a blood sugar of 30 which improved after an amp of D50 with some improvement of confusion, but over observation of several hours in the ER patient was continuing to act confused, wandering to bathrooms with explanations of why, attempting to remove IVs and generally with difficulty to redirect. This is a deviation from her normal baseline per family, although notes has seemed more confused at least over the last week. No fevers/chills noted, no leukocytosis, COVID/flu was negative but patient does have elevated ESR/CRP. Patient has a history of multiple myeloma. No gross electrolyte derangements. No urinary symptoms. Recommended for observation for continued confusion. She is seen at bedside, history is limited by confusion. She is pleasant and redirectable, but is not oriented to care and is not a good historian. She does not remember coming into the hospital, or why she is there. Denies fever, chills, sweats, pain in any current symptoms but is very limited by pleasant confusion which limits HPI. No family at bedside, call to primary contact to voicemail. Allergies Allergy/AdvReac Type Severity Reaction Status Date / Time iodine Allergy Mild SPOTS Verified 03/03/22 08:47 BEHIND EARS,HEAVINESS IN LEGS AND ARMS X'S 24 HOURS clams Allergy Verified 03/03/22 08:47 Home Medications Medication Instructions Recorded Confirmed Type aspirin 81 mg tablet,delayed 81 mg PO DAILY 10/18/18 03/03/22 History release (Noel Low Dose Aspirin) calcium carbonate 500 mg-vitamin 1 tab PO DAILY 10/18/18 03/03/22 History D3 5 mcg (200 unit) tablet (Calcium 500 + D) albuterol sulfate 90 mcg/actuation See Rx Instructions inhalation 10/25/18 03/03/22 History aerosol inhaler (ProAir HFA) .COMPLEX PRN Shortness Of Breath ferrous sulfate 325 mg (65 mg 325 mg PO DAILY 10/25/18 03/03/22 History iron) tablet (FeroSul) denosumab 120 mg/1.7 mL (70 mg/mL) 120 mg subcut UD 01/28/19 03/03/22 History subcutaneous solution (Xgeva) levothyroxine 75 mcg tablet 75 mcg PO DAILYBB 30 days #30 tabs 04/01/22 Rx (Synthroid) Past Med/Surg History Medical History COVID-19 Fall Hypersensitivity reaction Hypoxia Pneumonia Surgical History H/O removal of cyst Family History Mother Hypertension Brother Colon cancer Father Stroke Denies family history of Ovarian cancer Prostate cancer Diabetes Myocardial infarction Breast cancer Social History Smoking Status: Never smoker Second Hand Exposure: No; Hx Alcohol Use: No Hx Substance Use: No Preferred Language: Nepali Communication Ability: Effective Copy Editor Required: No Beliefs That Will Affect Care: None marital status: Current Living Situation: Spouse current occupational status: retired Feels Safe at Home: Yes caffeine: No Dental Care, Regularly: Yes Physical Activity Frequency: Does not Exercise Seatbelt Use: always Sunscreen Use: Yes Assistive Devices: Walker Review of Systems Review of Systems: Unobtainable due to cognitive status Physical Exam Physical Exam: General: Oriented to name only. No rash. HEENT: Atraumatic, normocephalic. Vision/hearing intact. Pulm: CTAB A&P. -wheezes, -rales, -rhonchi. Symmetrical chest rise. No increased work of breathing. No respiratory distress. Cardiac: RRR, -mrg. Radial pulses intact and symmetrical. Abdominal: Nontender, nondistended, soft. BS present. Neuro: Sensation intact in hands and feet to soft touch. No focal strength deficits. Vision/hearing intact. Kernig/Brezinski's negative. No nuchal rigidity or tenderness. No photosensitivity. Results & Data Results & Data ([facility]) Vital Signs (Past 12 Hours) Vital Signs Temp Pulse Resp BP Pulse Ox O2 Del Method 04/26/22 16:00 90 24 91 04/26/22 16:00 134/76 04/26/22 14:41 36.7 C 94 H 16 157/90 H 95 Room Air PG Care Time/CCT Total # of Minutes Spent Total Time Spent with Patient: Total time spent is greater than 50% in coordination of care (as documented) at patient's floor/unit and/or counseling patient: Coding Level of Care Code INT OBSERVATION CARE 50M LVL 2 Diagnoses Confusion R41.0 Hypothyroidism E03.9 Hyperlipidemia E78.5 Benign hypertension I10 Asthma J45.909
[2022-04-26] MEDS ORDERED: GLUCOSE 40% GEL 15 GM TUBE PO PRN (21:33)
[2022-04-26] MEDS ORDERED: GLUCOSE 10 TAB/TUBE PO PRN (21:33)
[2022-04-26] MEDS ORDERED: CARBOHYDRATES FOR HYPOGLYCEMIA PO PRN (21:33)
[2022-04-26] MEDS ORDERED: DEXTROSE 50% 50 ML SYRINGE IV PRN (21:33)
[2022-04-26] MEDS ORDERED: ALBUTEROL HFA 8 GM INHALER INH PRN (21:33)
[2022-04-26] MEDS ORDERED: GLUCAGON FOR INJ 1 MG VIAL SQ PRN (21:33)
[2022-04-26 22:06] LABS: Lyme Ab IgM w/WB Rflx Negative (Negative)
[2022-04-26 22:14] LABS: Lyme Ab IgG w/WB Rflx Positive (Negative)
[2022-04-27 05:23] LABS: Hematocrit (blood only) 36.9 % (34.1-44.9); Hemoglobin 11.9 g/dl (12.0-16.0); Mean Corpuscular Hemoglobin 30.5 pg (25.0-34.0); Mean Corpuscular Hgb Conc 32.2 g/dL (32.0-36.0); Mean Corpuscular Volume 94.6 fL (80.0-100.0); Mean Platelet Volume 10.6 fL (9.4-12.3); Platelet Count 121 K/uL (130-400); RDW Coefficient of Variation 13.6 % (11.5-14.5); RDW Standard Deviation 47.3 fL (36.4-46.3)
[2022-04-27 05:24] LABS: Basophils # (auto) 0.04 K/uL (0-0.2); Basophils % (auto) 0.9 %; Eosinophils # (auto) 0.05 K/uL (0-0.50); Eosinophils % (auto) 1.1 %; Immature Granulocytes # (auto) 0.01 K/uL (0.00-0.02); Immature Granulocytes % (auto) 0.2 %; Lymphocytes # (auto) 0.87 K/uL (1.2-3.4); Lymphocytes % (auto) 19.3 %; Monocytes # (auto) 0.59 K/uL (0.24-0.82); Monocytes % (auto) 13.1 %; Neutrophils # (auto) 2.94 K/uL (1.4-6.5); Neutrophils % (auto) 65.4 %; Platelet Estimate Decreased (Normal)
[2022-04-27 05:27] LABS: BUN Creatinine Ratio 17.9 (10-20); Calcium 7.6 mg/dl (8.5-10.1); Creatinine Clr Calc Pharmacy 52.1 ml/min; Est GFR (African American) 95.5 ml/min; Est GFR (Non-African American) 82.4 ml/min; Potassium 4.5 mmol/L (3.5-5.1)
[2022-04-27] MEDS: LEVOTHYROXINE SODIUM 75 MCG TABLET PO SCH (06:37)
[2022-04-27] MEDS: ASPIRIN 81 MG ECTAB PO SCH (08:09)
[2022-04-27] MEDS: D5W AND NSS 1,000 ML IV SCH ×2 (09:12→22:49)
[2022-04-27] MEDS ORDERED: SODIUM CHLORIDE 0.9% 1000ML 500 ML IV ONE (09:21)
[2022-04-27 10:18] LABS: Adenovirus PCR Not Detected (NotDetected); Bordetella parapertussis PCR Not Detected (NotDetected); Bordetella pertussis PCR Not Detected (NotDetected); Chlamydia pneumoniae PCR Not Detected (NotDetected); Coronavirus 229E PCR Not Detected (NotDetected); Coronavirus CoV-2 (COVID19)PCR Not Detected (NotDetected); Coronavirus HKU1 PCR Not Detected (NotDetected); Coronavirus NL63 PCR Not Detected (NotDetected); Coronavirus OC43PCR Not Detected (NotDetected); Human Metapneumovirus PCR Not Detected (NotDetected); Influenza A PCR Not Detected (NotDetected); Influenza B PCR Not Detected (NotDetected); Mycoplasma pneumoniae PCR Not Detected (NotDetected); Parainfluenza Virus 1 PCR Not Detected (NotDetected); Parainfluenza Virus 2 PCR Not Detected (NotDetected); Parainfluenza Virus 3 PCR Not Detected (NotDetected); Parainfluenza Virus 4 PCR Not Detected (NotDetected); Respiratory Syncytial VirusPCR Not Detected (NotDetected); Rhinovirus/Enterovirus PCR Not Detected (NotDetected)
--- NOTE | 2022-04-27 10:37 | Magnetic Resonance Report ---
MRI OF THE BRAIN WITHOUT IV CONTRAST CLINICAL HISTORY: Change in mental status. COMPARISON STUDY: CT of the brain dated 04/26/2022. TECHNIQUE: MRI of the brain was performed utilizing various T1 and T2-weighted sequences in the axial , sagittal, and coronal planes. IV contrast was not administered for this examination. FINDINGS: Brain parenchyma: There is age-related involutional change noting mild subcortical and periventricula r microangiopathic disease. There is no hemorrhage or mass effect. There is no restricted diffusion t o suggest acute ischemia. Parker-white matter differentiation is preserved. No extra-axial fluid collec tion is seen. The cerebellar tonsils are normal in configuration. Ventricles, sulci, and cisterns: Prominent secondary to additional change. Pituitary and sella: Partially empty sella is incidentally noted. Intracranial vasculature: Normal flow voids are maintained at the skull base. Orbits: The bony orbits are grossly intact. Orbital contents are normal in appearance. Sinuses and mastoids: There is mild mucosal thickening within the maxillary antra. The remaining para nasal sinuses are clear. There is trace left mastoid effusion. Calvarium: Unremarkable. Cervical cord: Partially visualized cervical spinal cord is normal in morphology and signal intensity . IMPRESSION: No acute intracranial abnormality. ACT 112: Negative or not required by law. Electronically signed by: Axel Helton M.D. 04/27/2022 10:36 AM
--- NOTE | 2022-04-27 12:47 | Electrocardiogram Report ---
Test Reason : Blood Pressure : / mmHG Vent. Rate : 127 BPM Atrial Rate : 085 BPM P-R Int : 104 ms QRS Dur : 072 ms QT Int : 344 ms P-R-T Axes : 000 -66 093 degrees QTc Int : 499 ms Poor data quality, interpretation may be adversely affected Low voltage QRS likely sinus rhythm with PACs Left axis deviation Abnormal ECG When compared with ECG of 03-FEB-2022 10:08, ST now depressed in Inferior leads Confirmed by Justin Perez ([id number]) on 04/27/2022 12:47:10 PM Referred By: REFERRED SELF Confirmed By:Rohith Perez
--- NOTE | 2022-04-27 12:48 | Electrocardiogram Report ---
Test Reason : Blood Pressure : / mmHG Vent. Rate : 086 BPM Atrial Rate : 086 BPM P-R Int : 178 ms QRS Dur : 078 ms QT Int : 382 ms P-R-T Axes : 076 -45 -80 degrees QTc Int : 457 ms Poor data quality, interpretation may be adversely affected Normal sinus rhythm Left axis deviation Abnormal ECG Confirmed by Justin Perez ([id number]) on 04/27/2022 12:47:58 PM Referred By: REFERRED SELF Confirmed By:Rohith Perez
[2022-04-27] MEDS ORDERED: HEPARIN SODIUM/DEXTROSE 25,000 UNITS/500 ML BAG IV SCH (13:30)
[2022-04-27] MEDS ORDERED: Heparin IV Adult Wt-Based Low-Dose *NO* Bolus Protocol IV STA (13:34)
[2022-04-27] MEDS ORDERED: dexAMETHasone 4 MG in SYRINGE 0 ML IV ONE ×2 (13:45→20:30)
[2022-04-27] MEDS: cefTRIAXone SODIUM 1,000 MG in DEXTROSE 5% AD-VAN 50 ML IV SCH (14:09)
--- NOTE | 2022-04-27 14:14 | XRay Report ---
SINGLE VIEW CHEST CLINICAL HISTORY: Hypoxia. Change in mental status. FINDINGS: An AP, portable, upright chest radiograph is compared to study dated 04/26/2022 and correla selene with PET/CT dated 09/26/2019. The examination is degraded by portable technique and patient rotati on. The heart is mildly enlarged noting atherosclerotic calcification of the thoracic aorta. The pul monary vasculature is noncongested. Chronic interstitial thickening is similar to previous. The lungs and pleural spaces are clear noting mild bibasilar atelectasis. No pneumothorax is seen. The skeleta l structures are osteopenic. The bony thorax is grossly intact. Degenerative change and scoliosis is noted in the spine. IMPRESSION: Mild cardiac enlargement with no acute cardiopulmonary abnormality identified. ACT 112: Negative or not required by law. Electronically signed by: Axel Helton M.D. 04/27/2022 2:12 PM
--- NOTE | 2022-04-27 14:21 | Hospitalist Progress Note ---
Date of Service April 27, 2022 Assessment & Plan (1) Hypoglycemia: Plan: suspect 2nd to adrenal insufficiency - new dx. started dexamethasone 4mg TID. started dextrose-containing fluids. serial BSGs. likely cause of initial confusion at her home as BSG in the field was 30 by report. (2) Hypotension: Plan: suspect 2nd to adrenal insufficiency. can't rule out sepsis but doubt. gave fluid bolus x 1 followed by generous maintenance fluids. moved patient from 3rd floor to PCU/tele. follow BPs carefully. doubt hypotension is from cardiac causes - EF preserved on echo. (3) Elevated troponin: Plan: peak HS trop - 8000 presenting trop was very low the troponin pattern is c/w injury pattern echo ordered - WMA noted I consulted Dr Perez from cardiology - he plans to perform diagnostic heart cath tomorrow started heparin drip - low dose protocol cont asa 81mg daily BPs too low for beta ari check lipids while here if CAD is confirmed (4) Confusion: Plan: 2nd to hypoglycemia 2nd to hypotension can't rule out metabolic from ?lyme disease? treat low sugar treat low BP rocephin (5) Adrenal insufficiency: Plan: cortisol level 5 given low glucose, low BPs, etc - clinical picture most c/w such started dexamethasone 4mg TID (selected this as dex will not interfere with cosyntropin stim test assay) check ACTH in am perform cosyntropin stim test later in the stay for confirmation of dx but adrenal insufficiency seems likely BPs already improved with the above (6) Positive Lyme disease serology: Plan: treated for Lyme in 2018 IgG +, IgM neg If Lyme is present it is chronic in light of confusing nature of her presentation will cover with rocephin to be on safe side Shannan blot pending (7) Hypothyroidism: Plan: TSH wnl cont levothyroxine 75mcg daily (8) Hyperlipidemia: Plan: was not on meds for such on home check lipids while here and Rx if CAD is confirmed (9) Benign hypertension: Plan: now with hypotension - see above not on BP meds at home (10) Asthma: Plan: no flare at this time (11) Abnormal EKG: Plan: ST segment depression V4-V6 in light of elevated troponins and echo findings - concerning for CAD diagnostic cath tomorrow heparin drip in meantime (12) Multiple myeloma: Plan: known history but no Rx since 2019 based on records from [facility] heme/onc (13) Pancytopenia: Plan: 2nd to #12?? cbc in am (14) Hyponatremia: Plan: likely from volume depletion from adrenal insufficiency should improve with isotonic fluids bmp am Plan left message for pt's on voicemail this evening total critical care time 80 minutes as persistent hypoglycemia and hypotension along with concern for NSTEMI posed multiple life threatening problems complex care coordination patient moved from 3east to PCU Admission and Anticipated Discharge Date Admission Date: April 27, 2022 Subjective patient continues with hypoglycemia requiring institution of dextrose infusion due to low BP this am gave IV fluid bolus & then maintenance fluids after that cortisol level only 5 --> started dexamethasone IV during the visit the patient was lying flat in bed comfortably she denied ALL complaints - no cp, dyspnea, abd pain, nausea, emesis, sweats, fevers, chills, etc she was surprisingly oriented x 3 she did not volunteer information on her own - needed considerable prompting she simply stared at me the whole time she did [place] does go for hikes in the [place], etc over the last few months patient denies excessive fatigue, cp, dyspnea she does state "I've been tired ever since they diagnosed me with thyroid" she did confirm history of multiple myeloma - saw [facility] oncology early in April - note from that encounter reviewed; no active Rx for MM since 2018 no recent steroids was treated for Lyme disease in 09/2017 Review of Systems Review of Systems: gen - no fevers, chills, sweats, diaphoresis cv - NO CHEST PAIN; no orthopnea pulm - no cough, no wheeze, no dyspnea GI - no abd pain/N/V - no dysuria musculo - denies myalgias skin - no rash Physical Exam Physical Exam: gen - thin, seems confused although a/o x 3; would stare at me and offer little history unless prompted mouth - MM dry neck - no JVD heart - RRR, s1 s2, no murmur lungs - CTA b/l abd - soft NT ND BS+; no HSM ext - no edema, pulses 2+ b/l skin - no rash Results & Data Results & Data ([facility]) Vital Signs (Past 12 Hours) Vital Signs Temp Pulse Pulse Pulse Resp BP BP 04/27/22 13:40 70 16 97/57 L 04/27/22 12:34 36.7 C 70 16 90/50 L 04/27/22 10:56 37 C 75 16 93/57 L 04/27/22 09:02 36.9 C 75 16 86/49 L 04/27/22 07:46 37 C 77 16 87/56 L 04/27/22 07:14 58 L 16 95/56 L 04/27/22 06:00 73 24 97/46 L 04/27/22 05:00 98/58 L 04/27/22 04:00 68 24 100/57 L 04/27/22 05:22 04/27/22 03:30 65 24 102/55 L 04/27/22 03:00 78 17 98/58 L 04/27/22 02:30 77 24 102/58 L Pulse Ox O2 Del Method O2 Flow Rate 04/27/22 13:40 91 Room Air 04/27/22 12:34 96 Nasal Cannula 1 04/27/22 10:56 90 Room Air 04/27/22 09:02 96 Room Air 04/27/22 07:46 91 Room Air 04/27/22 07:14 98 Room Air 04/27/22 06:00 98 Nasal Cannula 2 04/27/22 05:00 04/27/22 04:00 97 Nasal Cannula 2 04/27/22 05:22 Nasal Cannula 2 04/27/22 03:30 04/27/22 03:00 04/27/22 02:30 Laboratory Results Laboratory Results - last 24 hr 04/26/22 04/26/22 04/26/22 14:16 14:34 14:34 WBC 2.02 L RBC 3.76 L Hgb 11.5 L Hct 35.4 MCV 94.1 MCH 30.6 MCHC 32.5 RDW Std Deviation 46.5 H RDW Coeff of Yanick 13.4 Plt Count 138 MPV 10.6 Immature Gran % (Auto) 0.5 Neut % (Auto) 57.4 Lymph % (Auto) 26.7 Richardson % (Auto) 9.9 Eos % (Auto) 4.0 Baso % (Auto) 1.5 Neut # (Auto) 1.16 L Lymph # (Auto) 0.54 L Richardson # (Auto) 0.20 L Eos # (Auto) 0.08 Baso # (Auto) 0.03 Immature Gran # (Auto) 0.01 Platelet Estimate ESR Serum Viscosity PT 12.9 H INR 1.2 H APTT 32.5 H PTT Ratio 1.2 Sodium Potassium Chloride Carbon Dioxide Anion Gap BUN Creatinine Est Cr Clr Drug Dosing Est GFR ( Amer) Est GFR (Non-Af Amer) BUN/Creatinine Ratio Glucose POC Glucose Calcium Magnesium Total Bilirubin AST ALT Alkaline Phosphatase Total Creatine Kinase Troponin I High Sens C-Reactive Protein Total Protein Albumin Globulin Albumin/Globulin Ratio Procalcitonin TSH Random Cortisol Urine Color Urine Appearance Urine pH Ur Specific [place] Urine Protein Urine Glucose (UA) Urine Ketones Urine Blood Urine Nitrite Urine Bilirubin Urine Urobilinogen Ur Leukocyte Esterase Urine WBC (Auto) Urine RBC (Auto) U Hyaline Cast (Auto) U Epithel Cells (Auto) Urine Bacteria (Auto) GUS Screen Adenovirus (PCR) B. pertussis DNA (PCR) B.parapertussis DNA PCR Lyme Disease IgG Ab Lyme IgG (Western Blot) Lyme IgG 18 kDa Band Lyme IgG 23 kDa Band Lyme IgG 28 kDa Band Lyme IgG 30 kDa Band Lyme IgG 39 kDa Band Lyme IgG 41 kDa Band Lyme IgG 45 kDa Band Lyme IgG 58 kDa Band Lyme IgG 66 kDa Band Lyme IgG 93 kDa Band Lyme IgM Ab (WB) Lyme Disease IgM Ab Lyme IgM 23 kDa Band Lyme IgM 39 kDa Band Lyme IgM 41 kDa Band C. pneumoniae DNA (PCR) Coronavirus OC43 (PCR) Coronavirus HKU1 (PCR) Coronavirus 229E (PCR) SARS-CoV-2 (PCR) Coronavirus NL63 (PCR) Human Metapneumovir PCR Influenza Type A (PCR) Influenza Type B (PCR) M. pneumoniae (PCR) Parainfluenza 1 (PCR) Parainfluenza 2 (PCR) Parainfluenza 3 (PCR) Parainfluenza 4 (PCR) RSV (PCR) Entero/Rhino (PCR) SARS-CoV-2, RNA, NAAT NEGATIVE 04/26/22 04/26/22 04/26/22 14:34 14:34 14:34 WBC RBC Hgb Hct MCV MCH MCHC RDW Std Deviation RDW Coeff of Yanick Plt Count MPV Immature Gran % (Auto) Neut % (Auto) Lymph % (Auto) Richardson % (Auto) Eos % (Auto) Baso % (Auto) Neut # (Auto) Lymph # (Auto) Richardson # (Auto) Eos # (Auto) Baso # (Auto) Immature Gran # (Auto) Platelet Estimate ESR 61 H Serum Viscosity PT INR APTT PTT Ratio Sodium 133 L Potassium 3.6 Chloride 101 Carbon Dioxide 25 Anion Gap 7 BUN 13 Creatinine 0.62 Est Cr Clr Drug Dosing 56.3 Est GFR ( Amer) 98.0 Est GFR (Non-Af Amer) 84.6 BUN/Creatinine Ratio 21.0 H Glucose 155 H POC Glucose Calcium 8.2 L Magnesium 1.9 Total Bilirubin 1.5 H AST 18 ALT 4 L Alkaline Phosphatase 44 Total Creatine Kinase 64 Troponin I High Sens 22.7 H C-Reactive Protein 5.44 H Total Protein 6.9 Albumin 3.6 Globulin 3.3 Albumin/Globulin Ratio 1.1 Procalcitonin TSH 0.837 Random Cortisol Urine Color Urine Appearance Urine pH Ur Specific [place] Urine Protein Urine Glucose (UA) Urine Ketones Urine Blood Urine Nitrite Urine Bilirubin Urine Urobilinogen Ur Leukocyte Esterase Urine WBC (Auto) Urine RBC (Auto) U Hyaline Cast (Auto) U Epithel Cells (Auto) Urine Bacteria (Auto) GUS Screen Adenovirus (PCR) B. pertussis DNA (PCR) B.parapertussis DNA PCR Lyme Disease IgG Ab Lyme IgG (Western Blot) Lyme IgG 18 kDa Band Lyme IgG 23 kDa Band Lyme IgG 28 kDa Band Lyme IgG 30 kDa Band Lyme IgG 39 kDa Band Lyme IgG 41 kDa Band Lyme IgG 45 kDa Band Lyme IgG 58 kDa Band Lyme IgG 66 kDa Band Lyme IgG 93 kDa Band Lyme IgM Ab (WB) Lyme Disease IgM Ab Lyme IgM 23 kDa Band Lyme IgM 39 kDa Band Lyme IgM 41 kDa Band C. pneumoniae DNA (PCR) Coronavirus OC43 (PCR) Coronavirus HKU1 (PCR) Coronavirus 229E (PCR) SARS-CoV-2 (PCR) Coronavirus NL63 (PCR) Human Metapneumovir PCR Influenza Type A (PCR) Influenza Type B (PCR) M. pneumoniae (PCR) Parainfluenza 1 (PCR) Parainfluenza 2 (PCR) Parainfluenza 3 (PCR) Parainfluenza 4 (PCR) RSV (PCR) Entero/Rhino (PCR) SARS-CoV-2, RNA, NAAT 04/26/22 04/26/22 04/26/22 14:34 14:34 14:34 WBC RBC Hgb Hct MCV MCH MCHC RDW Std Deviation RDW Coeff of Yan[place] Plt Count MPV Immature Gran % (Auto) Neut % (Auto) Lymph % (Auto) Richardson % (Auto) Eos % (Auto) Baso % (Auto) Neut # (Auto) Lymph # (Auto) Richardson # (Auto) Eos # (Auto) Baso # (Auto) Immature Gran # (Auto) Platelet Estimate ESR Serum Viscosity PT INR APTT PTT Ratio Sodium Potassium Chloride Carbon Dioxide Anion Gap BUN Creatinine Est Cr Clr Drug Dosing Est GFR ( Amer) Est GFR (Non-Af Amer) BUN/Creatinine Ratio Glucose POC Glucose Calcium Magnesium Total Bilirubin AST ALT Alkaline Phosphatase Total Creatine Kinase Troponin I High Sens C-Reactive Protein Total Protein Albumin Globulin Albumin/Globulin Ratio Procalcitonin 0.21 TSH Random Cortisol Urine Color Urine Appearance Urine pH Ur Specific [place] Urine Protein Urine Glucose (UA) Urine Ketones Urine Blood Urine Nitrite Urine Bilirubin Urine Urobilinogen Ur Leukocyte Esterase Urine WBC (Auto) Urine RBC (Auto) U Hyaline Cast (Auto) U Epithel Cells (Auto) Urine Bacteria (Auto) GUS Screen Adenovirus (PCR) B. pertussis DNA (PCR) B.parapertussis DNA PCR Lyme Disease IgG Ab Positive A Lyme IgG (Western Blot) Pending Lyme IgG 18 kDa Band Pending Lyme IgG 23 kDa Band Pending Lyme IgG 28 kDa Band Pending Lyme IgG 30 kDa Band Pending Lyme IgG 39 kDa Band Pending Lyme IgG 41 kDa Band Pending Lyme IgG 45 kDa Band Pending Lyme IgG 58 kDa Band Pending Lyme IgG 66 kDa Band Pending Lyme IgG 93 kDa Band Pending Lyme IgM Ab (WB) Pending Lyme Disease IgM Ab Negative Lyme IgM 23 kDa Band Pending Lyme IgM 39 kDa Band Pending Lyme IgM 41 kDa Band Pending C. pneumoniae DNA (PCR) Coronavirus OC43 (PCR) Coronavirus HKU1 (PCR) Coronavirus 229E (PCR) SARS-CoV-2 (PCR) Coronavirus NL63 (PCR) Human Metapneumovir PCR Influenza Type A (PCR) Influenza Type B (PCR) M. pneumoniae (PCR) Parainfluenza 1 (PCR) Parainfluenza 2 (PCR) Parainfluenza 3 (PCR) Parainfluenza 4 (PCR) RSV (PCR) Entero/Rhino (PCR) SARS-CoV-2, RNA, NAAT 04/26/22 04/26/22 04/26/22 16:27 17:37 20:10 WBC RBC Hgb Hct MCV MCH MCHC RDW Std Deviation RDW Coeff of Yanick Plt Count MPV Immature Gran % (Auto) Neut % (Auto) Lymph % (Auto) Richardson % (Auto) Eos % (Auto) Baso % (Auto) Neut # (Auto) Lymph # (Auto) Richardson # (Auto) Eos # (Auto) Baso # (Auto) Immature Gran # (Auto) Platelet Estimate ESR Serum Viscosity PT INR APTT PTT Ratio Sodium Potassium Chloride Carbon Dioxide Anion Gap BUN Creatinine Est Cr Clr Drug Dosing Est GFR ( Amer) Est GFR (Non-Af Amer) BUN/Creatinine Ratio Glucose POC Glucose 74 83 Calcium Magnesium Total Bilirubin AST ALT Alkaline Phosphatase Total Creatine Kinase Troponin I High Sens C-Reactive Protein Total Protein Albumin Globulin Albumin/Globulin Ratio Procalcitonin TSH Random Cortisol Urine Color Yellow Urine Appearance Clear Urine pH 5.5 Ur Specific [place] 1.016 Urine Protein Negative Urine Glucose (UA) 2+ H Urine Ketones 1+ H Urine Blood 1+ H Urine Nitrite Negative Urine Bilirubin Negative Urine Urobilinogen Negative Ur Leukocyte Esterase Negative Urine WBC (Auto) 1-5 Urine RBC (Auto) 5-10 H U Hyaline Cast (Auto) 1-5 U Epithel Cells (Auto) 5-10 H Urine Bacteria (Auto) Negative GUS Screen Adenovirus (PCR) B. pertussis DNA (PCR) B.parapertussis DNA PCR Lyme Disease IgG Ab Lyme IgG (Western Blot) Lyme IgG 18 kDa Band Lyme IgG 23 kDa Band Lyme IgG 28 kDa Band Lyme IgG 30 kDa Band Lyme IgG 39 kDa Band Lyme IgG 41 kDa Band Lyme IgG 45 kDa Band Lyme IgG 58 kDa Band Lyme IgG 66 kDa Band Lyme IgG 93 kDa Band Lyme IgM Ab (WB) Lyme Disease IgM Ab Lyme IgM 23 kDa Band Lyme IgM 39 kDa Band Lyme IgM 41 kDa Band C. pneumoniae DNA (PCR) Coronavirus OC43 (PCR) Coronavirus HKU1 (PCR) Coronavirus 229E (PCR) SARS-CoV-2 (PCR) Coronavirus NL63 (PCR) Human Metapneumovir PCR Influenza Type A (PCR) Influenza Type B (PCR) M. pneumoniae (PCR) Parainfluenza 1 (PCR) Parainfluenza 2 (PCR) Parainfluenza 3 (PCR) Parainfluenza 4 (PCR) RSV (PCR) Entero/Rhino (PCR) SARS-CoV-2, RNA, NAAT 04/26/22 04/27/22 04/27/22 20:31 04:20 04:20 WBC 4.50 L RBC 3.90 L Hgb 11.9 L Hct 36.9 MCV 94.6 MCH 30.5 MCHC 32.2 RDW Std Deviation 47.3 H RDW Coeff of Yanick 13.6 Plt Count 121 L MPV 10.6 Immature Gran % (Auto) 0.2 Neut % (Auto) 65.4 Lymph % (Auto) 19.3 Richardson % (Auto) 13.1 Eos % (Auto) 1.1 Baso % (Auto) 0.9 Neut # (Auto) 2.94 Lymph # (Auto) 0.87 L Richardson # (Auto) 0.59 Eos # (Auto) 0.05 Baso # (Auto) 0.04 Immature Gran # (Auto) 0.01 Platelet Estimate Decreased L ESR Serum Viscosity Pending PT INR APTT PTT Ratio Sodium 133 L Potassium 4.5 D Chloride 102 Carbon Dioxide 22 Anion Gap 9 BUN 12 Creatinine 0.67 Est Cr Clr Drug Dosing 52.1 Est GFR ( Amer) 95.5 Est GFR (Non-Af Amer) 82.4 BUN/Creatinine Ratio 17.9 Glucose 74 POC Glucose Calcium 7.6 L Magnesium Total Bilirubin AST ALT Alkaline Phosphatase Total Creatine Kinase Troponin I High Sens C-Reactive Protein Total Protein Albumin Globulin Albumin/Globulin Ratio Procalcitonin TSH Random Cortisol Urine Color Urine Appearance Urine pH Ur Specific [place] Urine Protein Urine Glucose (UA) Urine Ketones Urine Blood Urine Nitrite Urine Bilirubin Urine Urobilinogen Ur Leukocyte Esterase Urine WBC (Auto) Urine RBC (Auto) U Hyaline Cast (Auto) U Epithel Cells (Auto) Urine Bacteria (Auto) GUS Screen Adenovirus (PCR) B. pertussis DNA (PCR) B.parapertussis DNA PCR Lyme Disease IgG Ab Lyme IgG (Western Blot) Lyme IgG 18 kDa Band Lyme IgG 23 kDa Band Lyme IgG 28 kDa Band Lyme IgG 30 kDa Band Lyme IgG 39 kDa Band Lyme IgG 41 kDa Band Lyme IgG 45 kDa Band Lyme IgG 58 kDa Band Lyme IgG 66 kDa Band Lyme IgG 93 kDa Band Lyme IgM Ab (WB) Lyme Disease IgM Ab Lyme IgM 23 kDa Band Lyme IgM 39 kDa Band Lyme IgM 41 kDa Band C. pneumoniae DNA (PCR) Coronavirus OC43 (PCR) Coronavirus HKU1 (PCR) Coronavirus 229E (PCR) SARS-CoV-2 (PCR) Coronavirus NL63 (PCR) Human Metapneumovir PCR Influenza Type A (PCR) Influenza Type B (PCR) M. pneumoniae (PCR) Parainfluenza 1 (PCR) Parainfluenza 2 (PCR) Parainfluenza 3 (PCR) Parainfluenza 4 (PCR) RSV (PCR) Entero/Rhino (PCR) SARS-CoV-2, RNA, NAAT 04/27/22 04/27/22 04/27/22 04:20 04:20 05:26 WBC RBC Hgb Hct MCV MCH MCHC RDW Std Deviation RDW Coeff of [place] Plt Count MPV Immature Gran % (Auto) Neut % (Auto) Lymph % (Auto) Richardson % (Auto) Eos % (Auto) Baso % (Auto) Neut # (Auto) Lymph # (Auto) Richardson # (Auto) Eos # (Auto) Baso # (Auto) Immature Gran # (Auto) Platelet Estimate ESR Serum Viscosity PT INR APTT PTT Ratio Sodium Potassium Chloride Carbon Dioxide Anion Gap BUN Creatinine Est Cr Clr Drug Dosing Est GFR ( Amer) Est GFR (Non-Af Amer) BUN/Creatinine Ratio Glucose POC Glucose 66 L* Calcium Magnesium Total Bilirubin AST ALT Alkaline Phosphatase Total Creatine Kinase Troponin I High Sens 1757.6 H* D C-Reactive Protein Total Protein Albumin Globulin Albumin/Globulin Ratio Procalcitonin TSH Random Cortisol Urine Color Urine Appearance Urine pH Ur Specific [place] Urine Protein Urine Glucose (UA) Urine Ketones Urine Blood Urine Nitrite Urine Bilirubin Urine Urobilinogen Ur Leukocyte Esterase Urine WBC (Auto) Urine RBC (Auto) U Hyaline Cast (Auto) U Epithel Cells (Auto) Urine Bacteria (Auto) GUS Screen Pending Adenovirus (PCR) B. pertussis DNA (PCR) B.parapertussis DNA PCR Lyme Disease IgG Ab Lyme IgG (Western Blot) Lyme IgG 18 kDa Band Lyme IgG 23 kDa Band Lyme IgG 28 kDa Band Lyme IgG 30 kDa Band Lyme IgG 39 kDa Band Lyme IgG 41 kDa Band Lyme IgG 45 kDa Band Lyme IgG 58 kDa Band Lyme IgG 66 kDa Band Lyme IgG 93 kDa Band Lyme IgM Ab (WB) Lyme Disease IgM Ab Lyme IgM 23 kDa Band Lyme IgM 39 kDa Band Lyme IgM 41 kDa Band C. pneumoniae DNA (PCR) Coronavirus OC43 (PCR) Coronavirus HKU1 (PCR) Coronavirus 229E (PCR) SARS-CoV-2 (PCR) Coronavirus NL63 (PCR) Human Metapneumovir PCR Influenza Type A (PCR) Influenza Type B (PCR) M. pneumoniae (PCR) Parainfluenza 1 (PCR) Parainfluenza 2 (PCR) Parainfluenza 3 (PCR) Parainfluenza 4 (PCR) RSV (PCR) Entero/Rhino (PCR) SARS-CoV-2, RNA, NAAT 04/27/22 04/27/22 04/27/22 06:07 07:09 09:15 WBC RBC Hgb Hct MCV MCH MCHC RDW Std Deviation RDW Coeff of [place] Plt Count MPV Immature Gran % (Auto) Neut % (Auto) Lymph % (Auto) Richardson % (Auto) Eos % (Auto) Baso % (Auto) Neut # (Auto) Lymph # (Auto) Richardson # (Auto) Eos # (Auto) Baso # (Auto) Immature Gran # (Auto) Platelet Estimate ESR Serum Viscosity PT INR APTT PTT Ratio Sodium Potassium Chloride Carbon Dioxide Anion Gap BUN Creatinine Est Cr Clr Drug Dosing Est GFR ( Amer) Est GFR (Non-Af Amer) BUN/Creatinine Ratio Glucose POC Glucose 82 84 Calcium Magnesium Total Bilirubin AST ALT Alkaline Phosphatase Total Creatine Kinase Troponin I High Sens C-Reactive Protein Total Protein Albumin Globulin Albumin/Globulin Ratio Procalcitonin TSH Random Cortisol Urine Color Urine Appearance Urine pH Ur Specific [place] Urine Protein Urine Glucose (UA) Urine Ketones Urine Blood Urine Nitrite Urine Bilirubin Urine Urobilinogen Ur Leukocyte Esterase Urine WBC (Auto) Urine RBC (Auto) U Hyaline Cast (Auto) U Epithel Cells (Auto) Urine Bacteria (Auto) GUS Screen Adenovirus (PCR) Not Detected B. pertussis DNA (PCR) Not Detected B.parapertussis DNA PCR Not Detected Lyme Disease IgG Ab Lyme IgG (Western Blot) Lyme IgG 18 kDa Band Lyme IgG 23 kDa Band Lyme IgG 28 kDa Band Lyme IgG 30 kDa Band Lyme IgG 39 kDa Band Lyme IgG 41 kDa Band Lyme IgG 45 kDa Band Lyme IgG 58 kDa Band Lyme IgG 66 kDa Band Lyme IgG 93 kDa Band Lyme IgM Ab (WB) Lyme Disease IgM Ab Lyme IgM 23 kDa Band Lyme IgM 39 kDa Band Lyme IgM 41 kDa Band C. pneumoniae DNA (PCR) Not Detected Coronavirus OC43 (PCR) Not Detected Coronavirus HKU1 (PCR) Not Detected Coronavirus 229E (PCR) Not Detected SARS-CoV-2 (PCR) Not Detected Coronavirus NL63 (PCR) Not Detected Human Metapneumovir PCR Not Detected Influenza Type A (PCR) Not Detected Influenza Type B (PCR) Not Detected M. pneumoniae (PCR) Not Detected Parainfluenza 1 (PCR) Not Detected Parainfluenza 2 (PCR) Not Detected Parainfluenza 3 (PCR) Not Detected Parainfluenza 4 (PCR) Not Detected RSV (PCR) Not Detected Entero/Rhino (PCR) Not Detected SARS-CoV-2, RNA, NAAT 04/27/22 04/27/22 04/27/22 11:00 11:19 11:44 WBC RBC Hgb Hct MCV MCH MCHC RDW Std Deviation RDW Coeff of Yanick Plt Count MPV Immature Gran % (Auto) Neut % (Auto) Lymph % (Auto) Richardson % (Auto) Eos % (Auto) Baso % (Auto) Neut # (Auto) Lymph # (Auto) Richardson # (Auto) Eos # (Auto) Baso # (Auto) Immature Gran # (Auto) Platelet Estimate ESR Serum Viscosity PT INR APTT PTT Ratio Sodium Potassium Chloride Carbon Dioxide Anion Gap BUN Creatinine Est Cr Clr Drug Dosing Est GFR ( Amer) Est GFR (Non-Af Amer) BUN/Creatinine Ratio Glucose POC Glucose 65 L* 59 L* 70 Calcium Magnesium Total Bilirubin AST ALT Alkaline Phosphatase Total Creatine Kinase Troponin I High Sens C-Reactive Protein Total Protein Albumin Globulin Albumin/Globulin Ratio Procalcitonin TSH Random Cortisol Urine Color Urine Appearance Urine pH Ur Specific [place] Urine Protein Urine Glucose (UA) Urine Ketones Urine Blood Urine Nitrite Urine Bilirubin Urine Urobilinogen Ur Leukocyte Esterase Urine WBC (Auto) Urine RBC (Auto) U Hyaline Cast (Auto) U Epithel Cells (Auto) Urine Bacteria (Auto) GUS Screen Adenovirus (PCR) B. pertussis DNA (PCR) B.parapertussis DNA PCR Lyme Disease IgG Ab Lyme IgG (Western Blot) Lyme IgG 18 kDa Band Lyme IgG 23 kDa Band Lyme IgG 28 kDa Band Lyme IgG 30 kDa Band Lyme IgG 39 kDa Band Lyme IgG 41 kDa Band Lyme IgG 45 kDa Band Lyme IgG 58 kDa Band Lyme IgG 66 kDa Band Lyme IgG 93 kDa Band Lyme IgM Ab (WB) Lyme Disease IgM Ab Lyme IgM 23 kDa Band Lyme IgM 39 kDa Band Lyme IgM 41 kDa Band C. pneumoniae DNA (PCR) Coronavirus OC43 (PCR) Coronavirus HKU1 (PCR) Coronavirus 229E (PCR) SARS-CoV-2 (PCR) Coronavirus NL63 (PCR) Human Metapneumovir PCR Influenza Type A (PCR) Influenza Type B (PCR) M. pneumoniae (PCR) Parainfluenza 1 (PCR) Parainfluenza 2 (PCR) Parainfluenza 3 (PCR) Parainfluenza 4 (PCR) RSV (PCR) Entero/Rhino (PCR) SARS-CoV-2, RNA, NAAT 04/27/22 04/27/22 12:11 12:11 WBC RBC Hgb Hct MCV MCH MCHC RDW Std Deviation RDW Coeff of Yanick Plt Count MPV Immature Gran % (Auto) Neut % (Auto) Lymph % (Auto) Richardson % (Auto) Eos % (Auto) Baso % (Auto) Neut # (Auto) Lymph # (Auto) Richardson # (Auto) Eos # (Auto) Baso # (Auto) Immature Gran # (Auto) Platelet Estimate ESR Serum Viscosity PT INR APTT PTT Ratio Sodium Potassium Chloride Carbon Dioxide Anion Gap BUN Creatinine Est Cr Clr Drug Dosing Est GFR ( Amer) Est GFR (Non-Af Amer) BUN/Creatinine Ratio Glucose POC Glucose Calcium Magnesium Total Bilirubin AST ALT Alkaline Phosphatase Total Creatine Kinase Troponin I High Sens 8086.7 H* D C-Reactive Protein Total Protein Albumin Globulin Albumin/Globulin Ratio Procalcitonin TSH Random Cortisol 5.13 Urine Color Urine Appearance Urine pH Ur Specific [place] Urine Protein Urine Glucose (UA) Urine Ketones Urine Blood Urine Nitrite Urine Bilirubin Urine Urobilinogen Ur Leukocyte Esterase Urine WBC (Auto) Urine RBC (Auto) U Hyaline Cast (Auto) U Epithel Cells (Auto) Urine Bacteria (Auto) GUS Screen Adenovirus (PCR) B. pertussis DNA (PCR) B.parapertussis DNA PCR Lyme Disease IgG Ab Lyme IgG (Western Blot) Lyme IgG 18 kDa Band Lyme IgG 23 kDa Band Lyme IgG 28 kDa Band Lyme IgG 30 kDa Band Lyme IgG 39 kDa Band Lyme IgG 41 kDa Band Lyme IgG 45 kDa Band Lyme IgG 58 kDa Band Lyme IgG 66 kDa Band Lyme IgG 93 kDa Band Lyme IgM Ab (WB) Lyme Disease IgM Ab Lyme IgM 23 kDa Band Lyme IgM 39 kDa Band Lyme IgM 41 kDa Band C. pneumoniae DNA (PCR) Coronavirus OC43 (PCR) Coronavirus HKU1 (PCR) Coronavirus 229E (PCR) SARS-CoV-2 (PCR) Coronavirus NL63 (PCR) Human Metapneumovir PCR Influenza Type A (PCR) Influenza Type B (PCR) M. pneumoniae (PCR) Parainfluenza 1 (PCR) Parainfluenza 2 (PCR) Parainfluenza 3 (PCR) Parainfluenza 4 (PCR) RSV (PCR) Entero/Rhino (PCR) SARS-CoV-2, RNA, NAAT PG Care Time/CCT Total # of Minutes Spent Total Time Spent with Patient: Total time spent is greater than 50% in coordination of care (as documented) at patient's floor/unit and/or counseling patient: Critical Care Time: Yes Total Critical Care Time: 80 Coding Level of Care Code None Diagnoses Hypoglycemia E16.2 Hypotension I95.9 Elevated troponin R77.8 Confusion R41.0 Adrenal insufficiency E27.40 Positive Lyme disease serology R76.8 Hypothyroidism E03.9 Hyperlipidemia E78.5 Benign hypertension I10 Asthma J45.909 Abnormal EKG R94.31 Multiple myeloma C90.00 Multiple myeloma remission status: unspecified Pancytopenia D61.818 Hyponatremia E87.1 Additional Codes Critical Care Time - Critical Care Time: Yes ([id number]) Time Spent (min) 80 Comment critical care (1) Multiple myeloma Multiple myeloma remission status: unspecified Qualified Code(s): C90.00 - Multiple myeloma not having achieved remission
--- NOTE | 2022-04-27 14:28 | XCELERA ---
[id number]
--- NOTE | 2022-04-27 17:03 | Cardiology Consultation ---
Date of Consultation April 27, 2022 Assessment & Plan (1) Abnormal EKG: (2) Elevated troponin: Plan 1. Elevated troponin: She has significant rise in her cardiac biomarkers. This occurred after admission. Did not appear to be any specific hemodynamic derangement or episode of hypoxia correlating with what appears to be a myocardial injury. However, she did not describe symptoms of an acute coronary syndrome either. Her echocardiogram is generally normal but there may be a subtle wall motion abnormality involving the distal anterolateral wall. She was started on heparin infusion which we will continue. Based on the significant elevation in her biomarkers in the absence of an alternate etiology I think would be reasonable perform coronary angiography. Did discuss the procedure with the patient today. Reportedly has a iodine allergy, but she appears to have mention this only to avoid procedures in the past. When asked directly she did not report any actual allergy to iodine. 2. Abnormal EKG: She does have some subtle ST segment changes. These are nons pecific. At the time of admission the QTC was normal, this has become longer on the most recent EKG. I suspect this is related to some electrolyte disturbance. I cannot see any current medications which would result in a prolonged QT. will recheck her electrolytes and replace as necessary. Patient being moved to telemetry. History of Present Illness Reason for Consultation: Elevated troponin Requesting Physician: Libby Attending Physician: Keron Souza History of Present Illness The patient is an 81-year-old woman with a history of multiple myeloma who was brought to the hospital with confusion and weakness. She was discovered to be significantly hypoglycemic and later evaluation also demonstrated low cortisol level. She had mildly abnormal EKG in a very mild elevation in her cardiac troponin the time of admission. Repeat value obtained today demonstrated a significant elevation. Patient denied any specific symptoms. She has little insight in to her reason for being in the hospital. She cannot recall any specific symptoms that she experienced leading up to her admission. She specifically denies any chest discomfort or breathing difficulty. She denies dizziness lightheadedness. No recent sense of palpitation. She denies any abdominal discomfort. She claims to be eating well although according to the patient her wishes she would eat more. When asked about activity at home, she denied any recent exercise or significant strenuous activity she is fairly sedentary. She denies any symptoms associated with activity. Currently feeling well without any specific symptoms. Allergies Allergy/AdvReac Type Severity Reaction Status Date / Time iodine Allergy Mild SPOTS Verified 05/06/22 12:42 BEHIND EARS,HEAVINESS IN LEGS AND ARMS X'S 24 HOURS clams Allergy Unknown Verified 05/06/22 12:42 Home Medications Medication Instructions Recorded Confirmed Type aspirin 81 mg tablet,delayed 81 mg PO DAILY 10/18/18 05/06/22 History release (Noel Low Dose Aspirin) calcium carbonate 500 mg-vitamin 1 tab PO DAILY 10/18/18 05/06/22 History D3 5 mcg (200 unit) tablet (Calcium 500 + D) albuterol sulfate 90 mcg/actuation See Rx Instructions inhalation 10/25/18 05/06/22 History aerosol inhaler (ProAir HFA) .COMPLEX PRN Shortness Of Breath ferrous sulfate 325 mg (65 mg 325 mg PO DAILY 10/25/18 05/06/22 History iron) tablet (FeroSul) denosumab 120 mg/1.7 mL (70 mg/mL) 120 mg subcut UD 01/28/19 05/06/22 History subcutaneous solution (Xgeva) levothyroxine 75 mcg tablet 75 mcg PO DAILYBB 30 days #30 tabs 04/01/22 05/06/22 Rx (Synthroid) doxycycline hyclate 100 mg capsule 100 mg PO BID #23 caps 04/29/22 05/06/22 Rx hydrocortisone 5 mg tablet See Rx Instructions .Route 04/29/22 05/06/22 Rx .COMPLEX #120 tabs Patient History Medical History COVID-19 Fall Hypersensitivity reaction Hypoxia Pneumonia Surgical History H/O removal of cyst Family History Mother Hypertension Brother Colon cancer Father Stroke Denies family history of Ovarian cancer Prostate cancer Diabetes Myocardial infarction Breast cancer Social History Smoking Status: Former smoker Second Hand Exposure: No; Hx Alcohol Use: No Hx Substance Use: No Preferred Language: Angolan Communication Ability: Effective Director Of Knowledge Management Required: No Beliefs That Will Affect Care: None marital status: Current Living Situation: Alone Current Living Situation Comment: Patient reports she lives alone current occupational status: retired Feels Safe at Home: Yes caffeine: No Dental Care, Regularly: Yes Physical Activity Frequency: Does not Exercise Seatbelt Use: always Sunscreen Use: Yes Assistive Devices: Walker Review of Systems Review of Systems: Per HPI Physical Exam Physical Exam: She is alert and oriented x3. Mood affect appear normal. She answered all questions appropriately. HEENT: Sclerae are anicteric. Pupils are equal and reactive to light and accommodation. Extraocular movements were intact. Neuro: Cranial nerves intact Lungs: Lungs are clear to auscultation bilaterally. There are no rales wheezes or rhonchi. She has normal respiratory effort without use of accessory muscles. There is normal pulmonary excursion. Cardiac: The rhythm was regular. S1 and S2 were normal. There are no murmurs on examination. The PMI was not markedly displaced on palpation. Abdomen: The abdomen was soft and nontender. Extremities: Patient has bilateral radial pulses that are equal in intensity. There is no evidence cyanosis or clubbing. There was no evidence of significant peripheral edema bilaterally. Skin: There are no rashes noted on examination today. Results & Data ([facility]) Vital Signs (Past 12 Hours) Vital Signs Temp Pulse Pulse Pulse Resp BP BP 04/27/22 16:35 36.9 C 73 20 04/27/22 15:04 36.7 C 75 20 91/59 L 04/27/22 13:40 70 16 97/57 L 04/27/22 12:34 36.7 C 70 16 90/50 L 04/27/22 10:56 37 C 75 16 93/57 L 04/27/22 09:02 36.9 C 75 16 86/49 L 04/27/22 07:46 37 C 77 16 87/56 L 04/27/22 07:14 58 L 16 95/56 L 04/27/22 06:00 73 24 97/46 L 04/27/22 05:00 98/58 L 04/27/22 05:22 BP Pulse Ox O2 Del Method O2 Flow Rate 04/27/22 16:35 99/61 L 100 Nasal Cannula 2 04/27/22 15:04 90 Room Air 04/27/22 13:40 91 Room Air 04/27/22 12:34 96 Nasal Cannula 1 04/27/22 10:56 90 Room Air 04/27/22 09:02 96 Room Air 12/27/22 07:46 91 Room Air 04/27/22 07:14 98 Room Air 04/27/22 06:00 98 Nasal Cannula 2 04/27/22 05:00 04/27/22 05:22 Nasal Cannula 2 Laboratory Results Abnormal Lab Results 04/26/22 04/26/22 04/26/22 14:34 17:37 20:10 WBC RBC Hgb Hct MCV MCH MCHC RDW Std Deviation RDW Coeff of Yanick Plt Count MPV Immature Gran % (Auto) Neut % (Auto) Lymph % (Auto) [place] % (Auto) Eos % (Auto) Baso % (Auto) Neut # (Auto) Lymph # (Auto) [place] # (Auto) Eos # (Auto) Baso # (Auto) Immature Gran # (Auto) Platelet Estimate Sodium Potassium Chloride Carbon Dioxide Anion Gap BUN Creatinine Est Cr Clr Drug Dosing Est GFR ( Amer) Est GFR (Non-Af Amer) BUN/Creatinine Ratio Glucose POC Glucose 74 83 Calcium Troponin I High Sens Random Cortisol Adenovirus (PCR) B. pertussis DNA (PCR) B.parapertussis DNA PCR Lyme Disease IgG Ab Positive A Lyme Disease IgM Ab Negative C. pneumoniae DNA (PCR) Coronavirus OC43 (PCR) Coronavirus HKU1 (PCR) Coronavirus 229E (PCR) SARS-CoV-2 (PCR) Coronavirus NL63 (PCR) Human Metapneumovir PCR Influenza Type A (PCR) Influenza Type B (PCR) M. pneumoniae (PCR) Parainfluenza 1 (PCR) Parainfluenza 2 (PCR) Parainfluenza 3 (PCR) Parainfluenza 4 (PCR) RSV (PCR) Entero/Rhino (PCR) 04/27/22 04/27/22 04/27/22 04:20 04:20 04:20 WBC 4.50 L RBC 3.90 L Hgb 11.9 L Hct 36.9 MCV 94.6 MCH 30.5 MCHC 32.2 RDW Std Deviation 47.3 H RDW Coeff of Yanick 13.6 Plt Count 121 L MPV 10.6 Immature Gran % (Auto) 0.2 Neut % (Auto) 65.4 Lymph % (Auto) 19.3 [place] % (Auto) 13.1 Eos % (Auto) 1.1 Baso % (Auto) 0.9 Neut # (Auto) 2.94 Lymph # (Auto) 0.87 L [place] # (Auto) 0.59 Eos # (Auto) 0.05 Baso # (Auto) 0.04 Immature Gran # (Auto) 0.01 Platelet Estimate Decreased L Sodium 133 L Potassium 4.5 D Chloride 102 Carbon Dioxide 22 Anion Gap 9 BUN 12 Creatinine 0.67 Est Cr Clr Drug Dosing 52.1 Est GFR ( Amer) 95.5 Est GFR (Non-Af Amer) 82.4 BUN/Creatinine Ratio 17.9 Glucose 74 POC Glucose Calcium 7.6 L Troponin I High Sens 1757.6 H* D Random Cortisol Adenovirus (PCR) B. pertussis DNA (PCR) B.parapertussis DNA PCR Lyme Disease IgG Ab Lyme Disease IgM Ab C. pneumoniae DNA (PCR) Coronavirus OC43 (PCR) Coronavirus HKU1 (PCR) Coronavirus 229E (PCR) SARS-CoV-2 (PCR) Coronavirus NL63 (PCR) Human Metapneumovir PCR Influenza Type A (PCR) Influenza Type B (PCR) M. pneumoniae (PCR) Parainfluenza 1 (PCR) Parainfluenza 2 (PCR) Parainfluenza 3 (PCR) Parainfluenza 4 (PCR) RSV (PCR) Entero/Rhino (PCR) 04/27/22 04/27/22 04/27/22 05:26 06:07 07:09 WBC RBC Hgb Hct MCV MCH MCHC RDW Std Deviation RDW Coeff of Yanick Plt Count MPV Immature Gran % (Auto) Neut % (Auto) Lymph % (Auto) [place] % (Auto) Eos % (Auto) Baso % (Auto) Neut # (Auto) Lymph # (Auto) [place] # (Auto) Eos # (Auto) Baso # (Auto) Immature Gran # (Auto) Platelet Estimate Sodium Potassium Chloride Carbon Dioxide Anion Gap BUN Creatinine Est Cr Clr Drug Dosing Est GFR ( Amer) Est GFR (Non-Af Amer) BUN/Creatinine Ratio Glucose POC Glucose 66 L* 82 84 Calcium Troponin I High Sens Random Cortisol Adenovirus (PCR) B. pertussis DNA (PCR) B.parapertussis DNA PCR Lyme Disease IgG Ab Lyme Disease IgM Ab C. pneumoniae DNA (PCR) Coronavirus OC43 (PCR) Coronavirus HKU1 (PCR) Coronavirus 229E (PCR) SARS-CoV-2 (PCR) Coronavirus NL63 (PCR) Human Metapneumovir PCR Influenza Type A (PCR) Influenza Type B (PCR) M. pneumoniae (PCR) Parainfluenza 1 (PCR) Parainfluenza 2 (PCR) Parainfluenza 3 (PCR) Parainfluenza 4 (PCR) RSV (PCR) Entero/Rhino (PCR) 04/27/22 04/27/22 04/27/22 09:15 11:00 11:19 WBC RBC Hgb Hct MCV MCH MCHC RDW Std Deviation RDW Coeff of Yanick Plt Count MPV Immature Gran % (Auto) Neut % (Auto) Lymph % (Auto) [place] % (Auto) Eos % (Auto) Baso % (Auto) Neut # (Auto) Lymph # (Auto) [place] # (Auto) Eos # (Auto) Baso # (Auto) Immature Gran # (Auto) Platelet Estimate Sodium Potassium Chloride Carbon Dioxide Anion Gap BUN Creatinine Est Cr Clr Drug Dosing Est GFR ( Amer) Est GFR (Non-Af Amer) BUN/Creatinine Ratio Glucose POC Glucose 65 L* 59 L* Calcium Troponin I High Sens Random Cortisol Adenovirus (PCR) Not Detected B. pertussis DNA (PCR) Not Detected B.parapertussis DNA PCR Not Detected Lyme Disease IgG Ab Lyme Disease IgM Ab C. pneumoniae DNA (PCR) Not Detected Coronavirus OC43 (PCR) Not Detected Coronavirus HKU1 (PCR) Not Detected Coronavirus 229E (PCR) Not Detected SARS-CoV-2 (PCR) Not Detected Coronavirus NL63 (PCR) Not Detected Human Metapneumovir PCR Not Detected Influenza Type A (PCR) Not Detected Influenza Type B (PCR) Not Detected M. pneumoniae (PCR) Not Detected Parainfluenza 1 (PCR) Not Detected Parainfluenza 2 (PCR) Not Detected Parainfluenza 3 (PCR) Not Detected Parainfluenza 4 (PCR) Not Detected RSV (PCR) Not Detected Entero/Rhino (PCR) Not Detected 04/27/22 04/27/22 04/27/22 11:44 12:11 12:11 WBC RBC Hgb Hct MCV MCH MCHC RDW Std Deviation RDW Coeff of Yanick Plt Count MPV Immature Gran % (Auto) Neut % (Auto) Lymph % (Auto) [place] % (Auto) Eos % (Auto) Baso % (Auto) Neut # (Auto) Lymph # (Auto) [place] # (Auto) Eos # (Auto) Baso # (Auto) Immature Gran # (Auto) Platelet Estimate Sodium Potassium Chloride Carbon Dioxide Anion Gap BUN Creatinine Est Cr Clr Drug Dosing Est GFR ( Amer) Est GFR (Non-Af Amer) BUN/Creatinine Ratio Glucose POC Glucose 70 Calcium Troponin I High Sens 8086.7 H* D Random Cortisol 5.13 Adenovirus (PCR) B. pertussis DNA (PCR) B.parapertussis DNA PCR Lyme Disease IgG Ab Lyme Disease IgM Ab C. pneumoniae DNA (PCR) Coronavirus OC43 (PCR) Coronavirus HKU1 (PCR) Coronavirus 229E (PCR) SARS-CoV-2 (PCR) Coronavirus NL63 (PCR) Human Metapneumovir PCR Influenza Type A (PCR) Influenza Type B (PCR) M. pneumoniae (PCR) Parainfluenza 1 (PCR) Parainfluenza 2 (PCR) Parainfluenza 3 (PCR) Parainfluenza 4 (PCR) RSV (PCR) Entero/Rhino (PCR) 04/27/22 04/27/22 15:30 16:40 WBC RBC Hgb Hct MCV MCH MCHC RDW Std Deviation RDW Coeff of Yanick Plt Count MPV Immature Gran % (Auto) Neut % (Auto) Lymph % (Auto) [place] % (Auto) Eos % (Auto) Baso % (Auto) Neut # (Auto) Lymph # (Auto) [place] # (Auto) Eos # (Auto) Baso # (Auto) Immature Gran # (Auto) Platelet Estimate Sodium Potassium Chloride Carbon Dioxide Anion Gap BUN Creatinine Est Cr Clr Drug Dosing Est GFR ( Amer) Est GFR (Non-Af Amer) BUN/Creatinine Ratio Glucose POC Glucose 105 H 102 H Calcium Troponin I High Sens Random Cortisol Adenovirus (PCR) B. pertussis DNA (PCR) B.parapertussis DNA PCR Lyme Disease IgG Ab Lyme Disease IgM Ab C. pneumoniae DNA (PCR) Coronavirus OC43 (PCR) Coronavirus HKU1 (PCR) Coronavirus 229E (PCR) SARS-CoV-2 (PCR) Coronavirus NL63 (PCR) Human Metapneumovir PCR Influenza Type A (PCR) Influenza Type B (PCR) M. pneumoniae (PCR) Parainfluenza 1 (PCR) Parainfluenza 2 (PCR) Parainfluenza 3 (PCR) Parainfluenza 4 (PCR) RSV (PCR) Entero/Rhino (PCR) Diagnostic Findings Imaging studies is not reveal any acute intracranial processes included head CT x2 and an MRI Chest x-ray demonstrated cardiomegaly without acute cardiopulmonary process. Echocardiogram demonstrated overall preserved LV systolic function with questionable wall motion abnormality involving the distal anterolateral wall. PG Care Time/CCT Total # of Minutes Spent Total Time Spent with Patient: Total time spent is greater than 50% in coordination of care (as documented) at patient's floor/unit and/or counseling patient: Coding Level of Care Code 49569 INT INP/OBS CARE 3/75MIN Diagnoses Abnormal EKG R94.31 Elevated troponin R77.8
--- NOTE | 2022-04-27 17:18 | Electrocardiogram Report ---
Test Reason : Blood Pressure : / mmHG Vent. Rate : 075 BPM Atrial Rate : 075 BPM P-R Int : 190 ms QRS Dur : 084 ms QT Int : 566 ms P-R-T Axes : 095 -58 017 degrees QTc Int : 632 ms Sinus rhythm with Premature atrial complexes Left axis deviation Prolonged QT Abnormal ECG When compared with ECG of 26-APR-2022 14:06, Premature atrial complexes are now Present Nonspecific T wave abnormality, improved in Lateral leads QT has lengthened Confirmed by Justin Perez ([id number]) on 04/27/2022 5:17:44 PM Referred By: REFERRED SELF Confirmed By:Rohith Perez
[2022-04-27 21:51] LABS: Partial Thromboplastin Time 54.7 Seconds (21.0-31.0)
[2022-04-28] MEDS: LEVOTHYROXINE SODIUM 75 MCG TABLET PO SCH (06:16)
[2022-04-28] MEDS: dexAMETHasone 2 MG in SYRINGE 0 ML IV SCH ×3 (08:28→20:03)
[2022-04-28 08:38] LABS: Hematocrit (blood only) 31.8 % (34.1-44.9); Hemoglobin 10.5 g/dl (12.0-16.0); Mean Corpuscular Hemoglobin 30.6 pg (25.0-34.0); Mean Corpuscular Volume 92.7 fL (80.0-100.0); Mean Platelet Volume 11.5 fL (9.4-12.3); Platelet Count 110 K/uL (130-400); RDW Coefficient of Variation 13.2 % (11.5-14.5); RDW Standard Deviation 44.9 fL (36.4-46.3); Red Blood Count 3.43 M/uL (3.93-5.22); White Blood Count 1.96 K/ul (4.8-10.8)
[2022-04-28 08:57] LABS: Basophils # (auto) 0.01 K/uL (0-0.2); Basophils % (auto) 0.5 %; Echinocytes 1+; Immature Granulocytes # (auto) 0.01 K/uL (0.00-0.02); Immature Granulocytes % (auto) 0.5 %; Lymphocytes # (auto) 0.41 K/uL (1.2-3.4); Lymphocytes % (auto) 20.9 %; Monocytes # (auto) 0.19 K/uL (0.24-0.82); Monocytes % (auto) 9.7 %; Neutrophils # (auto) 1.34 K/uL (1.4-6.5); Neutrophils % (auto) 68.4 %
[2022-04-28 08:58] LABS: Partial Thromboplastin Ratio 1.9
[2022-04-28] MEDS: SODIUM CHLORIDE 0.9% 1000ML 1,000 ML IV SCH ×2 (09:00→22:08)
[2022-04-28] MEDS: ASPIRIN 81 MG ECTAB PO SCH (09:00)
[2022-04-28 09:19] LABS: BUN Creatinine Ratio 22.6 (10-20); Calcium 6.9 mg/dl (8.5-10.1); Creatinine Clr Calc Pharmacy 65.8 ml/min; Est GFR (African American) 103.2 ml/min
--- NOTE | 2022-04-28 09:34 | Pre Anesthesia Assessment ---
Date of Service April 28, 2022 Pre Sedation Assessment Vital Signs Temp Pulse Pulse Pulse Resp BP BP 04/28/22 08:08 36.9 C 73 18 137/71 04/27/22 22:22 69 04/28/22 04:16 36.5 C 63 18 115/67 04/27/22 22:30 36.9 C 67 18 103/62 04/27/22 20:02 36.6 C 69 18 113/64 04/27/22 17:30 81 04/27/22 16:35 36.9 C 73 20 99/61 L 04/27/22 15:04 36.7 C 75 20 91/59 L 04/27/22 13:40 70 16 97/57 L 04/27/22 12:34 36.7 C 70 16 90/50 L 04/27/22 10:56 37 C 75 16 93/57 L Pulse Ox O2 Del Method O2 Flow Rate 04/28/22 08:08 99 Nasal Cannula 3 04/27/22 22:22 04/28/22 04:16 98 Nasal Cannula 2 04/27/22 22:30 100 Nasal Cannula 2 04/27/22 20:02 99 Nasal Cannula 2 04/27/22 17:30 04/27/22 16:35 100 Nasal Cannula 2 04/27/22 15:04 90 Room Air 04/27/22 13:40 91 Room Air 04/27/22 12:34 96 Nasal Cannula 1 04/27/22 10:56 90 Room Air Cardiovascular + regular rate and + regular rhythm Respiratory + respiratory effort normal Pre-Sedation Airway Assessment Smoking Status: Former smoker Hx Sleep Apnea: No Hx Difficult Intubation: No Short, Thick Neck: No Thyromental Distance: > or= 3.5 Finger Breadths Oral Cavity: + WNL Mallampati Class: III ASA: ASA3 Procedure Planning Contraindications for Sedation: none Current Medications Reviewed: Yes Notes The planned sedation has been discussed with the patient. Informed Consent was obtained. I have identified the patient, determined the appropriateness of sedation and have assessed the patient immediately prior to the procedure. All medicine(s) and interventions are by my order.
[2022-04-28] MEDS ORDERED: diphenhydrAMINE 50 MG/ML VIAL IV ONE (09:35)
[2022-04-28] MEDS ORDERED: CALCIUM GLUCONATE 10% 2,000 MG in DEXTROSE 5% 50 ML IV ONE (09:49)
[2022-04-28] MEDS ORDERED: STAT IV STA (09:49)
[2022-04-28] MEDS ORDERED: CALCIUM GLUCONATE 1000 MG/60 ML NSS IV ONE (09:57)
[2022-04-28] MEDS ORDERED: MIDAZOLAM HCL 1 MG/ML 2ML VIAL ONE (10:22)
[2022-04-28] MEDS ORDERED: niCARdipine HCL INJ 2.5 MG/ML 10 ML AMP ONE (10:22)
[2022-04-28] MEDS ORDERED: HEPARIN (PORCINE) 1000 UNIT/ML 10 ML (CATH LAB USE ONLY) ONE (10:22)
[2022-04-28] MEDS ORDERED: NITROGLYCERIN/D5W 100MCG/ML 20ML SYR ONE (10:23)
[2022-04-28] MEDS ORDERED: fentaNYL citrate 100 MCG/2 ML VIAL ONE (10:23)
--- NOTE | 2022-04-28 11:13 | Post Anesthesia Assessment ---
Date of Service April 28, 2022 Post Sedation Assessment Vital Signs Temp Pulse Pulse Pulse Resp BP BP 04/28/22 09:39 84 16 128/74 04/28/22 08:08 36.9 C 73 18 137/71 04/27/22 22:22 69 04/28/22 04:16 36.5 C 63 18 115/67 04/27/22 22:30 36.9 C 67 18 103/62 04/27/22 20:02 36.6 C 69 18 113/64 04/27/22 17:30 81 04/27/22 16:35 36.9 C 73 20 99/61 L 04/27/22 15:04 36.7 C 75 20 91/59 L 04/27/22 13:40 70 16 97/57 L 04/27/22 12:34 36.7 C 70 16 90/50 L Pulse Ox O2 Del Method O2 Flow Rate 04/28/22 09:39 96 Room Air 04/28/22 08:08 99 Nasal Cannula 3 04/27/22 22:22 04/28/22 04:16 98 Nasal Cannula 2 04/27/22 22:30 100 Nasal Cannula 2 04/27/22 20:02 99 Nasal Cannula 2 04/27/22 17:30 04/27/22 16:35 100 Nasal Cannula 2 04/27/22 15:04 90 Room Air 04/27/22 13:40 91 Room Air 04/27/22 12:34 96 Nasal Cannula 1 Recovery Score Activity: Moves 4 extremities Respiration: Deep Breath/Cough Circulation: +/-20% PreAnes Value Consciousness: Fully Awake Oxygen Saturation: > 92% On Room Air Discharge Sedation Level of Care: Fast Track Phase II Post Sedation Plan On clinical assessment, the patient appears to have tolerated the sedation without complications. Patient is recovering as anticipated. Patient will continue to be monitored by nursing and may be discharged when sedation discharge criteria are met per below protocol. Upon Completions of procedure up to 15 minutes continue every 5 minute vital signs and the P.A.R. score; then discharge to a Phase I or Fast Track to Phase II per the following guidelines: * Discharge Patient to appropriate Phase II area if PAR is 8 or greater or return to pre- procedure baseline. The post - procedure orders will be as directed. * If PAR score is less than 8 or not return to pre-procedure baseline then patient will follow Phase I monitoring till PAR is reached for Phase II. The Phase I may be done in procedure room or may call to secure a Phase I area. * If naloxone or flumazenil are used for reversal, hold in Phase I for continued monitoring from when last reversal dose was given for a minimum of 60 minutes or longer pending the nurse and/or physician discretion of patient condition before discharge to Phase II. Please call the Sedation Physician to re-evaluate and complete post-note for discharge to Phase II area. Do NOT discharge from procedure sedation or Phase 1 until post- sedation evaluation note is complete by procedure /sedation MD Sedation Discharge Instructions to be given to the patient at discharge to home.
--- NOTE | 2022-04-28 11:13 | Cardiac Catheterization ---
[facility] Data: Shaper Operator Cardiac Status Clinical evaluation leading to the procedure CAD Presenation: Non STEMI Diagnostic Physicians Name: Justin Perez MD Closure Device Recommendations: Medical Therapy and/or Counseling Cardiac Cath Procedure Full Procedure Date April 28, 2022 Pre-Procedure Diagnosis Pre-Procedure Diagnosis: Non STEMI AUC Score AUC Score: 8 Post-Procedure Diagnosis Post-Procedure Diagnosis: Moderate CAD Procedure(s) Performed Procedure(s) Performed: Coronary Angiography and Left Heart Cath Wheel [employer] Fortune Dealer Justin Perez MD Draft Roller Picker(s) none Estimated Blood Loss Estimated Blood Loss: 8cc Medication(s) Medication(s): Diphenhydramine, Fentanyl, Heparin, Lidocaine 1%, Nicardipine, Nitroglycerin and Versed Summary of Findings Procedure performed: Left heart catheterization, selective coronary angiography Staff kick press setter: Justin Perez MD Indication: The patient is an 81-year-old woman who presented with elevated cardiac biomarkers and subtle regional wall motion abnormality on echocardiography. Based on an NSTEMI she was advised to consider coronary angiography. Procedure in detail: The patient was informed of the risks benefits and alternatives to the intended procedure, he understood such and wished to proceed. She was taken to the cardiac catheterization suite in a fasting state. Conscious sedation was administered per protocol and the patient was monitored electrocardiographically throughout today's procedure. The right wrist area was prepped and draped in usual sterile fashion. This area was anesthetized using subcutaneous administration of a lidocaine solution. The right radial artery was then ac cessed using Seldinger technique, and a arterial sheath was placed at this site over a guidewire. The sheath was used to facilitate passage of the cardiac catheter for coronary angiography and left heart catheterization. Coronary angiogram was then obtained in multiple orthogonal views prior to removal of the catheter. At the conclusion of the procedure the sheath was removed and hemostasis was achieved at the access site using manual pressure. The patient tolerated procedure well, there were no immediate complications. Equipment used: 5 Vietnamese [place] 4, 5 Vietnamese 3 [facility] Findings: Coronary angiography Left main: Left main coronary is normal in size and caliber and bifurcated normally into the left anterior descending and left circumflex arteries. No disease in this vessel Left anterior descending colon left anterior descending was a large transapical vessel. There was approximately 40 to 50% stenosis in a long segment of the mid vessel. No other obstructive lesions Left circumflex: Left circumflex was a nondominant vessel. There were no obstructive lesions in this distribution Right coronary: Right coronary was a dominant vessel. There was a focal segment in the proximal vessel estimated at 60 to 70% stenosis. The remainder of the right coronary was free of obstructive lesions. Impression: Right dominant coronary system Normal left ventricular filling pressures Nonobstructive disease involving the LAD Moderate to severe stenosis of the proximal right coronary No evidence of aortic stenosis Hemodynamics Rest Ao:: 102/53 mmHg Final Ao: 131/62 mmHg LV: 108/0 mmHg LVEDP 3 mmHg Recommendations Recommendations: Medical Therapy and/or Counseling Specimens Specimens: None Radiation Exposure (mGy) 542 Contrast (mls) 45 Disposition PCU I attest to the content of the Intraoperative Record and any orders documented therein. Any exceptions are noted below. [facility] Card Cath Procedure Codes Cardiac Catheterization Procedure 1: Cardiovascular Cath Procedures: 78137 Coronaries and LHC (+/-LV) Moderate Sedation Procedure 1: Sedation/Anesthesia: 20303 Mod Sedation by the same physician;Init15 Min Child Age 5 & Up Procedure 2: Sedation/Anesthesia: 40774 Mod Sedation by the same physician; Ea [id number] Minutes PG Care Time/CCT Total # of Minutes Spent Total Time Spent with Patient: Total time spent is greater than 50% in coordination of care (as documented) at patient's floor/unit and/or counseling patient:
--- NOTE | 2022-04-28 11:36 | Cardiology Progress Note ---
Date of Service April 28, 2022 Assessment & Plan (1) Abnormal EKG: (2) Elevated troponin: Plan 1. Elevated troponin: She has significant rise in her cardiac biomarkers. Coronary angiography did not reveal any evidence of an acute coronary syndrome. She does have some probably obstructive disease involving the proximal RCA in this could have represented some substrate for demand ischemia in the setting of her presentation was severely low blood glucose. She has no history of angina or coronary insufficiency. Overall LV function was normal. No percutaneous intervention was performed. Continue aggressive risk factor modification and monitor her for any symptoms. I will discontinue her heparin. 2. Abnormal EKG: Prolonged QT likely related to electrolyte derangement. Calcium supplemented today. Will repeat EKG. No arrhythmias noted on telemetry Admission and Anticipated Discharge Date Admission Date: April 27, 2022 Subjective This morning the patient complained of some mild weakness but otherwise no complaints. She denied any history of chest pain or current chest pain. She denies any breathing difficulty. No sense of palpitation. No dizziness. Review of Systems Review of Systems: Per HPI. Hungry Physical Exam Physical Exam: She is alert and oriented x3. Mood affect appear normal. She answered all questions appropriately. HEENT: Sclerae are anicteric. Neuro: Cranial nerves intact Lungs: Lungs are clear to auscultation bilaterally. There are no rales wheezes or rhonchi. She has normal respiratory effort without use of accessory muscles. There is normal pulmonary excursion. Cardiac: The rhythm was regular. S1 and S2 were normal. There are no murmurs on examination. The PMI was not markedly displaced on palpation. Abdomen: The abdomen was soft and nontender. Extremities: Patient has bilateral radial pulses that are equal in intensity. There is no evidence cyanosis or clubbing. There was no evidence of significant peripheral edema bilaterally. Skin: There are no rashes noted on examination today. Results & Data ([facility]) Vital Signs (Past 12 Hours) Vital Signs Temp Pulse Pulse Resp BP Pulse Ox O2 Del Method 04/28/22 11:24 70 15 141/72 H 92 Room Air 04/28/22 09:39 84 16 128/74 96 Room Air 04/28/22 08:08 36.9 C 73 18 137/71 99 Nasal Cannula 04/28/22 04:16 36.5 C 63 18 115/67 98 Nasal Cannula O2 Flow Rate 04/28/22 11:24 04/28/22 09:39 04/28/22 08:08 3 04/28/22 04:16 2 Laboratory Results Abnormal Lab Results 04/27/22 04/27/22 04/27/22 11:44 12:11 12:11 WBC RBC Hgb Hct MCV MCH MCHC RDW Std Deviation RDW Coeff of [place] Plt Count MPV Immature Gran % (Auto) Neut % (Auto) Lymph % (Auto) [place] % (Auto) Eos % (Auto) Baso % (Auto) Neut # (Auto) Lymph # (Auto) [place] # (Auto) Eos # (Auto) Baso # (Auto) Immature Gran # (Auto) Echinocytes APTT PTT Ratio Sodium Potassium Chloride Carbon Dioxide Anion Gap BUN Creatinine Est Cr Clr Drug Dosing Est GFR ( Amer) Est GFR (Non-Af Amer) BUN/Creatinine Ratio Glucose POC Glucose 70 Calcium Troponin I High Sens 8086.7 H* D Random Cortisol 5.13 04/27/22 04/27/22 04/27/22 15:30 16:40 19:37 WBC RBC Hgb Hct MCV MCH MCHC RDW Std Deviation RDW Coeff of [place] Plt Count MPV Immature Gran % (Auto) Neut % (Auto) Lymph % (Auto) [place] % (Auto) Eos % (Auto) Baso % (Auto) Neut # (Auto) Lymph # (Auto) [place] # (Auto) Eos # (Auto) Baso # (Auto) Immature Gran # (Auto) Echinocytes APTT PTT Ratio Sodium Potassium Chloride Carbon Dioxide Anion Gap BUN Creatinine Est Cr Clr Drug Dosing Est GFR ( Amer) Est GFR (Non-Af Amer) BUN/Creatinine Ratio Glucose POC Glucose 105 H 102 H 129 H Calcium Troponin I High Sens Random Cortisol 04/27/22 04/27/22 04/27/22 21:11 21:11 22:20 WBC RBC Hgb Hct MCV MCH MCHC RDW Std Deviation RDW Coeff of [place] Plt Count MPV Immature Gran % (Auto) Neut % (Auto) Lymph % (Auto) [place] % (Auto) Eos % (Auto) Baso % (Auto) Neut # (Auto) Lymph # (Auto) [place] # (Auto) Eos # (Auto) Baso # (Auto) Immature Gran # (Auto) Echinocytes APTT 54.7 H* PTT Ratio 2.0 Sodium Potassium Chloride Carbon Dioxide Anion Gap BUN Creatinine Est Cr Clr Drug Dosing Est GFR ( Amer) Est GFR (Non-Af Amer) BUN/Creatinine Ratio Glucose POC Glucose 158 H Calcium Troponin I High Sens 5569.4 H* D Random Cortisol 04/28/22 04/28/22 04/28/22 02:16 02:24 07:23 WBC RBC Hgb Hct MCV MCH MCHC RDW Std Deviation RDW Coeff of [place] Plt Count MPV Immature Gran % (Auto) Neut % (Auto) Lymph % (Auto) [place] % (Auto) Eos % (Auto) Baso % (Auto) Neut # (Auto) Lymph # (Auto) [place] # (Auto) Eos # (Auto) Baso # (Auto) Immature Gran # (Auto) Echinocytes APTT PTT Ratio Sodium Potassium Chloride Carbon Dioxide Anion Gap BUN Creatinine Est Cr Clr Drug Dosing Est GFR ( Amer) Est GFR (Non-Af Amer) BUN/Creatinine Ratio Glucose POC Glucose 228 H 215 H 215 H Calcium Troponin I High Sens Random Cortisol 04/28/22 04/28/22 04/28/22 08:03 08:03 08:03 WBC 1.96 L RBC 3.43 L Hgb 10.5 L Hct 31.8 L MCV 92.7 MCH 30.6 MCHC 33.0 RDW Std Deviation 44.9 RDW Coeff of Yanick 13.2 Plt Count 110 L MPV 11.5 Immature Gran % (Auto) 0.5 Neut % (Auto) 68.4 Lymph % (Auto) 20.9 [place]es % (Auto) 9.7 Eos % (Auto) 0.0 Baso % (Auto) 0.5 Neut # (Auto) 1.34 L Lymph # (Auto) 0.41 L [place] # (Auto) 0.19 L Eos # (Auto) 0.00 Baso # (Auto) 0.01 Immature Gran # (Auto) 0.01 Echinocytes 1+ APTT 51.0 H* PTT Ratio 1.9 Sodium 135 L Potassium 4.0 Chloride 106 Carbon Dioxide 26 Anion Gap 3 BUN 12 Creatinine 0.53 L Est Cr Clr Drug Dosing 65.8 Est GFR ( Amer) 103.2 Est GFR (Non-Af Amer) 89.0 BUN/Creatinine Ratio 22.6 H Glucose 210 H POC Glucose Calcium 6.9 L Troponin I High Sens Random Cortisol Diagnostic Findings Imaging studies is not reveal any acute intracranial processes included head CT x2 and an MRI Chest x-ray demonstrated cardiomegaly without acute cardiopulmonary process. Echocardiogram demonstrated overall preserved LV systolic function with questionable wall motion abnormality involving the distal anterolateral wall. Cardiac catheterization performed today revealed nonobstructive disease involving the mid LAD and 60-70% proximal RCA lesion without evidence of acute coronary syndrome. Normal left ventricular filling pressures PG Care Time/CCT Total # of Minutes Spent Total Time Spent with Patient: Total time spent is greater than 50% in coordination of care (as documented) at patient's floor/unit and/or counseling patient: Coding Level of Care Code 67652 Subseq Hosp Care Lvl 2 Diagnoses Abnormal EKG R94.31 Elevated troponin R77.8
[2022-04-28 12:37] LABS: Anti Nuclear Antibody Screen POSITIVE (NEGATIVE)
[2022-04-28 12:59] LABS: 18KDIGG Band REACTIVE; 23KDIGG Band REACTIVE; 23KDIGM Band NON-REACTIVE; 28KDIGG Band NON-REACTIVE; 30KDIGG Band REACTIVE; 39KDIGG Band REACTIVE; 39KDIGM Band NON-REACTIVE; 41KDIGG Band REACTIVE; 41KDIGM Band NON-REACTIVE; 45KDIGG Band REACTIVE; 58KDIGG Band REACTIVE; 66KDIGG Band NON-REACTIVE; 93KDIGG Band REACTIVE; Lyme Antibodies, WB IgG POSITIVE (NEGATIVE); Lyme Antibodies, WB IgM NEGATIVE (NEGATIVE)
[2022-04-28] MEDS: cefTRIAXone SODIUM 1,000 MG in DEXTROSE 5% AD-VAN 50 ML IV SCH (13:18)
--- NOTE | 2022-04-28 16:05 | Hospitalist Progress Note ---
Date of Service April 28, 2022 Assessment & Plan (1) Hypoglycemia: Plan: suspect 2nd to adrenal insufficiency - hypoglycemia resolved. stop dextrose in IV fluids. cont dexamethasone 4mg TID today, then change to 2mg BID dosing tomorrow. of note - dexamethasone does NOT interfere with cosyntropin stimulation test assay. serial BSGs. likely cause of initial confusion at her home as BSG in the field was 30 by report. (2) Hypotension: Plan: suspect 2nd to adrenal insufficiency. can't rule out sepsis but doubt. s/p copious IVF since admission. BPs now normal. cont IV fluids overnight, then stop fluids in am. (3) Elevated troponin: Plan: peak HS trop - 8000 echo with subtle anterior WMA noted Dr Perez from cardiology completed diagnostic heart cath today - mild CAD found but nothing obstructive/severe; no intervention needed thus - elevated troponin was type 2 IN / myocardial demand ischemia rather than true ACS stop heparin drip cont asa 81mg daily check lipids while here (4) Confusion: Plan: 2nd to hypoglycemia 2nd to hypotension can't rule out metabolic from lyme disease resolved mental status normal today (5) Adrenal insufficiency: Plan: cortisol level 5 at presentation given low glucose, low BPs, salt cravings, weight loss at home, dizziness, etc - clinical picture most c/w adrenal insufficiency started dexamethasone 4mg TID (selected this as dex will not interfere with cosyntropin stim test assay) ACTH level sent to determine primary vs secondary adrenal insufficiency perform cosyntropin stim test tomorrow AM at 800 NPO starting 2200 tonight can lower dexamethasone to 2mg IV BID if stim test confirms the diagnosis ultimately change dexamethasone to hydrocortisone will need endocrinology consultation as outpatient (6) Positive Lyme disease serology: Plan: treated for Lyme in 2018 however - IgG +, IgM neg on screen this admission Western Blot has returned -- 9 IgG bands are reactive thus, 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, chronic Lyme change rocephin to doxy 100mg BID and treat for 14 days check for concomitant anaplasmosis with anaplasmosis smear in am (7) Hypothyroidism: Plan: TSH wnl cont levothyroxine 75mcg daily (8) Hyperlipidemia: Plan: was not on meds for such on home check lipids while here and Rx given cath showing CAD (9) Benign hypertension: Plan: now with hypotension - see above not on BP meds at home (10) Asthma: Plan: no flare at this time does have mild cough x 7 days -- check cxr, r/o developing pneumonia (11) Abnormal EKG: Plan: ST segment depression V4-V6 in light of elevated troponins and echo findings - concerning for CAD diagnostic cath today with CAD but no high-grade lesions appreciate cardiology assistance (12) Multiple myeloma: Plan: known history but no Rx since 2019 based on records from [facility] (13) Pancytopenia: Plan: 2nd to #12?? 2nd to tick-borne infection? B12 level 01/2022 wnl TSH wnl cbc in am for stability (14) Hyponatremia: Plan: likely from volume depletion from adrenal insufficiency resolved with IV fluids Plan left message for pt's on voicemail this evening as well as 04/27 Admission and Anticipated Discharge Date Admission Date: April 27, 2022 Subjective patient reports "feeling better" she underwent heart cath this am and everything went well mild CAD found but no significant obstructive disease patient reports appetite is improved energy improved still has dry cough - present for about 1 week we discussed the suspected adrenal insufficiency she reports the following over the last few months - weakness/fatigue (she was blaming this on hypothyroidism), salt cravings, dizziness with standing tele overnight wnl we discussed her Lyme disease she was treated for in 2018 again [place] Review of Systems Review of Systems: gen - no fevers, no chills, energy improved; weight loss last few months - 10-15 pounds cv - no chest pain pulm - mild cough, dry; no dyspnea GI - no N/V - voiding ok musculo - no myalgias Physical Exam Physical Exam: gen - thin, looks better today; awake/alert mouth - MMM neck - no JVD heart - RRR, s1 s2, no murmur lungs - CTA b/l, decreased BS left base only; no rales, no wheeze abd - soft NT ND BS+; no HSM ext - no edema, pulses 2+ b/l skin - no rash psych - a/o x 3 Results & Data Results & Data ([facility]) Vital Signs (Past 12 Hours) Vital Signs Temp Pulse Pulse Pulse Resp BP BP 04/28/22 15:44 37.1 C 75 20 134/82 04/28/22 12:29 36.6 C 85 22 126/80 04/28/22 11:59 80 19 151/81 H 04/28/22 11:29 36.4 C L 73 20 132/73 04/28/22 11:30 79 04/28/22 11:30 04/28/22 11:41 123/73 04/28/22 11:24 70 15 141/72 H 04/28/22 09:39 84 16 128/74 04/28/22 08:08 36.9 C 73 18 137/71 04/28/22 04:16 36.5 C 63 18 115/67 Pulse Ox O2 Del Method O2 Flow Rate 04/28/22 15:44 93 Room Air 04/28/22 12:29 95 Room Air 04/28/22 11:59 96 Room Air 04/28/22 11:29 96 Room Air 04/28/22 11:30 04/28/22 11:30 Room Air 04/28/22 11:41 04/28/22 11:24 92 Room Air 04/28/22 09:39 96 Room Air 04/28/22 08:08 99 Nasal Cannula 3 04/28/22 04:16 98 Nasal Cannula 2 Laboratory Results Laboratory Results - last 24 hr 04/26/22 04/27/22 04/27/22 14:34 04:20 16:40 WBC RBC Hgb Hct MCV MCH MCHC RDW Std Deviation RDW Coeff of [place]ick Plt Count MPV Immature Gran % (Auto) Neut % (Auto) Lymph % (Auto) [place] % (Auto) Eos % (Auto) Baso % (Auto) Neut # (Auto) Lymph # (Auto) [place] # (Auto) Eos # (Auto) Baso # (Auto) Immature Gran # (Auto) Echinocytes APTT PTT Ratio Sodium Potassium Chloride Carbon Dioxide Anion Gap BUN Creatinine Est Cr Clr Drug Dosing Est GFR ( Amer) Est GFR (Non-Af Amer) BUN/Creatinine Ratio Glucose POC Glucose 102 H Calcium Troponin I High Sens ACTH GUS Screen POSITIVE A Lyme IgG (Western Blot) POSITIVE A Lyme IgG 18 kDa Band REACTIVE A Lyme IgG 23 kDa Band REACTIVE A Lyme IgG 28 kDa Band NON-REACTIVE Lyme IgG 30 kDa Band REACTIVE A Lyme IgG 39 kDa Band REACTIVE A Lyme IgG 41 kDa Band REACTIVE A Lyme IgG 45 kDa Band REACTIVE A Lyme IgG 58 kDa Band REACTIVE A Lyme IgG 66 kDa Band NON-REACTIVE Lyme IgG 93 kDa Band REACTIVE A Lyme IgM Ab (WB) NEGATIVE Lyme IgM 23 kDa Band NON-REACTIVE Lyme IgM 39 kDa Band NON-REACTIVE Lyme IgM 41 kDa Band NON-REACTIVE 04/27/22 04/27/22 04/27/22 19:37 21:11 21:11 WBC RBC Hgb Hct MCV MCH MCHC RDW Std Deviation RDW Coeff of [place] Plt Count MPV Immature Gran % (Auto) Neut % (Auto) Lymph % (Auto) [place] % (Auto) Eos % (Auto) Baso % (Auto) Neut # (Auto) Lymph # (Auto) [place] # (Auto) Eos # (Auto) Baso # (Auto) Immature Gran # (Auto) Echinocytes APTT 54.7 H* PTT Ratio 2.0 Sodium Potassium Chloride Carbon Dioxide Anion Gap BUN Creatinine Est Cr Clr Drug Dosing Est GFR ( Amer) Est GFR (Non-Af Amer) BUN/Creatinine Ratio Glucose POC Glucose 129 H Calcium Troponin I High Sens 5569.4 H* D ACTH GUS Screen Lyme IgG (Western Blot) Lyme IgG 18 kDa Band Lyme IgG 23 kDa Band Lyme IgG 28 kDa Band Lyme IgG 30 kDa Band Lyme IgG 39 kDa Band Lyme IgG 41 kDa Band Lyme IgG 45 kDa Band Lyme IgG 58 kDa Band Lyme IgG 66 kDa Band Lyme IgG 93 kDa Band Lyme IgM Ab (WB) Lyme IgM 23 kDa Band Lyme IgM 39 kDa Band Lyme IgM 41 kDa Band 04/27/22 04/28/22 04/28/22 22:20 02:16 02:24 WBC RBC Hgb Hct MCV MCH MCHC RDW Std Deviation RDW Coeff of Yanick Plt Count MPV Immature Gran % (Auto) Neut % (Auto) Lymph % (Auto) [place] % (Auto) Eos % (Auto) Baso % (Auto) Neut # (Auto) Lymph # (Auto) [place] # (Auto) Eos # (Auto) Baso # (Auto) Immature Gran # (Auto) Echinocytes APTT PTT Ratio Sodium Potassium Chloride Carbon Dioxide Anion Gap BUN Creatinine Est Cr Clr Drug Dosing Est GFR ( Amer) Est GFR (Non-Af Amer) BUN/Creatinine Ratio Glucose POC Glucose 158 H 228 H 215 H Calcium Troponin I High Sens ACTH GUS Screen Lyme IgG (Western Blot) Lyme IgG 18 kDa Band Lyme IgG 23 kDa Band Lyme IgG 28 kDa Band Lyme IgG 30 kDa Band Lyme IgG 39 kDa Band Lyme IgG 41 kDa Band Lyme IgG 45 kDa Band Lyme IgG 58 kDa Band Lyme IgG 66 kDa Band Lyme IgG 93 kDa Band Lyme IgM Ab (WB) Lyme IgM 23 kDa Band Lyme IgM 39 kDa Band Lyme IgM 41 kDa Band 04/28/22 04/28/22 04/28/22 07:23 08:03 08:03 WBC 1.96 L RBC 3.43 L Hgb 10.5 L Hct 31.8 L MCV 92.7 MCH 30.6 MCHC 33.0 RDW Std Deviation 44.9 RDW Coeff of Yanick 13.2 Plt Count 110 L MPV 11.5 Immature Gran % (Auto) 0.5 Neut % (Auto) 68.4 Lymph % (Auto) 20.9 Harvey % (Auto) 9.7 Eos % (Auto) 0.0 Baso % (Auto) 0.5 Neut # (Auto) 1.34 L Lymph # (Auto) 0.41 L Harvey # (Auto) 0.19 L Eos # (Auto) 0.00 Baso # (Auto) 0.01 Immature Gran # (Auto) 0.01 Echinocytes 1+ APTT 51.0 H* PTT Ratio 1.9 Sodium Potassium Chloride Carbon Dioxide Anion Gap BUN Creatinine Est Cr Clr Drug Dosing Est GFR ( Amer) Est GFR (Non-Af Amer) BUN/Creatinine Ratio Glucose POC Glucose 215 H Calcium Troponin I High Sens ACTH GUS Screen Lyme IgG (Western Blot) Lyme IgG 18 kDa Band Lyme IgG 23 kDa Band Lyme IgG 28 kDa Band Lyme IgG 30 kDa Band Lyme IgG 39 kDa Band Lyme IgG 41 kDa Band Lyme IgG 45 kDa Band Lyme IgG 58 kDa Band Lyme IgG 66 kDa Band Lyme IgG 93 kDa Band Lyme IgM Ab (WB) Lyme IgM 23 kDa Band Lyme IgM 39 kDa Band Lyme IgM 41 kDa Band 04/28/22 04/28/22 04/28/22 08:03 08:03 11:52 WBC RBC Hgb Hct MCV MCH MCHC RDW Std Deviation RDW Coeff of [place] Plt Count MPV Immature Gran % (Auto) Neut % (Auto) Lymph % (Auto) Harvey % (Auto) Eos % (Auto) Baso % (Auto) Neut # (Auto) Lymph # (Auto) Harvey # (Auto) Eos # (Auto) Baso # (Auto) Immature Gran # (Auto) Echinocytes APTT PTT Ratio Sodium 135 L Potassium 4.0 Chloride 106 Carbon Dioxide 26 Anion Gap 3 BUN 12 Creatinine 0.53 L Est Cr Clr Drug Dosing 65.8 Est GFR ( Amer) 103.2 Est GFR (Non-Af Amer) 89.0 BUN/Creatinine Ratio 22.6 H Glucose 210 H POC Glucose 151 H Calcium 6.9 L Troponin I High Sens ACTH Pending GUS Screen Lyme IgG (Western Blot) Lyme IgG 18 kDa Band Lyme IgG 23 kDa Band Lyme IgG 28 kDa Band Lyme IgG 30 kDa Band Lyme IgG 39 kDa Band Lyme IgG 41 kDa Band Lyme IgG 45 kDa Band Lyme IgG 58 kDa Band Lyme IgG 66 kDa Band Lyme IgG 93 kDa Band Lyme IgM Ab (WB) Lyme IgM 23 kDa Band Lyme IgM 39 kDa Band Lyme IgM 41 kDa Band PG Care Time/CCT Total # of Minutes Spent Total Time Spent with Patient: Total time spent is greater than 50% in coordination of care (as documented) at patient's floor/unit and/or counseling patient: Coding Level of Care Code 75655 Subseq Hosp Care Lvl 3 Diagnoses Hypoglycemia E16.2 Hypotension I95.9 Elevated troponin R77.8 Confusion R41.0 Adrenal insufficiency E27.40 Positive Lyme disease serology R76.8 Hypothyroidism E03.9 Hyperlipidemia E78.5 Benign hypertension I10 Asthma J45.909 Abnormal EKG R94.31 Multiple myeloma C90.00 Multiple myeloma remission status: unspecified Pancytopenia D61.818 Hyponatremia E87.1 (1) Multiple myeloma Multiple myeloma remission status: unspecified Qualified Code(s): C90.00 - Multiple myeloma not having achieved remission
--- NOTE | 2022-04-28 17:40 | XRay Report ---
XR chest 2V PA/lateral HISTORY: 81 years-old Female LLL pneumonia? Acute shortness of breath COMPARISON: 04/27/2022 TECHNIQUE: PA and lateral views of the chest FINDINGS: Cardiac silhouette is enlarged. Atherosclerosis of the aorta. No pneumothorax or overt pulmonary marlon a. Trace pleural effusions with mild left lung base densities. No lobar airspace consolidation. Degen erative changes of the shoulders and spine. Sigmoidal thoracolumbar scoliosis with descending thoraci c aortic tortuosity. IMPRESSION: 1. Mild cardiac megaly without pulmonary edema. 2. Trace pleural effusions with mild left lung base densities suggestive of probable atelectasis. ACT 112: Negative or not required by law. The above report was generated using voice recognition software. It may contain grammatical, syntax o r spelling errors. Electronically signed by: Girish Olvera M.D. 04/28/2022 5:38 PM
--- NOTE | 2022-04-28 18:24 | Electrocardiogram Report ---
Test Reason : Blood Pressure : / mmHG Vent. Rate : 070 BPM Atrial Rate : 070 BPM P-R Int : 206 ms QRS Dur : 082 ms QT Int : 445 ms P-R-T Axes : 080 -47 085 degrees QTc Int : 481 ms Sinus rhythm with occasional Premature ventricular complexes Left axis deviation Poor R wave progression, consider anterior NC vs. lead placement vs. LVH Abnormal ECG Confirmed by Justin Perez ([id number]) on 04/28/2022 6:24:26 PM Referred By: REFERRED SELF Confirmed By:Rohith Perez
[2022-04-29] MEDS: LEVOTHYROXINE SODIUM 75 MCG TABLET PO SCH (05:36)
[2022-04-29] MEDS ORDERED: COSYNTROPIN 1 MCG in SYRINGE 0 ML IV ONE (08:00)
[2022-04-29 08:58] LABS: Hematocrit (blood only) 32.1 % (34.1-44.9); Hemoglobin 10.4 g/dl (12.0-16.0); Mean Corpuscular Hemoglobin 30.6 pg (25.0-34.0); Mean Corpuscular Hgb Conc 32.4 g/dL (32.0-36.0); Mean Corpuscular Volume 94.4 fL (80.0-100.0); Mean Platelet Volume 11.2 fL (9.4-12.3); Platelet Count 125 K/uL (130-400); RDW Coefficient of Variation 13.4 % (11.5-14.5); RDW Standard Deviation 46.4 fL (36.4-46.3); White Blood Count 5.19 K/ul (4.8-10.8)
[2022-04-29] MEDS ORDERED: dexAMETHasone 2 MG in SYRINGE 0 ML IV SCH (09:00)
[2022-04-29] MEDS ORDERED: DOXYCYCLINE HYCLATE 100 MG CAP PO SCH (09:00)
[2022-04-29 09:30] LABS: Immature Granulocytes # (auto) 0.05 K/uL (0.00-0.02); Lymphocytes # (auto) 0.43 K/uL (1.2-3.4); Lymphocytes % (auto) 8.3 %; Monocytes % (auto) 3.9 %; Neutrophils # (auto) 4.51 K/uL (1.4-6.5); Neutrophils % (auto) 86.8 %
[2022-04-29 09:31] LABS: BUN Creatinine Ratio 28.1 (10-20); Calcium 7.7 mg/dl (8.5-10.1); Chol HDL Ratio 6.1 (0-5); Creatinine Clr Calc Pharmacy 61.2 ml/min; Est GFR (African American) 100.8 ml/min; Est GFR (Non-African American) 86.9 ml/min; Potassium 4.3 mmol/L (3.5-5.1)
[2022-04-29] MEDS: ASPIRIN 81 MG ECTAB PO SCH (11:09)
[2022-04-29] MEDS: SODIUM CHLORIDE 0.9% 1000ML 1,000 ML IV SCH (11:14)
[2022-04-29 14:14] LABS: ANA Pattern Nuclear, Speckled; ANA Pattern 2 Nuclear, Homogeneous
--- NOTE | 2022-04-29 16:20 | Cardiology Progress Note ---
Date of Service April 29, 2022 Assessment & Plan (1) Abnormal EKG: (2) Elevated troponin: Plan 1. Elevated troponin: No evidence of acute coronary syndrome on angiography yesterday. Likely demand ischemia the setting of her severe hypoglycemia. 2. Abnormal EKG: Improved electrolyte replenishment. 3. Coronary artery disease: She has nonobstructive disease in the mid LAD and borderline obstructive disease in the proximal RCA. No symptoms. No stenting or percutaneous intervention was performed. She would benefit from aggressive secondary prevention. Would recommend adding atorvastatin 20 mg daily. Admission and Anticipated Discharge Date Admission Date: April 27, 2022 Subjective This afternoon the patient was anxious for discharge. No pain at the right radial access site. She reports good function and sensation in the right hand. Review of Systems Review of Systems: Per HPI Physical Exam Physical Exam: She is alert and oriented x3. Mood affect appear normal. She answered all questions appropriately. HEENT: Sclerae are anicteric. Pupils are equal and reactive to light and accommodation. Extraocular movements were intact. Neuro: Cranial nerves intact Lungs: Normal respiratory effort Extremities: Palpable right radial pulse. Cool right hand but similar to the left. Skin: There are no rashes noted on examination today. Results & Data ([facility]) Vital Signs (Past 12 Hours) Vital Signs Temp Pulse Pulse Pulse Resp BP BP 04/29/22 15:44 36.5 C 73 87 18 145/77 H 134/76 04/29/22 12:03 36.5 C 73 18 145/77 H 04/29/22 09:00 36.7 C 74 18 136/77 04/29/22 08:00 62 04/29/22 08:00 Pulse Ox O2 Del Method 04/29/22 15:44 97 04/29/22 12:03 97 Room Air 04/29/22 09:00 94 Room Air 04/29/22 08:00 04/29/22 08:00 Room Air Laboratory Results Abnormal Lab Results 04/27/22 04/28/22 04/28/22 04:20 16:21 19:34 WBC RBC Hgb Hct MCV MCH MCHC RDW Std Deviation RDW Coeff of [place]ick Plt Count MPV Immature Gran % (Auto) Neut % (Auto) Lymph % (Auto) [place] % (Auto) Eos % (Auto) Baso % (Auto) Neut # (Auto) Lymph # (Auto) [place] # (Auto) Eos # (Auto) Baso # (Auto) Immature Gran # (Auto) Sodium Potassium Chloride Carbon Dioxide Anion Gap BUN Creatinine Est Cr Clr Drug Dosing Est GFR ( Amer) Est GFR (Non-Af Amer) BUN/Creatinine Ratio Glucose POC Glucose 156 H 150 H Calcium Triglycerides Cholesterol LDL Cholesterol, Calc VLDL Cholesterol, Calc HDL Cholesterol Cholesterol/HDL Ratio Folate Cortisol Response GUS Screen POSITIVE A GUS Titer 1:80 H GUS Titer 2 1:80 H GUS Pattern Nuclear, Speckled A GUS Pattern 2 Nuclear, Homogeneous A Anaplasma Smear 04/29/22 04/29/22 04/29/22 00:01 04:14 07:39 WBC RBC Hgb Hct MCV MCH MCHC RDW Std Deviation RDW Coeff of [place]ick Plt Count MPV Immature Gran % (Auto) Neut % (Auto) Lymph % (Auto) [place] % (Auto) Eos % (Auto) Baso % (Auto) Neut # (Auto) Lymph # (Auto) [place] # (Auto) Eos # (Auto) Baso # (Auto) Immature Gran # (Auto) Sodium Potassium Chloride Carbon Dioxide Anion Gap BUN Creatinine Est Cr Clr Drug Dosing Est GFR ( Amer) Est GFR (Non-Af Amer) BUN/Creatinine Ratio Glucose POC Glucose 141 H 134 H 133 H Calcium Triglycerides Cholesterol LDL Cholesterol, Calc VLDL Cholesterol, Calc HDL Cholesterol Cholesterol/HDL Ratio Folate Cortisol Response GUS Screen GUS Titer GUS Titer 2 GUS Pattern GUS Pattern 2 Anaplasma Smear 04/29/22 04/29/22 04/29/22 08:22 08:22 08:22 WBC 5.19 RBC 3.40 L Hgb 10.4 L Hct 32.1 L MCV 94.4 MCH 30.6 MCHC 32.4 RDW Std Deviation 46.4 H RDW Coeff of Yanick 13.4 Plt Count 125 L MPV 11.2 Immature Gran % (Auto) 1.0 Neut % (Auto) 86.8 Lymph % (Auto) 8.3 [place] % (Auto) 3.9 Eos % (Auto) 0.0 Baso % (Auto) 0.0 Neut # (Auto) 4.51 Lymph # (Auto) 0.43 L [place] # (Auto) 0.20 L Eos # (Auto) 0.00 Baso # (Auto) 0.00 Immature Gran # (Auto) 0.05 H Sodium 139 Potassium 4.3 Chloride 109 H Carbon Dioxide 25 Anion Gap 5 BUN 16 Creatinine 0.57 L Est Cr Clr Drug Dosing 61.2 Est GFR ( Amer) 100.8 Est GFR (Non-Af Amer) 86.9 BUN/Creatinine Ratio 28.1 H Glucose 129 H POC Glucose Calcium 7.7 L Triglycerides 114 Cholesterol 171 LDL Cholesterol, Calc 120 VLDL Cholesterol, Calc 23 HDL Cholesterol 28 Cholesterol/HDL Ratio 6.1 H Folate > 22.30 Cortisol Response GUS Screen GUS Titer GUS Titer 2 GUS Pattern GUS Pattern 2 Anaplasma Smear See Comment 04/29/22 04/29/22 08:22 11:23 WBC RBC Hgb Hct MCV MCH MCHC RDW Std Deviation RDW Coeff of [place]ick Plt Count MPV Immature Gran % (Auto) Neut % (Auto) Lymph % (Auto) [place] % (Auto) Eos % (Auto) Baso % (Auto) Neut # (Auto) Lymph # (Auto) [place] # (Auto) Eos # (Auto) Baso # (Auto) Immature Gran # (Auto) Sodium Potassium Chloride Carbon Dioxide Anion Gap BUN Creatinine Est Cr Clr Drug Dosing Est GFR ( Amer) Est GFR (Non-Af Amer) BUN/Creatinine Ratio Glucose POC Glucose 111 H Calcium Triglycerides Cholesterol LDL Cholesterol, Calc VLDL Cholesterol, Calc HDL Cholesterol Cholesterol/HDL Ratio Folate Cortisol Response GUS Screen GUS Titer GUS Titer 2 GUS Pattern GUS Pattern 2 Anaplasma Smear PG Care Time/CCT Total # of Minutes Spent Total Time Spent with Patient: Total time spent is greater than 50% in coordination of care (as documented) at patient's floor/unit and/or counseling patient: Coding Level of Care Code 69108 Subseq Hosp Care Lvl 1 Diagnoses Abnormal EKG R94.31 Elevated troponin R77.8
--- NOTE | 2022-05-01 15:59 | Discharge Summary ---
Date of Service April 29, 2022 Admission HPI Per Admitting Provider Confused BSG in field 30 1 AMP d50 --> improved, appropriate and oriented Hypothyroidism --> TSH wnl Is not diabetic, Over last hour pt with increased confusion. CT-H --> naf. CRP elevated 5.44 trop 22.7 No UTI, NO evidence of PNA, covid/flu negative Domenica is an 81-year-old female with a past medical history of hypothyroidism, UTI, hyperlipidemia, asthma, and multiple myeloma who presents with acute conf usion. Per ER report patient had a blood sugar of 30 which improved after an amp of D50 with some improvement of confusion, but over observation of several hours in the ER patient was continuing to act confused, wandering to bathrooms with explanations of why, attempting to remove IVs and generally with difficulty to redirect. This is a deviation from her normal baseline per family, although notes has seemed more confused at least over the last week. No fevers/chills noted, no leukocytosis, COVID/flu was negative but patient does have elevated ESR/CRP. Patient has a history of multiple myeloma. No gross electrolyte derangements. No urinary symptoms. Recommended for observation for continued confusion. She is seen at bedside, history is limited by confusion. She is pleasant and redirectable, but is not oriented to care and is not a good historian. She does not remember coming into the hospital, or why she is there. Denies fever, chills, sweats, pain in any current symptoms but is very limited by pleasant confusion which limits HPI. No family at bedside, call to primary contact to voicemail. Principal Diagnosis hypoglycemia likely secondary to adrenal insufficiency. Discharge Exam gen - thin, looks better today; awake/alert mouth - MMM neck - no JVD heart - RRR, s1 s2, no murmur lungs - CTA b/l, decreased BS left base only; no rales, no wheeze abd - soft NT ND BS+; no HSM ext - no edema, pulses 2+ b/l skin - no rash psych - a/o x 3 Discharge Data Allergies Allergy/AdvReac Type Severity Reaction Status Date / Time iodine Allergy Mild SPOTS Verified 04/26/22 19:41 BEHIND EARS,HEAVINESS IN LEGS AND ARMS X'S 24 HOURS clams Allergy Unknown Verified 04/26/22 19:41 Consultations 04/26/22 18:38 ED Decision to Admit Stat 04/27/22 14:18 Consult Cardiology Routine Procedures Performed Operation Date: 04/28/22 09:30 Actual Procedures p Cineradiography w/Routine Exam - Justin Perez MD p Cath, Left with Cors and Vent - Justin Perez MD Ordered Studies 04/26/22 14:03 CT head/brain wo con Stat 04/26/22 17:32 CT cervical spine wo con Stat CT head/brain wo con Stat 04/27/22 00:37 MR brain wo con Routine 04/28/22 09:10 CL Cath Imgs for PACS use only Stat Hospital Course (1) Hypoglycemia: suspect 2nd to adrenal insufficiency - hypoglycemia resolved. stop dextrose in IV fluids. cont dexamethasone 4mg TID today, then change to 2mg BID dosing tomorrow. will transition to hydrocortisone at discharge. D>W Endocrinology: results of cosyntropin testing were indeterminant. Appreciate input: Advised to discharged on hydrocortisone 15 mg in the morning, 5 mg 8 hours later, follow-up here in 2 weeks. May need to hold hydrocortisone and repeat the cosyntropin stimulation test 48 hours later, unless we find something on history/examination to further support the diagnosis of adrenal insufficiency. (2) Hypotension: suspect 2nd to adrenal insufficiency. can't rule out sepsis but doubt. s/p copious IVF since admission. BPs now normal. received IV fluids last night, now stopped. VItals stable. (3) Elevated troponin: peak HS trop - 8000 echo with subtle anterior WMA noted Dr Perez from cardiology completed diagnostic heart cath today - mild CAD found but nothing obstructive/severe; no intervention needed thus - elevated troponin was type 2 [place] / myocardial demand ischemia rather than true ACS stopped heparin drip cont asa 81mg daily check lipids while here (4) Confusion: 2nd to hypoglycemia 2nd to hypotension can't rule out metabolic from lyme disease resolved mental status normal today (5) Adrenal insufficiency: cortisol level 5 at presentation given low glucose, low BPs, salt cravings, weight loss at home, dizziness, etc - clinical picture most c/w adrenal insufficiency started dexamethasone 4mg TID (selected this as dex will not interfere with cosyntropin stim test assay) ACTH level sent to determine primary vs secondary adrenal insufficiency perform cosyntropin stim test tomorrow AM at 800 NPO starting 2200 tonight can lower dexamethasone to 2mg IV BID if stim test confirms the diagnosis ultimately change dexamethasone to hydrocortisone will need endocrinology consultation as outpatient (6) Positive Lyme disease serology: treated for Lyme in 2018 however - IgG +, IgM neg on screen this admission Western Blot has returned -- 9 IgG bands are reactive thus, 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 (9) Benign hypertension: now with hypotension - see above not on BP meds at home (10) Asthma: no flare at this time does have mild cough x 7 days -- check cxr, r/o developing pneumonia (11) Abnormal EKG: ST segment depression V4-V6 in light of elevated troponins and echo findings - concerning for CAD diagnostic cath today with CAD but no high-grade lesions appreciate cardiology assistance (12) Multiple myeloma: known history but no Rx since 2019 based on records from [facility] heme/onc (13) Pancytopenia: 2nd to #12?? 2nd to tick-borne infection? B12 level 01/2022 wnl TSH wnl (14) Hyponatremia: likely from volume depletion from adrenal insufficiency resolved with IV fluids Total Time Total Time Spent Total Time Spent (In Minutes): 60 Discharge Plan Discharge Items Patient Disposition: Home - Self-Care Reason For Visit: AMS Discharge Diagnosis: altered mental status/ hypogluycemia Activity: Resume your previous activity Non-emergency contact: Primary Care Provider Call non-emergency contact if: you have any medication questions Follow-up/Referrals: Marlo Mariano MD [Physician] - 05/05/22 10:30 am (Follow up appointment will be scheduled with Dr. Mariano April. Patient will be called with appointment information. 10:30 Nurse visit and 11:00 with Karly Anna PA-C) Lavonne Nevarez MD [Primary Care Provider] - 05/04/22 12:00 pm Diet: Heart Healthy Addtl Attending Provider Instructions: Good afternoon Mrs. Flores, You were found to be confused, with a low blood sugar, low cortisol level, and low blood pressure. This is highly suggestive of a cortisol deficiency. Your stimulation test however were inconclusive. Your ACTH level is pending. I had a discussion with Dr. Mariano who will be your Business Coordinator moving forward. He will see you in a couple of weeks to re-evaluate you. in regards to your home regimen, we will add hydrocortisone 15mg in the morning, with another tablet 5 hours later. will also continue doxycycline for possible chronic lyme Your next dose will be tonight. Script sent to the pharmacy. Also, please followup with your Primary Care doctor in 1-2 weeks. It was a pleasure meeting you and I hope you enjoy the holiday at home. Best regards, Benito Roca Pending Studies at Discharge: No Stand-Alone Forms: My [facility] [place], Smoking Cessation Medications and DC Order Prescriptions: New doxycycline hyclate 100 mg Capsule 100 mg PO BID Qty: 23 0RF hydrocortisone 5 mg tablet See Rx Instructions .ROUTE .COMPLEX Qty: 120 0RF Rx Instructions: By mouth daily: Take 3 tablets in the morning then take 1 tablet 8 hours later. Continued ferrous sulfate [FeroSul] 325 mg (65 mg iron) tablet 325 mg PO DAILY albuterol sulfate [ProAir HFA] 90 mcg/actuation HFA aerosol inhaler See Rx Instructions INH .COMPLEX PRN (Reason: Shortness Of Breath) Label Comments: 1-2 puffs INH every 4-6 hours PRN; Rx Instructions: 1-2 puffs INH every 4-6 hours PRN; levothyroxine [Synthroid] 75 mcg tablet 75 mcg PO DAILYBB 30 Days Qty: 30 5RF aspirin [Noel Low Dose Aspirin] 81 mg Tablet,Delayed Release (Dr/Ec) 81 mg PO DAILY calcium carbonate-vitamin D3 [Calcium 500 + D] 500 mg(1,250mg) -200 unit Tablet 1 tab PO DAILY Label Comments: unknown strength. list states 'calcium and vitamin d supplement' Xgeva 120 mg/1.7 mL (70 mg/mL) solution 120 mg SUBCUT UD Rx Instructions: every 3 months Discharge Orders: Discharge Order (Routine); Ordered 04/29/22 Ordered By: Benito Roca Admission Data Admit Date/Time: 04/27/22 14:09 Attending Provider: Benito Roca Admit Provider: Abran Metzger Primary Care Provider: Lavonne Nevarez Other Providers: Abran Metzger ; Justin Perez Other Interventions: Discharge Summary Assessment (RN) Last Done: 04/29/22 15:44 Coding Level of Care Code D/C DAY MANAGEMENT >30 MINS Diagnoses Hypoglycemia E16.2 Hypotension I95.9 Elevated troponin R77.8 Confusion R41.0 Adrenal insufficiency E27.40 Positive Lyme disease serology R76.8 Hypothyroidism E03.9 Hyperlipidemia E78.5 Benign hypertension I10 Asthma J45.909 Abnormal EKG R94.31 Multiple myeloma C90.00 Multiple myeloma remission status: unspecified Pancytopenia D61.818 Hyponatremia E87.1
== END 2022-04-29 17:05 | disposition home or self-care (01) | DRG 643 ==
LOC: EDINP 13:18 → ED 13:18 → SUATTDRO 19:03 → 3E 21:35 → SUATTDRO 04-27 14:09 → 2S 04-27 16:36